=== PATIENT | female | born 1950 | race Caucasian/White ===

== ENCOUNTER → 2024-04-19 13:18 | Outpatient (REF) | payer MEDICARE, OTHER, SELFPAY | LOC: WDC 13:18 | PROVIDERS: ATTENDING PHYSICIAN Obstetrics & Gynecology; FAMILY PHYSICIAN Family Medicine | DX: E55.9 Vitamin D deficiency, unspecified (principal); Z78.0 Asymptomatic menopausal state; Z12.31 Encounter for screening mammogram for malignant neoplasm of breast | CPT/HCPCS: 77080 ==

== ENCOUNTER → 2024-07-06 14:19 | Outpatient (REF) | payer MEDICARE, OTHER, SELFPAY | LOC: RAD 14:19 | PROVIDERS: ATTENDING PHYSICIAN Family Medicine | DX: E04.1 Nontoxic single thyroid nodule (principal) | CPT/HCPCS: 76536 ==

== ENCOUNTER → 2024-11-01 10:23 | Outpatient (REF) | payer MEDICARE, OTHER, SELFPAY ==
[2024-11-01 10:42] VITALS: BP 114/78; BP_SYST 85
== END ==
LOC: RADI 10:23
PROVIDERS: ATTENDING PHYSICIAN Nurse Practitioner Family; FAMILY PHYSICIAN Family Medicine
DX: E04.1 Nontoxic single thyroid nodule (principal)
CPT/HCPCS: 10005; 88173

== ENCOUNTER 2024-11-03 08:48 | Inpatient (IN) | payer MEDICARE, OTHER, SELFPAY ==
[2024-11-02] VITALS (14 sets, daily range): BP systolic 111–147; BP diastolic 51–81; PULSE 89–96; BMI 36.8; BMI 35.8
--- NOTE | 2024-11-02 10:46 | ED.GENMED ---
History of Present Illness
<Brody Lynn PA-C - Last Filed: 11/02/24 15:09>
General
Chief Complaint: Weakness
Time Seen by Provider: 11/02/24 10:31
History of Present Illness
History of Present Illness:
Patient is a 74-year-old female with past medical history of hypertension, prediabetes, and history of von Willebrand's disease, here today for evaluation of lightheadedness over the past 2 weeks. Patient states on 10/21/2024 while shaving she cut
her lower extremity and sustained bleeding. The bleeding lasted for approximately 20 minutes. Patient was evaluated in an urgent care. Bleeding eventually stopped. No intervention was performed. Tetanus vaccination was updated. Patient noted
shortly after that she felt lightheaded. She contacted her bilingual interpreter and blood work was ordered. Hemoglobin was found to be 8.4. Prior hemoglobin in April 2024 was 13.2. Patient's bilingual interpreter was planning on ordering a further workup to
assess why the patient was anemic. The patient has been persistently lightheaded over the past 2 weeks. No syncope. No chest pain or difficulty breathing. No vomiting. No rashes. No bleeding episodes additionally. No other acute complaints.
Of note, the patient recently underwent a thyroid ultrasound which revealed nodules. She had a thyroid biopsy yesterday.
Past History
<Brody Lynn PA-C - Last Filed: 11/02/24 15:09>
Past History
ED Past Medical History: HTN and Other (Von Willebrand's disease.)
ED Past Surgical History: Other (Noncontributory)
Social History
Tobacco: Non-smoker
Alcohol: None
Drug: None
Personal:
Living: with family
Employment: Employed
Family History
Family History: Other (Noncontributory)
Review of Systems
<Brody Lynn PA-C - Last Filed: 11/02/24 15:09>
Review of Systems
All Other Systems: ROS reviewed and negative except as documented in HPI and ROS
Phy Exam
<Brody Lynn PA-C - Last Filed: 11/02/24 15:09>
Physical Exam
Physical Exam:
GENERAL: Alert , in no apparent distress
EYE: pupils equal and reactive, conjunctival pallor
NECK: Supple
ENT: o/p clr, mmm.
CARDIAC: Regular rate and rhythm .
LUNGS: Clear breath sounds bilaterally, no acute respiratory distress, no wheezes/rales/rhonchi
ABDOMEN: Soft, without focal tenderness, no r/g, no cvat
NEUROLOGICAL: Alert and oriented, no focal neuro deficits
SKIN: Warm and dry, skin intact. Paleness to skin.
MUSCULOSKELETAL: No edema, well perfused.
PSYCH: Normal and appropriate interaction.
Course
<Brody Lynn PA-C - Last Filed: 11/02/24 15:09>
Orders/Labs/Results
Orders:
Orders
11/02/24 10:45
Electrocardiogram (*1) Urgent
Reason for Study: Other
Other Reason for Exam: lightheadedness
EKG- Treatment ONCE
11/02/24 11:21
Complete Blood Count/With Diff Urgent
Comprehensive Metabolic Panel Urgent
Ferritin Urgent
Folate Urgent
Iron Urgent
LDH Urgent
Comment: ADD ON
Magnesium Urgent
Phosphorus Urgent
Reticulocyte Count Urgent
Comment: ADD ON
Total Iron Binding Urgent
Troponin I Urgent
Vitamin B12 Urgent
Comment: IRON,FERRITIN,TIBC,FOLATE,B12 ADDED ON BY FLOOR 2:45PM 11-02-24
11/02/24 12:11
Type+Screen Urgent
PTT Urgent
Prothrombin Time Urgent
11/02/24 12:53
* Blood Bank Products Urgent
Blood Bank Products: *Packed RBC Leuko(PRBC's)
Quantity: 1
Transfuse Today: Yes
Reason: Anemia
11/02/24 14:46
Add On- LAB Routine
Tests Added?: iron, ferritin, tibc, folate, vit b12
11/02/24 15:03
Admit/Transfer Patient As Directed
Co-Sign Provider:
Level of Care: Observation services
Assign to:: Telemetry
Physician / Group: Smitha
Diagnosis: Sympatomatic Anemia
Reason for Telemetry: Arrhythmia
Date to Stop Telemetry: 11/05/24
Time to Stop Telemetry: 11:00
Reason for Hospitalization: blood transfusion, anemia work-up
Expected length of stay greater than two midnights?: Yes
ELOS- Estimated Length of Stay in days: 3
I certify the patient meets the requirements for IP care: Yes
PRN Pain Medication Management As Directed
May give lesser potent ordered pain med per pt: Yes
preference::
Protocol:: Medication orders for pain may be administered in a
manner that supports deferring to patient preference
when the pt is:
- Requesting an ordered lesser potent pain medication.
Least to most potent pain medications are defined
as: acetaminophen < NSAID < tramadol < opioids
(morphine, oxycodone, hydromorphone).
- Requesting a lesser dose of the same medication IF
ORDERED.
- Requesting a less intrusive route of administration
if both routes are prescribed by the provider (PO <
IV).
11/02/24 15:04
Code Status As Directed
Resuscitation Status: Full Code
11/02/24 15:14
Add On- LAB Routine
Tests Added?: LDH, haptoglobin and retic count
11/02/24 15:22
Haptoglobin [S] Urgent
11/02/24 17:09
Acetaminophen [Tylenol] 650 mg PO Q4HPRN PRN
Dextrose 50%-Water [Dextrose 50% Syringe] 12.5 grams IV [id number] PRN
Glucagon [GlucaGen] 1 mg IM PRN PRN
Insulin Aspart Corrective Low [Novolog Flexpen-Low Resistance] See Protocol SC AC
11/02/24 17:09
GASTROINTESTINAL CONSULT Routine
Consulting Provider: Adnres George
Was physician already notified: Yes
HEMATOLOGY CONSULT Routine
Consulting Provider: Shane Beckford
Was physician already notified: Yes
Activity As Directed
Activity Level: Out of Bed-Early Mobility
With Assistance
Bedside Glucose Monitoring As Directed
Frequency: AC&HS
Additional Instructions:: Change to q6h if pt on TPN, tube feeding or not eating
I&O [Intake/ Output] As Directed
Frequency: q12h
Orthostatic Vital Signs As Directed
Orthostatic VS Frequency: BID
Pneumatic Compression Sleeves As Directed
Type: Knee high
Vital Signs As Directed
Frequency: Per unit guidelines
DX Deep Vein Thrombosis Video Routine
11/02/24 22:00
H&H Q8H
11/03/24 Breakfast
2000 calorie (17 carb) Diabetic
Basic Metabolic Panel IN AM
Complete Blood Count/No Diff IN AM
H&H Q8H
11/03/24 14:00
H&H Q8H
11/05/24 11:00
DC Protocol for Telemetry ONCE
Abnormal Lab Results
11/02/24 11/02/24
11:21 12:11
RBC 2.01 L 10^6/uL
(4.20-5.40)
Hgb 6.2 L* g/dL
(12.0-16.0)
Hct 19.9 L* %
(37.0-47.0)
MCHC 31.2 L g/dL
(33.0-37.0)
Absolute Monos (auto) 0.7 H 10^3/uL
(0.1-0.6)
Monocytes % 9.9 H %
(1.7-9.3)
Retic Count 4.9 H %
(0.4-2.8)
Chloride 108 H mmol/L
(98-107)
BUN 21 H mg/dl
(7-17)
Iron < 20 L ug/dl
(37-170)
Ferritin 5.9 L ng/ml
(11.1-264.0)
Crossmatch IS Only See Detail
11/02/24 11:21
11/02/24 11:21
Vital Signs
Initial and Last Documented VS:
Initial Vital Signs
Temp Pulse Resp BP
98.2 F 94 20 122/68
11/02/24 09:54 11/02/24 09:54 11/02/24 09:54 11/02/24 09:54
Last Documented Vital Signs
Temp Pulse Resp BP Pulse Ox
98.9 F 87 16 138/69 99
11/02/24 16:20 11/02/24 16:20 11/02/24 16:20 11/02/24 16:20 11/02/24 16:20
<Yovani Mancuso MD - Last Filed: 11/02/24 17:18>
Orders/Labs/Results
Orders:
Orders
11/02/24 10:45
Electrocardiogram (*1) Urgent
Reason for Study: Other
Other Reason for Exam: lightheadedness
EKG- Treatment ONCE
11/02/24 11:21
Complete Blood Count/With Diff Urgent
Comprehensive Metabolic Panel Urgent
Ferritin Urgent
Folate Urgent
Iron Urgent
LDH Urgent
Comment: ADD ON
Magnesium Urgent
Phosphorus Urgent
Reticulocyte Count Urgent
Comment: ADD ON
Total Iron Binding Urgent
Troponin I Urgent
Vitamin B12 Urgent
Comment: IRON,FERRITIN,TIBC,FOLATE,B12 ADDED ON BY FLOOR 2:45PM 11-02-24
11/02/24 12:11
Type+Screen Urgent
PTT Urgent
Prothrombin Time Urgent
11/02/24 12:53
* Blood Bank Products Urgent
Blood Bank Products: *Packed RBC Leuko(PRBC's)
Quantity: 1
Transfuse Today: Yes
Reason: Anemia
11/02/24 14:46
Add On- LAB Routine
Tests Added?: iron, ferritin, tibc, folate, vit b12
11/02/24 15:03
Admit/Transfer Patient As Directed
Co-Sign Provider:
Level of Care: Observation services
Assign to:: Telemetry
Physician / Group: Smitha
Diagnosis: Sympatomatic Anemia
Reason for Telemetry: Arrhythmia
Date to Stop Telemetry: 11/05/24
Time to Stop Telemetry: 11:00
Reason for Hospitalization: blood transfusion, anemia work-up
Expected length of stay greater than two midnights?: Yes
ELOS- Estimated Length of Stay in days: 3
I certify the patient meets the requirements for IP care: Yes
PRN Pain Medication Management As Directed
May give lesser potent ordered pain med per pt: Yes
preference::
Protocol:: Medication orders for pain may be administered in a
manner that supports deferring to patient preference
when the pt is:
- Requesting an ordered lesser potent pain medication.
Least to most potent pain medications are defined
as: acetaminophen < NSAID < tramadol < opioids
(morphine, oxycodone, hydromorphone).
- Requesting a lesser dose of the same medication IF
ORDERED.
- Requesting a less intrusive route of administration
if both routes are prescribed by the provider (PO <
IV).
11/02/24 15:04
Code Status As Directed
Resuscitation Status: Full Code
11/02/24 15:14
Add On- LAB Routine
Tests Added?: LDH, haptoglobin and retic count
11/02/24 15:22
Haptoglobin [S] Urgent
11/02/24 17:09
Acetaminophen [Tylenol] 650 mg PO Q4HPRN PRN
Dextrose 50%-Water [Dextrose 50% Syringe] 12.5 grams IV [id number] PRN
Glucagon [GlucaGen] 1 mg IM PRN PRN
Insulin Aspart Corrective Low [Novolog Flexpen-Low Resistance] See Protocol SC AC
11/02/24 17:09
GASTROINTESTINAL CONSULT Routine
Consulting Provider: Andres George
Was physician already notified: Yes
HEMATOLOGY CONSULT Routine
Consulting Provider: Shane Beckford
Was physician already notified: Yes
Activity As Directed
Activity Level: Out of Bed-Early Mobility
With Assistance
Bedside Glucose Monitoring As Directed
Frequency: AC&HS
Additional Instructions:: Change to q6h if pt on TPN, tube feeding or not eating
I&O [Intake/ Output] As Directed
Frequency: q12h
Orthostatic Vital Signs As Directed
Orthostatic VS Frequency: BID
Pneumatic Compression Sleeves As Directed
Type: Knee high
Vital Signs As Directed
Frequency: Per unit guidelines
DX Deep Vein Thrombosis Video Routine
11/02/24 22:00
H&H Q8H
11/03/24 Breakfast
2000 calorie (17 carb) Diabetic
Basic Metabolic Panel IN AM
Complete Blood Count/No Diff IN AM
H&H Q8H
11/03/24 14:00
H&H Q8H
11/05/24 11:00
DC Protocol for Telemetry ONCE
Abnormal Lab Results
11/02/24 11/02/24
11:21 12:11
RBC 2.01 L 10^6/uL
(4.20-5.40)
Hgb 6.2 L* g/dL
(12.0-16.0)
Hct 19.9 L* %
(37.0-47.0)
MCHC 31.2 L g/dL
(33.0-37.0)
Absolute Monos (auto) 0.7 H 10^3/uL
(0.1-0.6)
Monocytes % 9.9 H %
(1.7-9.3)
Retic Count 4.9 H %
(0.4-2.8)
Chloride 108 H mmol/L
(98-107)
BUN 21 H mg/dl
(7-17)
Iron < 20 L ug/dl
(37-170)
Ferritin 5.9 L ng/ml
(11.1-264.0)
Crossmatch IS Only See Detail
11/02/24 11:21
11/02/24 11:21
Vital Signs
Initial and Last Documented VS:
Initial Vital Signs
Temp Pulse Resp BP
98.2 F 94 20 122/68
11/02/24 09:54 11/02/24 09:54 11/02/24 09:54 11/02/24 09:54
Last Documented Vital Signs
Temp Pulse Resp BP Pulse Ox
98.9 F 87 16 138/69 99
11/02/24 16:20 11/02/24 16:20 11/02/24 16:20 11/02/24 16:20 11/02/24 16:20
<Brody Lynn PA-C - Last Filed: 11/02/24 15:09>
MDM/Problems Addressed
Differential Diagnosis Includes:
Patient is a 74-year-old female with past medical history of hypertension, prediabetes, and history of von Willebrand's disease, here today for evaluation of lightheadedness over the past 2 weeks. Overall, patient well-appearing. She has a normal
and reassuring examination aside from mild paleness to her skin and conjunctival pallor. We will obtain workup including screening labs. Will also obtain EKG.
11/02/2024 14:40: Screening labs reveal anemia with a hemoglobin of 6.2. EKG without evidence of ischemia. Rectal examination was performed which reveals heme-negative stool. Patient did recently have a thyroid biopsy however the biopsy site is
slightly ecchymotic but without firmness or tenderness. No significant swelling. No rapid progression. No rigidity. Do not suspect evolving hematoma. Patient consented for blood. Risks and benefits discussed. Will provide 1 unit PRBCs. Case
discussed with attending, Dr. Mancuso. Plan for admission.
<Brody Lynn PA-C - Last Filed: 11/02/24 15:09>
*Pulse Oximetry
Oxygen Mode of Delivery: Room air
Patient hypoxic: no
*Critical Care Note
Total Time (30-74mins, 75-104mins- exclusive of procedures): Not Applicable
ED Attending Note
<Brody Lynn PA-C - Last Filed: 11/02/24 15:09>
-
Portions of this chart may have been created with voice recognition software.� Occasional wrong word or��sound alike� substitutions may have occurred due to the inherent limitations of voice recognition software.
<Yovani Mancuso MD - Last Filed: 11/02/24 17:18>
ED Attending Note
Patient seen and examined by attending physician: Yes
ED Attending Note:
Patient with history of von Willebrand's disease, presents to ED secondary to worsening generalized weakness along with dizziness over the past 2 weeks. Denies chest pain. Denies fever or chills. Denies recent illness. Denies nausea vomiting, or
diarrhea. Denies recent change in medications or diet.
Patient found to be pale in appearance on exam, along with anemia noted on blood work, significant decrease from her recent blood work. As such, patient will be admitted for blood transfusion, secondary to symptomatic anemia.
Blood transfusion consent on the chart. Patient with heme-negative stool on exam.
Discharge Plan
Departure
Patient Disposition: Admit
Date of Disposition: 11/02/24
Time of Disposition: 14:59
Admit to: Med/Surg
Admit to doctor: Hawa Bone
Presentation/result/management discussed w/ accepting MD/DO: Hospitalist
Patient with high blood pressure during this ER visit?: No
Condition: Serious
Covid-19: Not Applicable
Discharge Problem:
Symptomatic anemia
Interventions
Interventions:
*Risk Screen - Suicide Last Done: 11/02/24 09:54
*General Assessment Last Done: 11/02/24 09:54
*Neglect/Abuse Screening Last Done: 11/02/24 09:54
*ED- Fall Risk Assessment Last Done: 11/02/24 12:00
ED- Cardiac Assessment Last Done: 11/02/24 12:00
ED- Neurological Assessment Last Done: 11/02/24 12:00
ED- Pulmonary Assessment Last Done: 11/02/24 12:00
[2024-11-02 12:03] LABS: ALT (SGPT) 16 U/L (0-35); AST (SGOT) 16 U/L (14-36); Albumin 4.1 g/dl (3.5-5.0); Alkaline Phosphatase 55 U/L (38-126); Blood Urea Nitrogen 21 mg/dl (7-17); Calcium 9.6 mg/dl (8.4-10.2); Carbon Dioxide 25 mmol/L (22-30); Chloride 108 mmol/L (98-107); Estimated Creatinine Clearance 67 ml/min; Glucose 88 mg/dl (70-99); Magnesium 2.1 mg/dl (1.6-2.3); Potassium 4.2 mmol/L (3.5-5.1); Sodium 139 mmol/L (135-145); Total Protein 6.5 g/dl (6.3-8.2); eGFR > 60.00
[2024-11-02 12:05] LABS: Hematocrit 19.9 % (37.0-47.0); Hemoglobin 6.2 g/dL (12.0-16.0); Mean Corp Hgb Conc. 31.2 g/dL (33.0-37.0); Mean Corpuscular Volume 99.0 fL (81.0-99.0); Nucleated Red Blood Cells % 0 %; Platelet Count 307 10^3/uL (130-400); Red Cell Dist. Width 13.2 % (11.5-14.5)
[2024-11-02 12:13] LABS: Troponin I < 0.012 ng/ml
[2024-11-02 12:55] LABS: APTT 35.0 Sec (23.4-35.0); INR 0.97; PT 13.3 Sec (11.4-14.6)
--- NOTE | 2024-11-02 14:59 | HPS.HSE ---
Addendum entered and electronically signed by Hawa Bone MD 11/02/24 19:05:
This is an addendum to H&P written by Radha Ordonez on 11/02/2024. �Patient seen and examined independently with PA.
74-year-old female past medical history of von Willebrand's disease, hypertension, hyperlipidemia, diabetes, obstructive sleep apnea, obesity, presenting with lightheadedness over the past 2 weeks.
On 10/21 while she was shaving she caught her lower extremity and had sustained bleeding. �After she felt lightheaded and contacted pilot boat captain and had blood work which showed hemoglobin 8.4, previously 13.2 in April of this year.
Ongoing lightheadedness without syncope, chest pain or shortness of breath.
She recently underwent thyroid ultrasound which showed nodules and had thyroid biopsy yesterday.
Vital signs normal. �On examination she has some ecchymosis around the thyroid biopsy site.
Hemoglobin of 6.2. �Heme test negative for blood.
Patient with worsening anemia with hemoglobin 6.2 from 13.2 in April of this year.
Unclear etiology of anemia. �Blood loss from shaving and ecchymosis from thyroid biopsy site unlikely to be cause of this degree of anemia. Occult GI bleeding possible. �Check iron studies, B12 and folate. �Hematology consulted. GI consulted.
Original Note:
Family Physician
-
Family Physician: Twila Varela MD
Chief Complaint
-
Dizziness
History of Present Illness
Patient is a 74 y/o female past medical history of diabetes, hypertension and von Willebrand disease who presents with dizziness. Patient reports intermittent episodes of dizziness/lightheadedness for the past few weeks. She reports some mild
dyspnea on exertion but denies any chest pains or palpitations. Work-up in the emergency department revealed her hemoglobin has dropped from 13 earlier this year, to 8 about two weeks ago, and now 6.2 today. Patient reports she cut herself shaving
a few weeks ago but states the bleeding stopped without intervention and states it wasn't a significant amount of blood loss. She had a thyroid biopsy yesterday and did not some bruising around the site, but again not significant. She denies any
black or bloody stools. She denies hematuria or vaginal bleeding.
Medical History
Past Medical History
Past Medical History: Reports Other
Additional Past Medical History:
Diabetes Mellitus, Type II
Essential Hypertension
Hyperlipidemia
Von Willebrand Disease
Osteoarthritis
Obstructive Sleep Apnea
Class II Obesity
Past Surgical History: Reports Other
Additional Past Surgical History:
Left Knee Replacement
Tubal Ligation
[place] Teeth Removal
Social History
Tobacco: Non-smoker
Alcohol: Occasional
Family History
Family History: Not pertinent
Allergies / Home Medications
Allergies reflects when Allergies were last updated in [facility].
Home Medications with original date entered in [facility]
Allergy/Medication List:
Allergies
Allergy/AdvReac Type Severity Reaction Status Date / Time
latex Allergy rash,rednes Verified 11/02/24 09:54
s
Home Medications
ascorbic acid (vitamin C) 500 mg tablet (Vitamin C) 1,000 mg PO DAILY 04/10/12
cholecalciferol (vitamin D3) 10 mcg (400 unit) tablet (Vitamin D3) 800 units PO QPM 04/10/12
acetaminophen 325 mg tablet (Tylenol) 650 mg PO Q6HPRN PRN mild pain 12/11/20
metformin 500 mg tablet 500 mg PO BID 10/30/24
lisinopril 20 mg tablet 20 mg PO DAILY 11/02/24
therapeutic multivitamin 1 tab PO DAILY 11/02/24
Review of Systems
-
A 12 point ROS was completed and negative except as noted: Yes
Constitutional: Denies Fever or Weight Loss
Respiratory: Reports Trouble Breathing; Denies Cough
Cardiac: Denies Chest Pain or Palpitations
Abdomen/GI: Denies Abdominal Pain, Nausea, Vomiting or Diarrhea
Physical Exam
Vital Signs
Vital Signs
Temp Pulse Resp BP Pulse Ox
98.2 F 92 25 126/65 97
11/02/24 09:54 11/02/24 13:00 11/02/24 13:00 11/02/24 12:00 11/02/24 13:00
Physical Exam
General: Comfortable and Conversant
HEENT: Anicteric and Moist mucous membranes
Respiratory: Clear and Non Labored Respirations
Cardiac: S1/S2, Regular Rhythm and Murmur
GI: Soft and Non Tender
Rectal: Hem Negative (Per ED provider)
Musculoskeletal: No Clubbing and No Cyanosis
Skin: Warm and Dry
Neuro: Awake, Alert, Oriented and Nonfocal/grossly intact
Psych: Calm
Laboratory Results
-
11/02/24 11:21
11/02/24 11:21
Laboratory Results
PT 13.3 Sec (11.4-14.6) 11/02/24 12:11
INR 0.97 11/02/24 12:11
APTT 35.0 Sec (23.4-35.0) 11/02/24 12:11
Total Bilirubin 0.4 mg/dl (0.2-1.3) 11/02/24 11:21
AST 16 U/L (14-36) 11/02/24 11:21
ALT 16 U/L (0-35) 11/02/24 11:21
Alkaline Phosphatase 55 U/L (38-126) 11/02/24 11:21
Troponin I < 0.012 ng/ml 11/02/24 11:21
Data Reviewed
-
Lab Data: Labs Reviewed by me
Impression/Plan
-
Symptomatic Anemia
-Consult Hematology and GI
-Transfuse 1 units PRBCs
-Trend serial Hgb
-Check iron studies, vitamin b12, folic acid, LDH, Haptoglobin and Retic Count
Diabetes Mellitus, Type II
-Hold metformin
-Monitor sugars and continue coverage insulin
Essential Hypertension
-Continue lisinopril
Class II Obesity due to Excess Calories
-Affects all aspects of care
DVT proph: SCDs
Code Status: Full Code
--- NOTE | 2024-11-02 15:03 | CON.GI ---
Addendum entered and electronically signed by Andres George MD 11/02/24 16:08:
I saw and examined the patient.
The GASOLINE CATALYST OPERATOR or PA's note was reviewed and I agree with the note.
Comment: 74yo female presents with fatigue and SOB. Hgb in ER 6.2, MCV 99. She has hx von Willebrand's disease and recently saw He Beckford for routine f/u. Hgb was 13 in March this year. Recent OP labs showed Hgb down to 8.4. She cut
herself shaving couple weeks ago that took some time to stop. She also had thyroid biopsy yesterday. She denies BPR, melena, dysphagia, gerd, n/v, early satiety. She had colonoscopy in [address] Baer that found 2.5cm hepatic flexure polyp
removed and tattooed with instructions to repeat in 6 months. She states she had colonoscopy in 2020 but we do not have the records. She required pre-meds before colonoscopy for her hx von Willebrand's disease coordinated by He. No prior EGD
REC:
Transfuse PRBC
No overt or occult GI bleeding (heme negative in ER)
Iron studies pending
With no signs of active bleeding at this time, I recommended she get colonoscopy with Dr Baer as outpt and consider EGD at same time with pre-meds per He.
It sounds like she was also due for colonoscopy at this time
Also f/u with Heme for causes for anemia other than GI blood loss
Check haptoglobin, LDH, retic, B12, folate as well
Please call back if needed
Original Note:
Consultation
-
Date/Time Consultation Requested: 11/02/24 1500
Date/Time Consultation Performed: 11/02/24 1500
Requesting Provider: Radha Childers PA-C
Performing Provider: XAVI Smith, Andres George MD
Reason for Consultation: anemia
Medical History
Chief Complaint / HPI
Chief Complaint: weakness
History of Present Illness:
Pt is a 74yo with hx von willebrand's disease, meningoma, NIDDM- pre DM, HTN, sleep apnea, thyroid nodule with onset of weakness for 2 weeks. She is noted with hbg 13.2 in April 2024 She had recent cut while shaving which took 20 minutes to stop
then had OP hemoglobin 8.4 with drop to 6.2 today on admission with MCV 99, BUN 21 with iron studies pending. In review of outpatient chart pt had colonoscopy in 2018 with removal of 2.5cm sessile serrated polyp with placement of 5 clips and
tattooed at site(no path reviewed). Repeat colonoscopy was recommended 6-12 months. She did have repeat in 2020 with report not reviewed and due again soon for repeat testing with Dr. Baer. She recently went to see Dr. Beckford for follow up
prior to colonoscopy as she requires pre treatment prior to GI procedures with hx von Willebrand's. She was due follow up again in November.
At this time she admits to increased weakness. She did see recent blood with cut during shaving and also some local bleeding after thyroid biopsy prior to admission but otherwise denies any GI, vaginal or urinary bleeding. She denies any
issue with dysphagia, GERD, nausea, vomiting, abdominal pain, diarrhea, constipation or wt loss. Rectal exam in ER with heme neg stool.
Past Medical History
Past Medical History: Cancer (meningioma), HTN, NIDDM (pre DM) and Other (von Willebrands disease, obesity, low vitamin D level, lyme disease, osteoarthritis , sleep apnea, thyroid nodule )
Past Surgical History: Appendectomy
Social History
Tobacco: Non-Smoker
Alcohol: Occasional (rare )
Drug: None
Personal:
Living: With Family
Employment: Employed (per chart )
Family History
Family History: Reviewed & Not Pertinent
Allergies / Home Medications
Allergy/AdvReac Type Severity Reaction Status Date / Time
latex Allergy rash,rednes Verified 11/02/24 09:54
s
�Medication �Instructions �Recorded
ascorbic acid (vitamin C) 500 mg 1,000 mg PO DAILY 04/10/12
tablet (Vitamin C)
cholecalciferol (vitamin D3) 10 800 units PO QPM 04/10/12
mcg (400 unit) tablet (Vitamin D3)
lisinopril 5 mg tablet 10 mg PO DAILY 04/10/12
multivitamin (Daily Multiple 1 ea PO DAILY 04/10/12
tablet)
Tylenol 1,000 PO Q4H PRN knee pain 12/11/20
metformin 500 mg tablet 500 mg PO BID 10/30/24
Review of Systems
-
History Source: Patient
Constitutional: Reports Fatigue
EENT: Reports No Symptoms
Respiratory: Reports No Symptoms
Abdomen/GI: Reports No Symptoms
: Reports No Symptoms
Musculoskeletal: Reports No Symptoms
Skin: Reports No Symptoms
Neurological: Reports Weakness
Hematologic/Lymphatic: Reports Bleeding (recent bleeding with cut on leg with shaving and some bruising after thyroid biopsy 11/01)
Vital Signs
Temp Pulse Resp BP Pulse Ox
98.2 F 92 25 126/65 97
11/02/24 09:54 11/02/24 13:00 11/02/24 13:00 11/02/24 12:00 11/02/24 13:00
Physical Exam
Exam
General: Well Developed, Well Nourished and No Apparent Distress
HEENT: Normocephalic and Anicteric
Respiratory: Clear
Cardiac: Regular Rhythm
GI: Soft, Non Tender and Non Distended
Rectal: Other (heme neg per ER)
Musculoskeletal: No Clubbing and No Cyanosis
Skin: Other (leg cut with shaving healed, neck with some bruising after biopsy prior to ER evaluation)
Neuro: Awake, Alert and AO x 3
Psych: Calm
Results
WBC 7.1 10^3/uL (4.8-10.8) 11/02/24 11:21
Hgb 6.2 g/dL (12.0-16.0) L* 11/02/24 11:21
Hct 19.9 % (37.0-47.0) L* 11/02/24 11:21
MCV 99.0 fL (81.0-99.0) 11/02/24 11:21
Plt Count 307 10^3/uL (130-400) 11/02/24 11:21
Absolute Neuts (auto) 4.3 10^3/uL (1.4-6.5) 11/02/24 11:21
PT 13.3 Sec (11.4-14.6) 11/02/24 12:11
INR 0.97 11/02/24 12:11
APTT 35.0 Sec (23.4-35.0) 11/02/24 12:11
Sodium 139 mmol/L (135-145) 11/02/24 11:21
Potassium 4.2 mmol/L (3.5-5.1) 11/02/24 11:21
Chloride 108 mmol/L (98-107) H 11/02/24 11:21
Carbon Dioxide 25 mmol/L (22-30) 11/02/24 11:21
BUN 21 mg/dl (7-17) H 11/02/24 11:21
Creatinine 0.8 mg/dL (0.6-1.0) 11/02/24 11:21
Calcium 9.6 mg/dl (8.4-10.2) 11/02/24 11:21
Total Bilirubin 0.4 mg/dl (0.2-1.3) 11/02/24 11:21
AST 16 U/L (14-36) 11/02/24 11:21
ALT 16 U/L (0-35) 11/02/24 11:21
Alkaline Phosphatase 55 U/L (38-126) 11/02/24 11:21
Diagnostic Image Results:
11/01 thyroid biopsy with ultrasound
Prior GI Procedures:
EGD: none
Colonoscopy: 2006- [place] hemorrhoids
colonoscopy [address] Baer with removal of 2.5cm sessile serrated polyp with placement of 5 clips and tattooed at site(no path reviewed). Repeat colonoscopy was recommended 6-12 months.
She did have repeat in 2020 with report not reviewed with Dr. Baer.
Assessment / Plan
-
Pt is a 74yo with hx von Willebrand's disease, meningoma, NIDDM- pre DM, HTN, sleep apnea, thyroid nodule with onset of weakness for 2 weeks. She is noted with hbg 13.2 in April 2024 She had recent cut while shaving which took 20 minutes to stop
then had OP hemoglobin 8.4 with drop to 6.2 today on admission with MCV 99, BUN 21 with iron studies pending. In review of outpatient chart pt had colonoscopy in 2018 with removal of 2.5cm sessile serrated polyp with placement of 5 clips and
tattooed at site(no path reviewed). Repeat colonoscopy was recommended 6-12 months. She did have repeat in 2020 with report not reviewed and due again soon for repeat testing with Dr. Baer. She recently went to see Dr. Beckford for follow up
prior to colonoscopy as she requires pre treatment prior to GI procedures with hx von Willebrand's. She was due follow up again in November. Pt otherwise denies any GI, vaginal or urinary bleeding. Rectal exam in ER with heme neg stool.
-normocytic anemia heme neg
-hx resection of large Sessile serrated polyp 2018
-recent bleeding about 1/2 cup for leg with shaving
-neck bruising post thyroid biopsy 11/01
-hx von Willebrand's disease
other med problems:
-meningoma
-NIDDM- pre DM
- HTN
-sleep apnea
-hx appe
PLAN:
etiology of anemia related to hematologic etiology with high normal MCV and heme neg stool, vs local source with leg cut bleeding/ local neck bruising after thryroid biopsy though either site did not seen to have volume to quantify loss vs other
agree with transfusion
hematology evaluation
iron studies, b12, folate pending
will add retic count, LHD and haptoglobin
reviewed with patient with no signs of aggressive GI bleeding return to Dr. Baer for OP colon as planned and consider adding EGD
pt will need pre treatment prior to procedures per hematology
ok to cont diet
-
-
Thank you for consultation and allowing me to participate in the patient's care. Please call the agronomy teacher GI physician during the after hours with any questions or concerns.
--- NOTE | 2024-11-02 15:21 | CM ---
Addendum entered by María Murillo 11/02/24 16:33:
CAMARA Notice explained; form signed @ 1630
Original Note:
Met with patient at bedside in the ED
Pharmacy verified: [facility] @ [address]
Lives w/ spouse; 0ne floor modular home; 4 steps to enter; railing present; bath has walk-in shower with grab bar
PLOF: reported she was independent with ambulation, stairs and ADLs; retired; drives
DME: CPAP, Glucometer
No SNF or Home Health utilization history
Spouse will transport
Discharge plan to be determined; case management will monitor and coordinate needs if recommended
[2024-11-02 15:27] LABS: Iron < 20 ug/dl (37-170)
[2024-11-02 15:29] LABS: LDH 175 U/L (120-246)
[2024-11-02 15:33] LABS: Total Iron Binding Capacity 414 ug/dl (265-497)
[2024-11-02 15:48] LABS: Reticulocyte Count 4.9 % (0.4-2.8)
[2024-11-02 16:12] LABS: Ferritin 5.9 ng/ml (11.1-264.0)
[2024-11-02 17:18] LABS: Folate > 20.0 ng/ml (2.76-20); Vitamin B12 418 pg/ml (239-931)
[2024-11-02 17:32] LABS: Glucose - Point of Care 150 mg/dl (70-99)
[2024-11-02] MEDS: NOVOLOG FLEXPEN-LOW RESISTANCE 1 UNITS SC (18:05)
--- NOTE | 2024-11-02 18:14 | PTCARENOTE ---
pt presents from ED via stretcher. pt w/ hgb of 6.2 with 1 unit of PRBCs on gravity from ED. pt is AAO*3, pt c/o slight dizziness, denies any pain/sob. pt is oriented to the room. call escalera within the reach. plan of care ongoing.
[2024-11-02 21:09] LABS: Glucose - Point of Care 146 mg/dl (70-99)
[2024-11-02 22:33] LABS: Hematocrit 20.8 % (37.0-47.0); Hemoglobin 6.6 g/dL (12.0-16.0)
[2024-11-03] VITALS (9 sets, daily range): BP systolic 119–158; BP diastolic 65–84; PULSE 75–98
--- NOTE | 2024-11-03 03:00 | PTCARENOTE ---
Pt aaox3 able to make her needs known.Pt lab called with critical lab results Hgb-6.6 & hct-20.8 XAVI Alcazar made aware of it. Pt asymptomatic & VSS.1 unit of blood ordered on pt & am labs post transfusion.Plan of care continued on pt.
[2024-11-03 07:16] LABS: Glucose - Point of Care 133 mg/dl (70-99)
[2024-11-03] MEDS: ZESTRIL 20 MG PO (07:24)
[2024-11-03] MEDS: NOVOLOG FLEXPEN-LOW RESISTANCE SC (07:26)
[2024-11-03 08:32] LABS: Hematocrit 24.2 % (37.0-47.0); Hemoglobin 7.8 g/dL (12.0-16.0); Mean Corp Hgb Conc. 32.2 g/dL (33.0-37.0); Mean Corpuscular Volume 93.1 fL (81.0-99.0); Platelet Count 272 10^3/uL (130-400); Red Cell Dist. Width 15.8 % (11.5-14.5)
--- NOTE | 2024-11-03 09:09 | W.PN.HOSP.TC ---
Today's Communication/Plan
-
f/w hematology recommendations
Cancel insulin and Acu-checks( pt refuses insulin)
Resume metformin
Low iron
Assessment / Plan
Assessment / Plan
Physical Exam
General: Comfortable and Conversant
HEENT: Anicteric and Moist mucous membranes
Respiratory: Clear and Non Labored Respirations
Cardiac: S1/S2, Regular Rhythm and Murmur
GI: Soft and Non Tender
Rectal: Hem Negative (Per ED provider)
Musculoskeletal: No Clubbing and No Cyanosis
Skin: Warm and Dry
Neuro: Awake, Alert, Oriented and Nonfocal/grossly intact
Psych: Calm
# Severe symptomatic Anemia
s/p 2 units of blood
Will d/w hematology about more transfusion to get HGB >8
-Consulted Hematology and GI
GI doctor: With no signs of active bleeding at this time, Recommended to get colonoscopy with Dr Baer as outpt and consider EGD at same time with pre-meds per Heme
-Normal bilirubin vitamin b12, folic acid, LDH.
Low iron level, replace
High Retic count
Haptoglobin is pending
Diabetes Mellitus, Type II
-Pt wants metformin
Refuses insulin, will cancel Acu-check . her BG not very high
Essential Hypertension
-Continue lisinopril
Class II Obesity due to Excess Calories
-Affects all aspects of care
DVT proph: SCDs
Code Status: Full Code
Total time spent to see the patient, examine the patient, review data and lab results, discuss treatment plan with patient, nursing staff around 55 minutes
Anticipated Discharge: Within 24 hours
Subjective/Interval History
-
Date of Service: November 03, 2024
No chest pain
No sob
No fevers
Objective Data
-
Labs:
Laboratory Results
0911/03/24 11/03/24
22:08 06:36 14:00
WBC 7.0
Hgb 6.6 L* 7.8 L Pending
Hct 20.8 L* 24.2 L Pending
Plt Count 272
Sodium Pending
Potassium Pending
Chloride Pending
Carbon Dioxide Pending
BUN Pending
Creatinine Pending
Glucose Pending
Calcium Pending
Vital Signs:
Vital Signs
Temp Pulse Resp BP Pulse Ox
98.5 F 75 16 137/74 100
11/03/24 07:20 11/03/24 07:24 11/03/24 07:20 11/03/24 07:24 11/03/24 08:50
I&O
11/02/24 11/03/24 11/04/24
06:59 06:59 06:59
Intake Total 1230 / 1230
Balance 1230 / 1230
[2024-11-03 09:11] LABS: Blood Urea Nitrogen 16 mg/dl (7-17); Calcium 9.0 mg/dl (8.4-10.2); Carbon Dioxide 23 mmol/L (22-30); Chloride 111 mmol/L (98-107); Estimated Creatinine Clearance 88 ml/min; Glucose 118 mg/dl (70-99); Potassium 4.0 mmol/L (3.5-5.1); Sodium 137 mmol/L (135-145); eGFR > 60.00
[2024-11-03] MEDS: GLUCOPHAGE 500 MG PO (09:11)
--- NOTE | 2024-11-03 12:09 | CON.ONC ---
Documented by User: Kiara Figueroa DO, Resident 11/03/24 13:43
Consultation
-
Date Consultation Requested: 11/02/24
Date Consultation Performed: 11/03/24
Requesting Provider: Radha Childers PA-C
Performing Provider: Dr. Deluca
Reason for Consultation: Sympomatic Anemia
Impression
Impression
Symptomatic Iron Deficiency Anemia
von Willebrand disease
Essential Hypertension
Plan
Plan
-Patient with symptomatic anemia found to have hemoglobin of 6.2. In the ED reticulocyte count was elevated at 4.9, her iron was decreased at <20, her TIBC was normal at 414, her ferritin was low at 5.9.
-At this point in a patient with von Willebrand disease, blood loss as a source of her anemia is most likely until proven otherwise. Unfortunately there is no clear source for her bleed as her stool is heme negative and she has no significant
reported history that would explain her low hemoglobin
-Ordered US of the neck to evaluate site of biopsy to ensure there is no hematoma
-Start iron infusion therapy. She can continue this infusion at the office if incomplete at time of discharge
-Following discharge from hospital she will need follow up with Dr. Beckford at the office
-Will monitor
Patient History
History of Present Illness
This is a 74 y/o female with pmhx of von Willebrand disease, Essential Hypertension, Hyperlipidemia who presented to the ED on 11/02/2024 with 2 weeks of lightheadedness. She follows with outpatient hematology at [facility] with Dr. Beckford.
Preceding this visit to the ED on 10/21/2024 she did cut herself while bleeding and noted sustained bleeding but ultimately this resolved spontaneously. Outpatient lab work by her mountain or glacier guide noted a hemoglobin of 8.4, decreased from 13.2 in 04/2024.
In the ED, her hemoglobin was 6.2. Her reticulocyte count was elevated at 4.9, her iron was decreased at <20, her TIBC was normal at 414, her ferritin was low at 5.9. No prior iron studies are available in hospital records. Her stool was negative
for blood. She was transfused with 1 units of pRBC, which increased her hemoglobin to 6.6 so she was transfused with a 2nd unit of pRBCs. GI was consulted, who recommended outpatient colonoscopy with possible EGD.
Today her hemoglobin was 7.8. She is with her . She is free from chest pain, shortness of breath, dizziness, weakness, changes in her vision, lightheadedness, abdominal pain, nausea, vomiting, constipation and diarrhea. She feels much better
today than she did when she came in prior to her blood transfusion.
Past-Medical/Surgical History
von Willebrand disease
Essential Hypertension
Hyperlipidemia
Appendectomy 01/1978
Tubal ligation 01/1978
L knee replacement 08/2017
Patient Medication
�Medication �Instructions �Recorded �Confirmed �Last Taken �Type
ascorbic acid (vitamin C) 500 mg 1,000 mg PO DAILY Supplement 04/10/12 11/02/24 11/01/24 History
tablet (Vitamin C)
cholecalciferol (vitamin D3) 10 800 units PO QPM Supplement 04/10/12 11/02/24 11/01/24 History
mcg (400 unit) tablet (Vitamin D3)
acetaminophen 325 mg tablet 650 mg PO Q6HPRN PRN mild pain 12/11/20 11/02/24 11/01/24 History
(Tylenol)
metformin 500 mg tablet 500 mg PO BID Gastrointestinal 10/30/24 11/02/24 11/02/24 History
Issue
lisinopril 20 mg tablet 20 mg PO DAILY Blood Pressure 11/02/24 11/02/24 11/01/24 History
therapeutic multivitamin 1 tab PO DAILY Supplement 11/02/24 11/02/24 11/01/24 History
Active Medications
Generic Name Dose Route Start Last Admin
Trade Name Freq PRN Reason Stop Dose Admin
Acetaminophen 650 mg 11/02/24 17:09
Acetaminophen 325 Mg Tablet PO 11/30/24 17:08
Q4HPRN PRN
mild pain/ fever>100.5F
Dextrose 12.5 grams 11/02/24 17:09
Dextrose 50% (0.5 Grams/Ml) 50 Ml Syringe IV 11/30/24 17:08
[id number] PRN
hypoglycemia
Protocol
Glucagon 1 mg 11/02/24 17:09
Glucagon 1 Mg Vial IM 11/30/24 17:08
PRN PRN
hypoglycemia
Protocol
Insulin Aspart 0 units 11/02/24 17:09 11/03/24 07:26
Insulin Aspart Low Resistance 300 Units/3 Ml Pen.Injctr SC 11/30/24 17:08 Not Given
On Hold: 11/03/24 09:06 AC TYLER
Comment: pt refuses insulin Protocol
Lisinopril 20 mg 11/03/24 08:00 11/03/24 07:24
Lisinopril 20 Mg Tablet PO 12/01/24 07:59 20 mg
DAILY TYLER Administration
Sodium Chloride 0 flush 11/02/24 18:00
Sodium Chloride 0.9% (Flush) Syringe IV 11/30/24 17:59
PER PROTOCOL TYLER
Review of Systems
-
History Source: Patient
Constitutional: Denies Fever, Fatigue, Chills or Weakness
Respiratory: Denies Cough or Wheezing
Cardiac: Denies Chest Pain, Palpitations or Syncope
GI: Denies Abdominal Pain, Nausea, Vomiting, Diarrhea, Constipated or Bloody Stools
: Denies Bleeding or Vaginal Bleeding
Neuro: Denies Dizzy, Headache or Weakness
Hematologic/Lymphatic: Reports Bruising (Neck after thyroid biopsy); Denies Bleeding
Physical Exam
-
General: Well Developed, Well Nourished, No Apparent Distress and Comfortable
Cardiology: Normal Sinus Rhythm, S1 and S2
Pulmonary: Clear
Skin: Warm, Dry and Other (Large bruise overlying the neck several cm in diamter)
Psych: Calm
Labs
Lab Results
WBC 7.0 10^3/uL (4.8-10.8) 11/03/24 06:36
RBC 2.60 10^6/uL (4.20-5.40) L 11/03/24 06:36
Hgb 7.8 g/dL (12.0-16.0) L 11/03/24 06:36
Hct 24.2 % (37.0-47.0) L 11/03/24 06:36
MCV 93.1 fL (81.0-99.0) 11/03/24 06:36
MCH 30.0 pg (27.0-31.0) 11/03/24 06:36
MCHC 32.2 g/dL (33.0-37.0) L 11/03/24 06:36
RDW 15.8 % (11.5-14.5) H 11/03/24 06:36
Plt Count 272 10^3/uL (130-400) 11/03/24 06:36
MPV 9.8 fL (7.4-10.4) 11/03/24 06:36
Abs Immat Gran (auto) 0.0 10^3/uL (0-0.05) 11/02/24 11:21
Absolute Neuts (auto) 4.3 10^3/uL (1.4-6.5) 11/02/24 11:21
Absolute Lymphs (auto) 2.0 10^3/uL (1.2-3.4) 11/02/24 11:21
Absolute Monos (auto) 0.7 10^3/uL (0.1-0.6) H 11/02/24 11:21
Absolute Eos (auto) 0.1 10^3/uL (0-0.7) 11/02/24 11:21
Absolute Basos (auto) 0.0 10^3/uL (0-0.2) 11/02/24 11:21
Immature Gran % 0.4 % (0-0.5) 11/02/24 11:21
Neutrophils % 60.3 % (42.2-75.2) 11/02/24 11:21
Lymphocytes % 27.8 % (20.5-51.1) 11/02/24 11:21
Monocytes % 9.9 % (1.7-9.3) H 11/02/24 11:21
Eosinophils % 1.0 % (0-6) 11/02/24 11:21
Basophils % 0.6 % (0-2) 11/02/24 11:21
Creatinine 0.6 mg/dL (0.6-1.0) 11/03/24 06:36
Vital Signs
Vital Signs
Temp Pulse Resp BP Pulse Ox
98.3 F 77 16 139/74 98
11/03/24 11:20 11/03/24 11:20 11/03/24 11:20 11/03/24 11:20 11/03/24 11:20

Documented by User: Brian Deluca MD 11/03/24 14:04
Plan
Plan
-Patient with symptomatic anemia found to have hemoglobin of 6.2. In the ED reticulocyte count was elevated at 4.9, her iron was decreased at <20, her TIBC was normal at 414, her ferritin was low at 5.9.
-At this point in a patient with von Willebrand disease, blood loss as a source of her anemia is most likely until proven otherwise. Unfortunately there is no clear source for her bleed as her stool is heme negative and she has no significant
reported history that would explain her low hemoglobin
-Ordered US of the neck to evaluate site of biopsy to ensure there is no hematoma
-Start iron infusion therapy. She can continue this infusion at the office if incomplete at time of discharge
-Following discharge from hospital she will need follow up with Dr. Beckford at the office
-Will monitor
Hematology Addendum:
Patient seen and evaluated and agree w/ resident note and plan as outlined
-h/o vWD of Dr. Beckford - now w/ symptomatic anemia - iron deficiency
-hemoglobin improved s/p transfusion PRBCs
-proceed w/ IV iron repletion therapy
-GI consulted
-check thyroid/neck US - to evaluate for possible hematoma - s/p thyroid biopsy last week
-follow CBC
Will continue to follow with you.
[2024-11-03 13:54] LABS: Hematocrit 25.4 % (37.0-47.0); Hemoglobin 8.1 g/dL (12.0-16.0)
[2024-11-03] MEDS: FERRLECIT 110 MG IV (14:45)
--- NOTE | 2024-11-03 15:47 | CM ---
Spoke with patient in room . Pt changed to inpatient IMM given reviewed signed and on chart.
Pt required blood transfusions.
Offered Vn pt declined VN at ok.
Brian will drive her home.
PLAN Home no needs
[2024-11-04 03:15] VITALS: BP 115/62
[2024-11-04 07:00] VITALS: BP 149/75
[2024-11-04] MEDS: ZESTRIL 20 MG PO (08:03)
[2024-11-04 09:50] LABS: Hematocrit 25.7 % (37.0-47.0); Hemoglobin 8.1 g/dL (12.0-16.0); Mean Corp Hgb Conc. 31.5 g/dL (33.0-37.0); Mean Corpuscular Volume 94.8 fL (81.0-99.0); Platelet Count 293 10^3/uL (130-400); Red Cell Dist. Width 15.3 % (11.5-14.5)
--- NOTE | 2024-11-04 09:50 | W.PN.HOSP.TC ---
Today's Communication/Plan
-
Possible dc
f/w hematology recommendations
Assessment / Plan
Assessment / Plan
Physical Exam
General: Comfortable and Conversant
HEENT: Anicteric and Moist mucous membranes
Respiratory: Clear and Non Labored Respirations
Cardiac: S1/S2, Regular Rhythm and Murmur
GI: Soft and Non Tender
Rectal: Hem Negative (Per ED provider)
Musculoskeletal: No Clubbing and No Cyanosis
Skin: Warm and Dry
Neuro: Awake, Alert, Oriented and Nonfocal/grossly intact
Psych: Calm
# Severe symptomatic Anemia
s/p 2 units of blood
Iron deficiency anemia, given IV Iron
-Consulted Hematology and GI
GI doctor: With no signs of active bleeding at this time, Recommended to get colonoscopy with Dr Baer as outpt and consider EGD at same time with pre-meds per Heme
-Normal bilirubin vitamin b12, folic acid, LDH.
Low iron level, replace
High Retic count
Haptoglobin is pending
Diabetes Mellitus, Type II
-Pt wanted metformin
Refuses insulin, will cancel Acu-check . her BG not very high
Essential Hypertension
-Continue lisinopril
Class II Obesity due to Excess Calories
-Affects all aspects of care
DVT proph: SCDs
Code Status: Full Code
Total time spent to see the patient, examine the patient, review data and lab results, discuss treatment plan with patient, nursing staff around 55 minutes
Anticipated Discharge: Today
Subjective/Interval History
-
Date of Service: November 04, 2024
No complaints
Objective Data
-
Labs:
Laboratory Results
11/04/24
09:06
WBC Pending
Hgb Pending
Hct Pending
Plt Count Pending
Vital Signs:
Vital Signs
Temp Pulse Resp BP Pulse Ox
98 F 79 16 149/75 98
11/04/24 07:00 11/04/24 07:00 11/04/24 07:00 11/04/24 07:00 11/04/24 07:00
I&O
11/03/24 11/04/24 11/05/24
06:59 06:59 06:59
Intake Total 1230 / 1230 770 / 770
Balance 1230 / 1230 770 / 770
--- NOTE | 2024-11-04 10:52 | CM ---
Addendum entered by Malgorzata Rae 11/04/24 10:52:
Potential d/c today. Patient denies needs from CM, denies need for VN. Confirms transportation home. IMM provided 11/03.
CM will continue to follow for all discharge planning needs.
Plan; home no needs.
Original Note:
CM reviewed chart, patient seen bedside
[2024-11-04 11:00] VITALS: BP 114/65
--- NOTE | 2024-11-04 12:07 | W.PN.ONC ---
Today's Communication / Plan
-
Continue IV iron while hospitalized; add'l iron can be arranged as outpatient
Needs colonoscopy, but best to be done by Dr. Baer as her prior colonoscopy was challenging related to tortuosity, and required 2 assistants.
Okay for d/c home - she'll contact Dr. Baer's office on Wednesday to expedite colonoscopy scheduling
Will need Humate-P before and likely after procedure, per Dr. Beckford
Impression
Impression
Symptomatic Iron Deficiency Anemia
von Willebrand disease
Essential Hypertension
Plan
Plan
Continue IV iron while hospitalized; add'l iron can be arranged as outpatient
Needs colonoscopy, but best to be done by Dr. Baer as her prior colonoscopy was challenging related to tortuosity, and required 2 assistants.
Okay for d/c home - she'll contact Dr. Baer's office on Wednesday to expedite colonoscopy scheduling
Will need Humate-P before and likely after procedure, per Dr. Beckford
Subjective/Objective
Subjective/Objective
no complaints, no signs of GI bleeding - bms are normal appearing
Vital Signs:
Vital Signs
Temp Pulse Resp BP Pulse Ox
98.4 F 74 16 114/65 98
11/04/24 11:00 11/04/24 11:00 11/04/24 11:00 11/04/24 11:00 11/04/24 11:00
Lab Results:
Laboratory Data
WBC 7.6 10^3/uL (4.8-10.8) 11/04/24 09:06
Hgb 8.1 g/dL (12.0-16.0) L 11/04/24 09:06
Plt Count 293 10^3/uL (130-400) 11/04/24 09:06
PT 13.3 Sec (11.4-14.6) 11/02/24 12:11
INR 0.97 11/02/24 12:11
APTT 35.0 Sec (23.4-35.0) 11/02/24 12:11
eGFR > 60.00 11/03/24 06:36
[2024-11-04] MEDS: FERRLECIT 110 MG IV (13:12)
[2024-11-04 15:00] VITALS: BP 146/72
--- NOTE | 2024-11-04 15:35 | W.PN.UPDATE ---
Update Note
Progress Note Update
Addendum
Discharge planning. After discussing with hematology and gastroenterology on-call for today, plan to discharge patient home to follow-up with her GI doctor to pursue colonoscopy. That was explained to the patient in details, she verbalized
understanding. She received today's dose of IV iron. HGB stable.
At time of discharge, patient was tearful and reported that she felt (was left with no answers - requesting to have colonoscopy here). Daughter on the phone, Dipti Bonilla (nurse), reported that patient was having black tarry stools infrequently
over time. Of note, patient denied prior eepisodes black stool/melena by multiple reports since admission. Will place discharge on hold, reach out to hematology and GI doctors. Appreciate consultants help.
Will follow. Updated nursing staff.
End
[2024-11-04 17:12] LABS: Glucose - Point of Care 140 mg/dl (70-99)
[2024-11-04] MEDS: GLUCOPHAGE 500 MG PO (17:29)
[2024-11-04 19:13] VITALS: BP 123/60; BP 131/62; BP 140/69; PULSE 76; PULSE 80; PULSE 93
[2024-11-04 23:29] VITALS: BP 115/70
[2024-11-05] VITALS (8 sets, daily range): BP systolic 97–138; BP diastolic 57–75; PULSE 82–93
[2024-11-05 07:18] LABS: Hematocrit 23.9 % (37.0-47.0); Hemoglobin 7.6 g/dL (12.0-16.0); Mean Corp Hgb Conc. 31.8 g/dL (33.0-37.0); Mean Corpuscular Volume 95.6 fL (81.0-99.0); Platelet Count 279 10^3/uL (130-400); Red Cell Dist. Width 14.9 % (11.5-14.5)
[2024-11-05 07:40] LABS: Blood Urea Nitrogen 13 mg/dl (7-17); Calcium 9.6 mg/dl (8.4-10.2); Carbon Dioxide 25 mmol/L (22-30); Chloride 109 mmol/L (98-107); Estimated Creatinine Clearance 88 ml/min; Glucose 115 mg/dl (70-99); Potassium 4.5 mmol/L (3.5-5.1); Sodium 140 mmol/L (135-145); eGFR > 60.00
[2024-11-05] MEDS: ZESTRIL 20 MG PO (07:41)
[2024-11-05] MEDS: GLUCOPHAGE 500 MG PO ×2 (07:41→17:05)
--- NOTE | 2024-11-05 10:49 | W.PN.ONC ---
Addendum entered and electronically signed by Kristin Rutherford MD 11/05/24 16:19:
EGD planned for Wednesday
I ordered Humate-P, 40units/kg, to be given ~1 hour prior to EGD on 11/06
Original Note:
Today's Communication / Plan
-
Continue IV iron, monitor CBC daily
Getting another unit pRBCs currently (3rd this admission)
Await next bowel movement for heme testing -- if melena or grossly heme+, would give Humate-P and consider tranexemic acid as well as a temporizing measure, until colonoscopy can be done, either here at or with Dr. Baer at [place].
d/w Dr Mason
Her von willebrand disease has been classified previously at type 2A, but with low factor 8 level and lack of response to ddAVP, it seems more like type 3, though her clinical picture is not that severe (heavy menses, but no other bleeding issues
until her 50s). She'll benefit from vW genetic testing as an outpatient (we can order at her next office visit w/ Dr. Beckford).
Impression
Impression
Symptomatic Iron Deficiency Anemia
von Willebrand disease - with low factor VIII levels, vWF activity & vWF Ag, and absence of high and intermediate e weight multimers, not responsive to ddAVP
Essential Hypertension
Plan
Plan
Continue IV iron, monitor CBC daily
Getting another unit pRBCs currently (3rd this admission)
Await next bowel movement for heme testing -- if melena or grossly heme+, would give Humate-P and consider tranexemic acid as well as a temporizing measure, until colonoscopy can be done, either here at or with Dr. Baer at [place].
Her von willebrand disease has been classified previously at type 2A, but with low factor 8 level and lack of response to ddAVP, it seems more like type 3, though her clinical picture is not that severe (heavy menses, but no other bleeding issues
until her 50s). She'll benefit from vW genetic testing as an outpatient (we can order at her next office visit w/ Dr. Beckford).
Subjective/Objective
Subjective/Objective
Mild drop in hgb from 8.1 yesterday to 7.6 today
Reports a dark BM yesterday, unfortunately not sent for heme testing
Upset about lack of answers, worried about ongoing GI bleeding
Vital Signs:
Vital Signs
Temp Pulse Resp BP Pulse Ox
98.2 F 77 18 97/62 98
11/05/24 10:36 11/05/24 10:36 11/05/24 10:36 11/05/24 10:36 11/05/24 10:36
Lab Results:
Laboratory Data
WBC 7.8 10^3/uL (4.8-10.8) 11/05/24 06:52
Hgb 7.6 g/dL (12.0-16.0) L 11/05/24 06:52
Plt Count 279 10^3/uL (130-400) 11/05/24 06:52
PT 13.3 Sec (11.4-14.6) 11/02/24 12:11
INR 0.97 11/02/24 12:11
APTT 35.0 Sec (23.4-35.0) 11/02/24 12:11
eGFR > 60.00 11/05/24 06:52
Orders
Orders
Orders From Last 24 Hours
11/05/24 09:37
Von Willebrand Multimeric Rodriguez [S] Routine
--- NOTE | 2024-11-05 11:26 | W.PN.HOSP.TC ---
Addendum entered and electronically signed by Daniela Mason MD 11/05/24 14:20:
Addendum
I reach out to Dr. Hernandez, discussed drop in hemoglobin. Encouraged to do heme test stool and tentatively plan for EGD Wednesday or Wednesday. Updated oncology regarding need for factor replacement therapy.
End
Original Note:
Today's Communication/Plan
-
f/w GI recommendations, pt requesting inpt colonoscopy and to communicate with her daughter ( Dipti ( nurse).
d/w hematology, c/w IV Iron, ok for blood transfusion, do CAT scan of abdomen and pelvis .
Heme test stool
Assessment / Plan
Assessment / Plan
Physical Exam
General: Comfortable and Conversant
HEENT: Anicteric and Moist mucous membranes
Respiratory: Clear and Non Labored Respirations
Cardiac: S1/S2, Regular Rhythm and Murmur
GI: Soft and Non Tender
Rectal: Hem Negative (Per ED provider)
Musculoskeletal: No Clubbing and No Cyanosis
Skin: Warm and Dry
Neuro: Awake, Alert, Oriented and Nonfocal/grossly intact
Psych: Calm
# Severe symptomatic Anemia
Patient denied black stool/tarry stool since admission on multiple reports. She did not have nausea/vomiting/abdominal pain. Later on, patient and her daughter reported infrequent episodes of tarry stools.
s/p 2 units of blood, HGB 7.6 from 8.1, will give another unit 11/05. No black stools but will heme test if she will have BM. BUN is normal.
Iron deficiency anemia, given IV Iron
GI doctor: With no signs of active bleeding at this time, Recommended to get colonoscopy with Dr Baer as outpt and consider EGD at same time with pre-meds per Heme. Patient became tearful on discharge and requested colonoscopy . GI radio television announcer was
made aware
Will do CAT scan of abdomen and pelvis
-Normal bilirubin vitamin b12, folic acid, LDH.
Low iron level, replace
High Retic count
Haptoglobin is normal
d/w Hematology, ok to give blood.
Diabetes Mellitus, Type II
-Pt wanted metformin
Refuses insulin, will cancel Acu-check . her BG not very high
Recent thyroid biopsy for nodule
US no post op hematoma. Biopsy c/w benign findings.
Essential Hypertension
-Continue lisinopril
Class II Obesity due to Excess Calories
-Affects all aspects of care
DVT proph: SCDs
Code Status: Full Code
Total time spent to see the patient, examine the patient, review data and lab results, discuss treatment plan with patient, nursing staff around 55 minutes
Anticipated Discharge: 24 - 48 hours
Subjective/Interval History
-
Date of Service: November 05, 2024
No abdominal pain
No diarrhea or rectal bleeding over night
Objective Data
-
Labs:
Laboratory Results
11/05/24
06:52
WBC 7.8
Hgb 7.6 L
Hct 23.9 L
Plt Count 279
Sodium 140
Potassium 4.5
Chloride 109 H
Carbon Dioxide 25
BUN 13
Creatinine 0.6
Glucose 115 H
Calcium 9.6
Vital Signs:
Vital Signs
Temp Pulse Resp BP Pulse Ox
98.2 F 77 18 97/62 98
11/05/24 10:36 11/05/24 10:36 11/05/24 10:36 11/05/24 10:36 11/05/24 10:36
I&O
11/04/24 11/05/24 11/06/24
06:59 06:59 06:59
Intake Total 770 / 770 720 / 720 0 / 0
Balance 770 / 770 720 / 720 0 / 0
[2024-11-05] MEDS: OMNIPAQUE 50 ML PO (11:31)
--- NOTE | 2024-11-05 13:01 | CM ---
CM reviewed chart, d/c held from yesterday.
Patient seen bedside, denies needs from CM at this time.
Patient receiving blood today.
GI following.
CM will continue to follow for all discharge planning needs.
Plan; home no needs, watch for VN needs
[2024-11-05] MEDS: FERRLECIT 110 MG IV (14:30)
[2024-11-06] VITALS (11 sets, daily range): BP systolic 20–149; BP diastolic 55–90; PULSE 79–87
[2024-11-06] MEDS: ZESTRIL 20 MG PO (08:44)
[2024-11-06] MEDS: GLUCOPHAGE 500 MG PO ×2 (08:45→17:37)
--- NOTE | 2024-11-06 08:56 | W.PN.HOSP.TC ---
Today's Communication/Plan
-
await EGD results; Humate 1 hour prior
IV Iron
Assessment / Plan
Assessment / Plan
Assessment:
Severe symptomatic Anemia
- Patient denied black stool/tarry stool since admission on multiple reports. She did not have nausea/vomiting/abdominal pain. Later on, patient and her daughter reported infrequent episodes of tarry stools.
- heme test negative
- s/p 3 units PRBCs; Hb 8.6 today
- Also iron deficiency on IV iron
- EGD today
- GI recommended to get colon[place] with [place] as outpatient
- Hematology also following
von Willebrand disease - with low factor VIII levels, vWF activity & vWF Ag
- not responsive to DDAVP
- will receive Humate-P 1 hour prior to EGD
- Hematology also following
Type 2 DM
- continue Metformin
- refusing SSI and accu-checks
Recent thyroid biopsy for nodule
- US no post op hematoma. Biopsy c/w benign findings.
Essential Hypertension
- continue lisinopril
Class II Obesity due to Excess Calories
- Affects all aspects of care
DVT proph: SCDs
Code Status: Full Code
Anticipated Discharge: 24 - 48 hours
Subjective/Interval History
-
Date of Service: November 06, 2024
last documented stool brown, formed on 11/04
family reports intermittent melena
Objective Data
-
Labs:
Laboratory Results
11/06/24
06:57
WBC Pending
Hgb Pending
Hct Pending
Plt Count Pending
Sodium Pending
Potassium Pending
Chloride Pending
Carbon Dioxide Pending
BUN Pending
Creatinine Pending
Glucose Pending
Calcium Pending
Total Bilirubin Pending
AST Pending
ALT Pending
Alkaline Phosphatase Pending
Vital Signs:
Vital Signs
Temp Pulse Resp BP Pulse Ox
98.3 F 69 18 123/64 97
11/06/24 08:24 11/06/24 08:24 11/06/24 08:24 11/06/24 08:44 11/06/24 08:24
I&O
11/05/24 11/06/24 11/07/24
06:59 06:59 06:59
Intake Total 720 / 720 1440 / 1440
Balance 720 / 720 1440 / 1440
Physical Exam
-
General: No Apparent Distress
HEENT: Normocephalic and Atraumatic
Respiratory: Negative Wheezes
Cardiac: Regular Rhythm and S1/S2
GI: Soft
Genito-urinary: No Costovertebral Tender
Neuro: AO x 3
Psych: Calm
Data Reviewed
-
Total Time Spent with Patient (in minutes): 42
Labs: Labs Reviewed by me
--- NOTE | 2024-11-06 09:00 | PTCARENOTE ---
pt aaox3. states no pain or sob. heart tone reg. pt asking questions about egd and a bleeding scan. hosp MD at bedside to answer questions. pt npo
[2024-11-06 09:03] LABS: Hematocrit 27.4 % (37.0-47.0); Hemoglobin 8.6 g/dL (12.0-16.0); Mean Corp Hgb Conc. 31.4 g/dL (33.0-37.0); Mean Corpuscular Volume 96.1 fL (81.0-99.0); Platelet Count 266 10^3/uL (130-400); Red Cell Dist. Width 15.0 % (11.5-14.5)
--- NOTE | 2024-11-06 09:52 | W.PN.UPDATE ---
Update Note
Progress Note Update
updated patient and she is agreeable for EGD today with continued anemia, stool are brown on 11/04 but iron deficient indices. For infusion prior to EGD with hx von Willebrand's disease. Plan for colon per Dr. Bang after EGD pending EGD results.
Ideally Dr. Baer follow up with hx advanced polyp. cont NPO. All questions answered. Reviewed with nursing for timing of EGD and infusion. hbg 8.6 today -- total 3 units given during admission. Heme following.
[2024-11-06 10:04] LABS: ALT (SGPT) 14 U/L (0-35); AST (SGOT) 15 U/L (14-36); Albumin 3.7 g/dl (3.5-5.0); Alkaline Phosphatase 57 U/L (38-126); Blood Urea Nitrogen 13 mg/dl (7-17); Calcium 9.1 mg/dl (8.4-10.2); Carbon Dioxide 23 mmol/L (22-30); Chloride 109 mmol/L (98-107); Estimated Creatinine Clearance 88 ml/min; Glucose 95 mg/dl (70-99); Potassium 4.1 mmol/L (3.5-5.1); Sodium 138 mmol/L (135-145); Total Protein 6.0 g/dl (6.3-8.2); eGFR > 60.00
[2024-11-06] MEDS: HUMATE-P (FACTOR VIII/VON WILLEBRAND) 30 UNIT IV ×2 (11:13→23:33)
--- NOTE | 2024-11-06 11:30 | W.PN.ONC2 ---
Today's Communication / Plan
-
EGD today. Give humate P 1 hour prior to procedure. If biopsy performed during EGD, give tranexamic acid.
Continue IV iron, trend CBC
Patient to call to schedule outpatient colonoscopy as soon as possible
Impression
Impression
# Symptomatic Iron Deficiency Anemia
# von Willebrand disease - with low factor VIII levels, vWF activity & vWF Ag; not responsive to DDAVP. Previously classified at Type 2, but likely type 3 given lack of response to DDAVP.
# Essential Hypertension
Plan
Plan
Continue IV iron, monitor CBC daily
EGD today, to receive Humat-P 1 hour prior to procedure. Repeat Humate-P to be given 12 hours after dose today, and prior to colonoscopy tomorrow.
Biopsy was performed during EGD today, so will give tranexemic acid 1300 mg PO TID.
Hemeoccult test negative.
Patient to call to schedule outpatient colonoscopy with Dr. Baer at [place].
Patient to get vW genetic testing as outpatient-to be ordered at next office visit with Dr. Beckford.
Subjective/Objective
Subjective
No new complaints including any bleeding. Patient states she feels well. She passed a bowel movement around 10 AM today, negative for blood. Patient to get EGD performed today.
Vital Signs:
Vital Signs
Temp Pulse Resp BP Pulse Ox
99.1 F 78 22 121/68 99
11/06/24 12:35 11/06/24 12:50 11/06/24 12:50 11/06/24 12:50 11/06/24 12:50
Lab Results:
Laboratory Data
WBC 6.9 10^3/uL (4.8-10.8) 11/06/24 06:57
Hgb 8.6 g/dL (12.0-16.0) L 11/06/24 06:57
Plt Count 266 10^3/uL (130-400) 11/06/24 06:57
PT 13.3 Sec (11.4-14.6) 11/02/24 12:11
INR 0.97 11/02/24 12:11
APTT 35.0 Sec (23.4-35.0) 11/02/24 12:11
eGFR > 60.00 11/06/24 06:57
Physical Exam
HEENT: Moist Mucous Membranes
Cardiology: Normal Sinus Rhythm
Pulmonary: Clear
GI: Soft
Extremities: Pulses Present
[2024-11-06] MEDS: FERRLECIT 110 MG IV (14:08)
--- NOTE | 2024-11-06 15:03 | CM ---
EGD today: Duodenitis, Gastritis, Biopies, polyp excised. IV/Humate-P x1. Discharge POC: Anticipate home with no needs.
[2024-11-06] MEDS: CYKLOKAPRON 1300 MG PO ×2 (15:17→21:01)
[2024-11-06] MEDS: NULYTELY SOLUTION 4 LITERS PO (17:37)
[2024-11-07 07:20] VITALS: BP 136/67
[2024-11-07] MEDS: CITROMA 300 ML PO (08:23)
[2024-11-07] MEDS: GLUCOPHAGE PO ×2 (08:35→16:05)
[2024-11-07] MEDS: ZESTRIL 20 MG PO (08:36)
[2024-11-07 08:44] LABS: Hematocrit 28.6 % (37.0-47.0); Hemoglobin 9.0 g/dL (12.0-16.0); Mean Corp Hgb Conc. 31.5 g/dL (33.0-37.0); Mean Corpuscular Volume 98.3 fL (81.0-99.0); Platelet Count 298 10^3/uL (130-400); Red Cell Dist. Width 15.9 % (11.5-14.5)
[2024-11-07 08:54] LABS: Blood Urea Nitrogen 11 mg/dl (7-17); Calcium 9.3 mg/dl (8.4-10.2); Carbon Dioxide 25 mmol/L (22-30); Chloride 107 mmol/L (98-107); Estimated Creatinine Clearance 88 ml/min; Glucose 96 mg/dl (70-99); Potassium 4.0 mmol/L (3.5-5.1); Sodium 139 mmol/L (135-145); eGFR > 60.00
[2024-11-07] MEDS: CYKLOKAPRON 1300 MG PO ×3 (09:00→21:06)
--- NOTE | 2024-11-07 09:24 | W.PN.HOSP.TC ---
Today's Communication/Plan
-
colonoscopy today
Assessment / Plan
Assessment / Plan
Assessment:
Severe symptomatic Anemia
- Patient denied black stool/tarry stool since admission on multiple reports. She did not have nausea/vomiting/abdominal pain. Later on, patient and her daughter reported infrequent episodes of tarry stools.
- heme test negative
- s/p 3 units PRBCs; Hb 9.0 today
- Also iron deficiency on IV iron
- EGD 11/06: gastritis, duodenitis s/p biopsies
- Colonoscopy: today
- Hematology also following
von Willebrand disease - with low factor VIII levels, vWF activity & vWF Ag
- not responsive to DDAVP
- will receive Humate-P 1 hour prior to colonoscopy
- Hematology also following
Type 2 DM
- continue Metformin
- refusing SSI and accu-checks
Recent thyroid biopsy for nodule
- US no post op hematoma. Biopsy c/w benign findings.
Essential Hypertension
- continue lisinopril
Class II Obesity due to Excess Calories
- Affects all aspects of care
DVT proph: SCDs
Code Status: Full Code
Anticipated Discharge: Within 24 hours
Subjective/Interval History
-
Date of Service: November 07, 2024
resting comfortably, no complaints at present
Hb 9.0
Objective Data
-
Labs:
Laboratory Results
11/07/24
06:45
WBC 7.6
Hgb 9.0 L
Hct 28.6 L
Plt Count 298
Sodium 139
Potassium 4.0
Chloride 107
Carbon Dioxide 25
BUN 11
Creatinine 0.6
Glucose 96
Calcium 9.3
Vital Signs:
Vital Signs
Temp Pulse Resp BP Pulse Ox
98.3 F 77 18 136/67 94
11/07/24 07:20 11/07/24 07:20 11/07/24 07:20 11/07/24 07:20 11/07/24 07:20
I&O
11/06/24 11/07/24 11/08/24
06:59 06:59 06:59
Intake Total 1440 / 1440 2510 / 2510
Balance 1440 / 1440 2510 / 2510
Physical Exam
-
General: No Apparent Distress
HEENT: Normocephalic and Atraumatic
Respiratory: Negative Wheezes
Cardiac: Regular Rhythm and S1/S2
GI: Soft
Neuro: AO x 3
Psych: Calm
Data Reviewed
-
Total Time Spent with Patient (in minutes): 41
Labs: Labs Reviewed by me
[2024-11-07] MEDS: NULYTELY SOLUTION 4 LITERS PO (10:48)
--- NOTE | 2024-11-07 10:55 | W.PN.ONC ---
Today's Communication / Plan
-
EGD on 11/06 without obvious/acute bleeding source, biopsies taken
Colonoscopy was to be done today, postponed until 11/08 due to poor prep
Continue TXA s/p EGD biopsies yesterday
For Humate-P prior to colonoscopy tomorrow
outpatient vW genetic testing - to be ordered at next office visit with Dr. Beckford.
Final dose of IV iron today
Impression
Impression
# Symptomatic Iron Deficiency Anemia
# von Willebrand disease - with low factor VIII levels, vWF activity & vWF Ag; not responsive to DDAVP. Previously classified at Type 2, but likely type 3 given lack of response to DDAVP.
# Essential Hypertension
Plan
Plan
EGD on 11/06 without obvious/acute bleeding source, biopsies taken
Colonoscopy was to be done today, postponed until 11/08 due to poor prep
Continue TXA s/p EGD biopsies yesterday
For Humate-P prior to colonoscopy tomorrow
outpatient vW genetic testing - to be ordered at next office visit with Dr. Beckford.
Final dose of IV iron today
Subjective/Objective
Subjective/Objective
Upset that colonoscopy can't be done today in light of poor prep - still w/ brown stool
Vital Signs:
Vital Signs
Temp Pulse Resp BP Pulse Ox
98.3 F 77 18 136/67 94
11/07/24 07:20 11/07/24 07:20 11/07/24 07:20 11/07/24 07:20 11/07/24 07:20
Lab Results:
Laboratory Data
WBC 7.6 10^3/uL (4.8-10.8) 11/07/24 06:45
Hgb 9.0 g/dL (12.0-16.0) L 11/07/24 06:45
Plt Count 298 10^3/uL (130-400) 11/07/24 06:45
PT 13.3 Sec (11.4-14.6) 11/02/24 12:11
INR 0.97 11/02/24 12:11
APTT 35.0 Sec (23.4-35.0) 11/02/24 12:11
eGFR > 60.00 11/07/24 06:45
--- NOTE | 2024-11-07 11:42 | CM ---
Home when stable, no needs
Plan; Home
[2024-11-07] MEDS: FERRLECIT 110 MG IV (14:00)
[2024-11-07 15:17] VITALS: BP 120/78
--- NOTE | 2024-11-07 15:39 | W.PN.GI.CBS2 ---
Today's Communication / Plan
-
c/w more colonic cleanse
Moved Cscope to tomorrow
Will follow with you
Assessment / Plan
-
Pt is a 74yo with hx von Willebrand's disease, meningoma, NIDDM- pre DM, HTN, sleep apnea, thyroid nodule with onset of weakness for 2 weeks. She is noted with hbg 13.2 in April 2024 She had recent cut while shaving which took 20 minutes to stop
then had OP hemoglobin 8.4 with drop to 6.2 today on admission with MCV 99, BUN 21 with iron studies pending. In review of outpatient chart pt had colonoscopy in 2018 with removal of 2.5cm sessile serrated polyp with placement of 5 clips and
tattooed at site(no path reviewed). Repeat colonoscopy was recommended 6-12 months. She did have repeat in 2020 with report not reviewed and due again soon for repeat testing with Dr. Baer. She recently went to see Dr. Beckford for follow up
prior to colonoscopy as she requires pre treatment prior to GI procedures with hx von Willebrand's. She was due follow up again in November. Pt otherwise denies any GI, vaginal or urinary bleeding. Rectal exam in ER with heme neg stool.
Impression
-normocytic anemia heme neg
-hx resection of large Sessile serrated polyp 2018
-recent bleeding about 1/2 cup for leg with shaving
-neck bruising post thyroid biopsy 11/01
-hx von Willebrand's disease
-meningoma
-NIDDM- pre DM
- HTN
-sleep apnea
-hx appe
Plan
- C/w golytle prep another 4L today
- Anticipate Cscope tomorrow once stools clear
- She will get hematate 1hr prior to procedure
- Appreciate hematology recommendations
- Anticipate hosp d/c tomorrow post Cscope if no acute findings seen
Will follow with you
Subjective
Subjective
Date of Service: November 07, 2024
She only drank 3/4 of Golytle yesterday. BM today per RN still brown and opaque. Denies abd pain, nausea/vomiting
Objective
Data Reviewed
Laboratory Data:
Laboratory Results
11/07/24 06:45
11/07/24 06:45
Laboratory Results
PT 13.3 Sec (11.4-14.6) 11/02/24 12:11
INR 0.97 11/02/24 12:11
APTT 35.0 Sec (23.4-35.0) 11/02/24 12:11
Phosphorus 4.1 mg/dl (2.5-4.5) 11/02/24 11:21
Magnesium 2.1 mg/dl (1.6-2.3) 11/02/24 11:21
Total Bilirubin 0.5 mg/dl (0.2-1.3) 11/06/24 06:57
AST 15 U/L (14-36) 11/06/24 06:57
ALT 14 U/L (0-35) 11/06/24 06:57
Alkaline Phosphatase 57 U/L (38-126) 11/06/24 06:57
Vital Signs and I&O:
Vital Signs
Temp Pulse Resp BP Pulse Ox
97.5 F 76 18 120/78 96
11/07/24 15:17 11/07/24 15:17 11/07/24 15:17 11/07/24 15:17 11/07/24 15:17
I&O
11/06/24 11/07/24 11/08/24
06:59 06:59 06:59
Intake Total 1440 / 1440 2509
Balance 1440 / 1440 2509
Physical Exam
Physical Exam
GEN: No acute distress, conversant
HEENT: anicteric, extraocular movements intact, clear oropharynx without exudates
GI: soft, obese non-distended, not tender to palpation, normal active bowel sounds, no hepatosplenomegaly
EXT: warm, well perfused, trace edema bilaterally
NEURO: AAOx3, non-focal
[2024-11-07 15:57] LABS: Glucose - Point of Care 98 mg/dl (70-99)
[2024-11-07 19:08] VITALS: BP 137/79; BP 141/75; BP 144/82; PULSE 76; PULSE 78; PULSE 82
[2024-11-07 23:13] VITALS: BP 133/72
[2024-11-08 07:21] LABS: Hematocrit 28.9 % (37.0-47.0); Hemoglobin 9.1 g/dL (12.0-16.0); Mean Corp Hgb Conc. 31.5 g/dL (33.0-37.0); Mean Corpuscular Volume 96.0 fL (81.0-99.0); Platelet Count 266 10^3/uL (130-400); Red Cell Dist. Width 15.9 % (11.5-14.5)
[2024-11-08 07:25] VITALS: BP 125/81; BP 141/85; BP 149/79; PULSE 81; PULSE 85
[2024-11-08 07:35] LABS: Blood Urea Nitrogen 7 mg/dl (7-17); Calcium 9.2 mg/dl (8.4-10.2); Carbon Dioxide 25 mmol/L (22-30); Chloride 108 mmol/L (98-107); Estimated Creatinine Clearance 88 ml/min; Glucose 115 mg/dl (70-99); Potassium 3.8 mmol/L (3.5-5.1); Sodium 140 mmol/L (135-145); eGFR > 60.00
[2024-11-08] MEDS: HUMATE-P (FACTOR VIII/VON WILLEBRAND) 35 UNIT IV (08:12)
[2024-11-08] MEDS: CYKLOKAPRON 1300 MG PO ×2 (08:13→15:52)
[2024-11-08] MEDS: GLUCOPHAGE PO (08:13)
[2024-11-08] MEDS: ZESTRIL 20 MG PO (08:13)
--- NOTE | 2024-11-08 08:35 | VATNOTE ---
L AC is red, warm, and hard. Per pt, her site infiltrated yesterday and was removed. Area measures 11cm in width x 7cm in length. Pt c/o pain at center of site. Warm compresses applied. This VAT RN asked pt's PCN to make doctor aware on rounds. Will
continue to monitor.
--- NOTE | 2024-11-08 09:13 | CM ---
Continue with prep .
For colonoscopy
Had iron infusions.
PLAN Home with anticipated needs
--- NOTE | 2024-11-08 09:19 | W.PN.HOSP.TC ---
Addendum entered and electronically signed by Caren Hernandez MD 11/08/24 14:36:
US: Occlusive thrombus involving the left cephalic vein from the distal aspect of the upper arm to the antecubital region - superficial thrombus after discussion with radiology. clinically correlates with site of prior IV
plan: apply warm compresses to site
Original Note:
Today's Communication/Plan
-
dc after 4pm TXA
Assessment / Plan
Assessment / Plan
Assessment:
Severe symptomatic Anemia
- Patient denied black stool/tarry stool since admission on multiple reports. She did not have nausea/vomiting/abdominal pain. Later on, patient and her daughter reported infrequent episodes of tarry stools.
- heme test negative
- s/p 3 units PRBCs; Hb 9.1 today
- s/p 5 days IV iron; oral iron q48h at discharge
- EGD 11/06: gastritis, duodenitis s/p biopsies
- Colonoscopy: with polypectomy, internal hemorrhoids and diverticular disease
- diet at discharge: high fiber with benefiber daily
von Willebrand disease - with low factor VIII levels, vWF activity & vWF Ag
- not responsive to DDAVP
- s/p Humate with procedures
- TXA x 24 hours further per Hematology also following; working on sourcing supply
Type 2 DM
- continue Metformin
- refusing SSI and accu-checks
Recent thyroid biopsy for nodule
- US no post op hematoma. Biopsy c/w benign findings.
Essential Hypertension
- continue lisinopril
Class II Obesity due to Excess Calories
- Affects all aspects of care
DVT proph: SCDs
Code Status: Full Code
Anticipated Discharge: Today
Subjective/Interval History
-
Date of Service: November 08, 2024
s/p colonoscopy with polyp removal, diverticular disease, Internal hemorrhoids
Objective Data
-
Labs:
Laboratory Results
11/08/24
06:17
WBC 7.0
Hgb 9.1 L
Hct 28.9 L
Plt Count 266
Sodium 140
Potassium 3.8
Chloride 108 H
Carbon Dioxide 25
BUN 7
Creatinine 0.6
Glucose 115 H
Calcium 9.2
Vital Signs:
Vital Signs
Temp Pulse Resp BP Pulse Ox
97.6 F 81 18 141/85 95
11/08/24 07:25 11/08/24 07:25 11/08/24 07:25 11/08/24 07:25 11/08/24 07:25
I&O
11/07/24 11/08/24 11/09/24
06:59 06:59 06:59
Intake Total 2510 / 2510 2880 / 2880
Balance 2510 / 2510 2880 / 2880
Physical Exam
-
General: No Apparent Distress
HEENT: Normocephalic and Atraumatic
Respiratory: Negative Wheezes
Cardiac: Regular Rhythm and S1/S2
GI: Soft and Nontender
Genito-urinary: No Costovertebral Tender
Neuro: AO x 3
Psych: Calm
Data Reviewed
-
Total Time Spent with Patient (in minutes): 41
Labs: Labs Reviewed by me
[2024-11-08 09:52] VITALS: BP 114/66
[2024-11-08 10:00] VITALS: BP 107/70
[2024-11-08 10:15] VITALS: BP 128/65
--- NOTE | 2024-11-08 10:49 | W.PN.ONC2 ---
Today's Communication / Plan
-
Stable for discharge from our standpoint.
Patient to follow-up with Dr. Beckford outpatient -next appointment in November. CBC and iron panel to be done then as patient only received 3 bags of IV iron during this hospital stay.
Impression
Impression
# Symptomatic Iron Deficiency Anemia
# von Willebrand disease
-With low factor VIII levels, vWF activity & vWF Ag; not responsive to DDAVP. Previously classified at Type 2, but likely type 3 given lack of response to DDAVP. Patient received Humate-P.
- EGD performed on 11/06/2024 with no obvious/acute bleeding source. Biopsy was taken. Patient was given tranexamic acid postprocedure.
- Colonoscopy planned for today. One 4 mm polyp in the cecum, removed with a cold biopsy forceps. One 5 mm polyp in the sigmoid colon- removed with a jumbo cold forceps. Diverticulosis in the descending colon and sigmoid colon. Internal
hemorrhoids.
- Last IV iron given yesterday. Patient only received 3 bags of IV iron in the hospital (normally should get 1000 mg IV iron). Patient to follow up with Dr. Beckford in third week of November (which is already scheduled)- patient to get CBC and iron
panel then.
- Recommend outpatient vW genetic testing -Dr. Beckford.
# Essential Hypertension
-As per primary team
Plan
Plan
EGD on 11/06 did not reveal source of bleeding. Given TXA after biopsy was taken.
Colonoscopy performed today, 2 polyps noted with diverticulosis and internal hemorrhoids.
Final dose of IV iron was given yesterday, patient to have CBC and iron panel done at office visit with Dr. Beckford in November as patient only received 3 bags of IV iron.
outpatient vW genetic testing - to be ordered at next office visit with Dr. Beckford.
From our standpoint, patient is stable to be discharged.
Subjective/Objective
Subjective
Patient feels well today. She had her colonoscopy this morning. No new complaints including bleeding. She states she has an appointment with Dr. Zepeda towards the end of November.
Vital Signs:
Vital Signs
Temp Pulse Resp BP Pulse Ox
98.7 F 74 15 128/65 98
11/08/24 10:22 11/08/24 10:15 11/08/24 09:54 11/08/24 10:15 11/08/24 10:27
Lab Results:
Laboratory Data
WBC 7.0 10^3/uL (4.8-10.8) 11/08/24 06:17
Hgb 9.1 g/dL (12.0-16.0) L 11/08/24 06:17
Plt Count 266 10^3/uL (130-400) 11/08/24 06:17
PT 13.3 Sec (11.4-14.6) 11/02/24 12:11
INR 0.97 11/02/24 12:11
APTT 35.0 Sec (23.4-35.0) 11/02/24 12:11
eGFR > 60.00 11/08/24 06:17
Physical Exam
HEENT: Moist Mucous Membranes
Cardiology: Normal Sinus Rhythm, S1 and S2
Pulmonary: Clear
GI: Soft and Normal Bowel Sounds
Orders
Orders
Orders From Last 24 Hours
11/07/24 14:33
Factor VIII,Antihemoph/Von Delroy [Humate-P (Factor VIII/Von Willebrand)] 3,752 unit IV TODAY PRN
11/08/24 08:00
Factor VIII,Antihemoph/Von Delroy [Humate-P (Factor VIII/Von Willebrand)] 3,793 unit Syringe [Syringe-Pump] 0 ml IV ONCE
--- NOTE | 2024-11-08 11:47 | W.DCSUMMARY ---
Discharge Summary
Discharge Data
Date of Admission: 11/03/24
Date of Discharge: 11/08/24
-
Pending Results: No
Hospital Course
74 y/o F with history of Von Willebrands disease who presented with symptomatic anemia with Hb 6.2. She was found to have iron deficiency. She received 3 units PRBC and IV iron course x 5 doses. She underwent EGD and colonoscopy without active
bleeding noted. She was followed by Hematology as well and was provided Humate and TXA prior to her procedures. She will follow up with her GI doctor (Dr. Baer) outpatient for potential capsule study. She was discharged with recommendations for
oral iron and daily fiber.
Discharge Plan
-
Patient Disposition: Home (Routine Discharge)
Discharge Diagnosis/Procedures: Iron deficiency anemia s/p IV iron infusions; continue oral iron
EGD and colonoscopy.
Condition: Fair
Diet: As tolerated and Other diet
Additional Diets: high fiber diet and daily benefiber per GI
Activity: As tolerated
Referrals:
Shane Beckford DO [Active, Hematology / Oncology] - in less than 1 week
Shreya Baer MD [Non-Admitting Privileges] - in two to three weeks
Twila Varela MD [Family Provider, Family Practice] - in one week
Prescriptions:
New
tranexamic acid 650 mg Tablet
1,300 mg PO TID Qty: 6 0RF
Continued
ascorbic acid (vitamin C) [Vitamin C] 500 MG tablet
1,000 mg PO DAILY
cholecalciferol (vitamin D3) [Vitamin D3] 400 UNITS tablet
800 units PO QPM
acetaminophen [Tylenol] 325 mg Tablet
650 mg PO Q6HPRN PRN (Reason: mild pain)
metformin 500 mg Tablet
500 mg PO BID
lisinopril 20 mg Tablet
20 mg PO DAILY
therapeutic multivitamin Tablet
1 tab PO DAILY
Discharge Orders:
Discharge Patient (As Directed); Ordered 11/08/24
Ordered By: Caren Hernandez
Discharge Date and Time
Print Language: NEPALI
--- NOTE | 2024-11-08 11:57 | CM ---
MD entered order for discharge.
Pt said she was ready for discharge today .
IMM copy given reviewed and signed on chart.
Lesly will drive her home today .
Offered VN she declined need.
PLAN Home no needs
[2024-11-08 15:11] VITALS: BP 119/62
== END 2024-11-08 16:36 | disposition home or self-care (01) | DRG 378 ==
LOC: 4 EAST ACU 08:48
PROVIDERS: Internal Medicine; Internal Medicine Gastroenterology; Internal Medicine Hematology & Oncology; Physician Assistant; Physician Assistant Medical; ADMITTING PHYSICIAN Hospitalist; ATTENDING PHYSICIAN Internal Medicine; CONSULT PHYSICIAN Specialist; EMERGENCY PHYSICIAN Emergency Medicine; FAMILY PHYSICIAN Family Medicine; OTHER PHYSICIAN Internal Medicine Hematology & Oncology
PROC: 30233N1 Transfusion of Nonautologous Red Blood Cells into Peripheral Vein, Percutaneous Approach (ICD-10-PCS; 2024-11-02)
PROC: 5A09357 Assistance with Respiratory Ventilation, Less than 24 Consecutive Hours, Continuous Positive Airway Pressure (ICD-10-PCS; 2024-11-02)
PROC: 0DB68ZX Excision of Stomach, Via Natural or Artificial Opening Endoscopic, Diagnostic (ICD-10-PCS; 2024-11-06)
PROC: 0DB78ZX Excision of Stomach, Pylorus, Via Natural or Artificial Opening Endoscopic, Diagnostic (ICD-10-PCS; 2024-11-06)
PROC: 0DB98ZX Excision of Duodenum, Via Natural or Artificial Opening Endoscopic, Diagnostic (ICD-10-PCS; 2024-11-06)
PROC: 0DBN8ZZ Excision of Sigmoid Colon, Via Natural or Artificial Opening Endoscopic (ICD-10-PCS; 2024-11-08)
PROC: 0DBH8ZZ Excision of Cecum, Via Natural or Artificial Opening Endoscopic (ICD-10-PCS; 2024-11-08)
DX: K57.31 Diverticulosis of large intestine without perforation or abscess with bleeding (principal); D68.00 Von Willebrand disease, unspecified; I82.612 Acute embolism and thrombosis of superficial veins of left upper extremity; D50.9 Iron deficiency anemia, unspecified; I10 Essential (primary) hypertension; E11.649 Type 2 diabetes mellitus with hypoglycemia without coma; S81.819A Laceration without foreign body, unspecified lower leg, initial encounter; E78.5 Hyperlipidemia, unspecified; M19.90 Unspecified osteoarthritis, unspecified site; E66.812 Obesity, class 2; E04.1 Nontoxic single thyroid nodule; E55.9 Vitamin D deficiency, unspecified; G47.33 Obstructive sleep apnea (adult) (pediatric); K29.70 Gastritis, unspecified, without bleeding; K29.80 Duodenitis without bleeding; K31.7 Polyp of stomach and duodenum; D12.5 Benign neoplasm of sigmoid colon; D12.0 Benign neoplasm of cecum; K64.8 Other hemorrhoids; W26.8XXA Contact with other sharp object(s), not elsewhere classified, initial encounter; Y93.E8 Activity, other personal hygiene; Y92.002 Bathroom of unspecified non-institutional (private) residence as the place of occurrence of the external cause; Z96.652 Presence of left artificial knee joint; Z68.35 Body mass index [BMI] 35.0-35.9, adult; Z91.040 Latex allergy status; Z79.84 Long term (current) use of oral hypoglycemic drugs; Z86.0100 Personal history of colon polyps, unspecified; Z86.19 Personal history of other infectious and parasitic diseases; Z12.11 Encounter for screening for malignant neoplasm of colon
CPT/HCPCS: 36430; 74177; 76536; 80048; 80053; 82607; 82728; 82746; 82962; 83010; 83540; 83550; 83615; 83735; 84100; 84484; 85014; 85018; 85025; 85027; 85045; 85240; 85245; 85246; 85247; 85610; 85730; 86850; 86900; 86901; 86920; 88173; 88305; 88342; 93005; 93971; 94660; 99285; J2916; J7183; P9016; Q9967

== ENCOUNTER → 2024-12-06 14:58 | Outpatient (REF) | payer MEDICARE, OTHER, SELFPAY | LOC: RAD 14:58 | PROVIDERS: ATTENDING PHYSICIAN Family Medicine | DX: I82.612 Acute embolism and thrombosis of superficial veins of left upper extremity (principal) | CPT/HCPCS: 93971 ==

== ENCOUNTER 2024-12-15 15:37 | Emergency (ER) | payer MEDICARE, OTHER, SELFPAY ==
[2024-12-15 15:42] VITALS: BP 149/76; BMI 37.2
[2024-12-15 15:45] VITALS: BP 131/77
[2024-12-15 16:00] VITALS: BP 137/67
[2024-12-15 16:15] VITALS: BP 153/69
--- NOTE | 2024-12-15 16:16 | ED.GENMED ---
History of Present Illness
General
Chief Complaint: Allergic Reaction
Source: patient
Exam Limitations: none
Time Seen by Provider: 12/15/24 15:59
Nursing documentation reviewed up to this point in time: agreed with
History of Present Illness
History of Present Illness:
Note:
CHIEF COMPLAINT(S)
Dizziness and lightheadedness leading to near syncope.
HISTORY OF PRESENT ILLNESS
The patient is a 74-year-old female with a history of anemia, who presented with dizziness and lightheadedness, leading to near syncope. She reported feeling like she might pass out. The patient was previously hospitalized in October for several
weeks due to severe anemia, during which she experienced similar symptoms. She described her lightheadedness as not consistently leading to passing out but being significant enough to cause concern. During her previous hospitalization, she received
a blood transfusion and iron infusions because of her anemia. Blood work at that time indicated anemia, but the underlying cause was not identified. The current episode of dizziness prompted her return to the hospital for monitoring and further
evaluation.
PAST MEDICAL AND SURIGICAL HISTORY
Significant for anemia requiring blood transfusion and iron supplementation.
EXTERNAL RECORDS REVIEWED
Reviewed records from the patients previous hospitalization in October, noting a diagnosis of severe anemia and treatments including blood transfusions and iron infusions.
PHYSICAL EXAM
General: Alert, no acute distress.
Skin: Warm, dry.
Head: Normocephalic, atraumatic.
Neck: Supple, trachea midline.
Eyes, Ears, Nose, Mouth, and Throat: Oral mucosa moist.
Cardiovascular: Normal peripheral perfusion, No edema.
Respiratory: Respirations are non-labored.
Gastrointestinal: Abdomen nondistended.
Back: Normal range of motion, Normal alignment.
Musculoskeletal: Normal range of motion, normal strength.
Neurological: Alert and oriented to person, place, time, and situation, No focal neurological deficit observed.
Psychiatric: Cooperative, appropriate mood & affect.
PLAN
The patient will be placed under close monitoring for recurrent symptoms. The healthcare team will conduct further blood tests to evaluate hemoglobin levels and potential causes of anemia. Additionally, the patient will receive supportive care as
needed, with consideration for further transfusions or iron supplementation based on laboratory results and clinical presentation.
DIFFERENTIAL DIAGNOSIS
The Differential Diagnosis includes, in no particular order and is not limited to:
1. Chronic anemia
2. Acute blood loss anemia
3. Iron deficiency anemia
4. Vitamin B12 deficiency
5. Syncope
6. Orthostatic hypotension
7. Arrhythmia
8. Vestibular dysfunction
9. Intracranial process
10. Dehydration
CARE-UPDATE
12/15/24 - :41
Patient remained symptom-free throughout the observation period. No further signs of an allergic reaction noted. Patient stable and cleared for discharge with instructions to monitor for any delayed hypersensitivity reactions and to follow up if
needed.
Disposition:
SUMMARY OF ENCOUNTER
The patient, a 74-year-old female with a history of anemia, presented to the emergency department with dizziness and lightheadedness resulting in near syncope. Similar symptoms were experienced during a previous hospitalization in October for
severe anemia. Currently, her anemia is stable. The episode prompted her visit for monitoring and evaluation. The differential diagnosis considered included an allergic reaction versus syncope. She remained stable throughout her ED course.
DISPOSITION
Discharge
ASSESSMENT
The patient shows suspicion of an allergic reaction versus syncope, with stable anemia conditions.
PLAN
The patient will follow up with primary care and consult with oncology and hematology for further management. Return precautions have been provided to the patient.
PATIENT EDUCATION AND COUNSELING
The patient was advised on the symptoms to monitor and the importance of follow-up with primary care and specialists. She was informed of return precautions should symptoms worsen.
FOLLOW-UP INSTRUCTIONS
The patient was instructed to follow up with her primary care physician, and specialists in oncology and hematology as directed.
MEDICAL DECISION MAKING
- Number and Complexity of Problems Addressed: Chronic conditions affecting care include anemia and potential syncope or allergic reaction.
- Data:
- Category 1: Records from the previous hospitalization in October were reviewed to assess anemia status.
- Category 2: None applicable.
- Category 3: None applicable.
- Risk: Consideration of Admission/Observation: Escalation of care including admission/observation was considered considering the complexity and risk of the patients dizziness and lightheadedness with a background of anemia. However, the patient is
deemed safe for outpatient management with close follow-up due to reassuring work-up and symptom stability.
DIAGNOSIS
- Dizziness and Giddiness (R42)
- Anemia, unspecified (D64.9)
- Syncope and collapse (R55.9)
Past History
Past History
ED Past Medical History: HTN and Other (Von Willebrand's disease.)
ED Past Surgical History: Other (Noncontributory)
Social History
Tobacco: Non-smoker
Alcohol: None
Drug: None
Personal:
Living: with family
Employment: Employed
Family History
Family History: Other (Noncontributory)
Phy Exam
Physical Exam
Physical Exam:
.
Course
Orders/Labs/Results
Orders:
Orders
12/15/24 16:14
IV Insert/Care/Rem.- Treatment PRN
12/15/24 16:15
Electrocardiogram (*1) Stat
Reason for Study: Other
Other Reason for Exam: chest pain
Cardiac Monitoring- Treatment ONCE
EKG- Treatment ONCE
12/15/24 16:30
Complete Blood Count/With Diff Urgent
Comprehensive Metabolic Panel Urgent
Abnormal Lab Results
12/15/24
16:30
RBC 2.77 L 10^6/uL
(4.20-5.40)
Hgb 8.4 L g/dL
(12.0-16.0)
Hct 27.9 L %
(37.0-47.0)
MCV 100.7 H fL
(81.0-99.0)
MCHC 30.1 L g/dL
(33.0-37.0)
RDW 14.7 H %
(11.5-14.5)
Abs Immat Gran (auto) 0.2 H 10^3/uL
(0-0.05)
Absolute Neuts (auto) 7.0 H 10^3/uL
(1.4-6.5)
Immature Gran % 2.6 H %
(0-0.5)
Lymphocytes % 19.2 L %
(20.5-51.1)
Carbon Dioxide 21 L mmol/L
(22-30)
BUN 20 H mg/dl
(7-17)
Glucose 167 H mg/dl
(70-99)
12/15/24 16:30
12/15/24 16:30
Vital Signs
Initial and Last Documented VS:
Initial Vital Signs
Temp Pulse Resp BP Pulse Ox
97.9 F 83 16 149/76 99
12/15/24 15:42 12/15/24 15:42 12/15/24 15:42 12/15/24 15:42 12/15/24 15:42
Last Documented Vital Signs
Temp Pulse Resp BP Pulse Ox
97.9 F 100 21 131/63 99
12/15/24 15:42 12/15/24 17:15 12/15/24 17:15 12/15/24 17:15 12/15/24 16:16
*Pulse Oximetry
SaO2: 99
Oxygen Mode of Delivery: Room air
Patient hypoxic: no
*Critical Care Note
Total Time (30-74mins, 75-104mins- exclusive of procedures): Not Applicable
ED Attending Note
-
Portions of this chart may have been created with voice recognition software.� Occasional wrong word or��sound alike� substitutions may have occurred due to the inherent limitations of voice recognition software.
Discharge Plan
Departure
Patient Disposition: Home (Routine Discharge)
Date of Disposition: 12/15/24
Time of Disposition: 18:01
Patient with high blood pressure during this ER visit?: Yes
Discharge Problem:
Allergic reaction
Instructions: Hives (DC), Adverse Drug Reactions, Adult (DC), BLOOD PRESSURE
Prescriptions:
No Action
ascorbic acid (vitamin C) [Vitamin C] 500 MG tablet
1,000 mg PO DAILY
cholecalciferol (vitamin D3) [Vitamin D3] 400 UNITS tablet
800 units PO QPM
acetaminophen [Tylenol] 325 mg Tablet
650 mg PO Q6HPRN PRN (Reason: mild pain)
metformin 500 mg Tablet
500 mg PO BID
lisinopril 20 mg Tablet
20 mg PO DAILY
therapeutic multivitamin Tablet
1 tab PO DAILY
tranexamic acid 650 mg Tablet
1,300 mg PO TID Qty: 6 0RF
ferrous sulfate 325 mg (65 mg iron) tablet
325 mg PO Q48H Qty: 100 0RF
Referrals:
Twila Varela MD [Family Provider, Family Practice] - Call in 1-3 days for appt
Interventions
Interventions:
*Risk Screen - Suicide Last Done: 12/15/24 15:42
*General Assessment Last Done: 12/15/24 17:18
*Neglect/Abuse Screening Last Done: 12/15/24 15:42
*ED- Fall Risk Assessment Last Done: 12/15/24 15:42
*ED COVID-19 Vaccine History Last Done: 12/15/24 15:42
*ED Influenza Vaccine History Last Done: 12/15/24 15:42
*Nursing Disposition Last Done: 12/15/24 18:33
ED- Cardiac Assessment Last Done: 12/15/24 15:42
ED- Pulmonary Assessment Last Done: 12/15/24 15:42
ED-Skin Assessment Last Done: 12/15/24 15:42
Discharge Date and Time
Discharge Date/Time: 12/15/24 18:34
Print Language: SPANISH
[2024-12-15 16:43] LABS: Hematocrit 27.9 % (37.0-47.0); Hemoglobin 8.4 g/dL (12.0-16.0); Mean Corp Hgb Conc. 30.1 g/dL (33.0-37.0); Mean Corpuscular Volume 100.7 fL (81.0-99.0); Nucleated Red Blood Cells % 0.2 %; Platelet Count 375 10^3/uL (130-400); Red Cell Dist. Width 14.7 % (11.5-14.5)
[2024-12-15 16:47] VITALS: BP 46/15
[2024-12-15 17:02] LABS: ALT (SGPT) 15 U/L (0-35); AST (SGOT) 19 U/L (14-36); Albumin 3.9 g/dl (3.5-5.0); Alkaline Phosphatase 63 U/L (38-126); Blood Urea Nitrogen 20 mg/dl (7-17); Calcium 9.5 mg/dl (8.4-10.2); Carbon Dioxide 21 mmol/L (22-30); Chloride 107 mmol/L (98-107); Estimated Creatinine Clearance 77 ml/min; Glucose 167 mg/dl (70-99); Potassium 3.6 mmol/L (3.5-5.1); Sodium 135 mmol/L (135-145); Total Protein 6.3 g/dl (6.3-8.2); eGFR > 60.00
[2024-12-15 17:15] VITALS: BP 131/63
== END 2024-12-15 18:34 | disposition home or self-care (01) ==
LOC: EMR 15:37
PROVIDERS: EMERGENCY PHYSICIAN Emergency Medicine; FAMILY PHYSICIAN Family Medicine
DX: T78.40XA Allergy, unspecified, initial encounter (principal); Y92.9 Unspecified place or not applicable; D64.9 Anemia, unspecified; D68.00 Von Willebrand disease, unspecified; I10 Essential (primary) hypertension
CPT/HCPCS: 99283; 80053; 85025

== ENCOUNTER 2025-01-04 14:16 | Inpatient (IN) | payer MEDICARE, OTHER, SELFPAY ==
[2025-01-04] VITALS (9 sets, daily range): BP systolic 125–152; BP diastolic 65–86; BMI 37.1; BMI 35.6
--- NOTE | 2025-01-04 11:35 | ED.GENMED ---
History of Present Illness
General
Chief Complaint: Abnormal Lab Value
Time Seen by Provider: 01/04/25 11:14
History of Present Illness
History of Present Illness:
74-year-old female with history of von Willebrand's disease presents to the emergency department for evaluation of recurrent anemia. Outpatient hemoglobin was 6.0. She was admitted to this hospital in late October for a similar issue, at that
time underwent EGD and colonoscopy without evidence for active bleeding. She was given multiple blood transfusions and iron infusions during that hospital stay. She continues to be on oral iron at this time. Does report dark stools secondary to
iron use. Reports exertional shortness of breath and fatigue but denies chest pain. No fevers or night sweats. No vaginal bleeding or gingival bleeding
Past History
Past History
ED Past Medical History: HTN and Other (Von Willebrand's disease.)
ED Past Surgical History: Other (Noncontributory)
Social History
Tobacco: Non-smoker
Alcohol: None
Drug: None
Personal:
Living: with family
Employment: Employed
Family History
Family History: Other (Noncontributory)
Review of Systems
Review of Systems
Allergies reviewed?: Yes
All Other Systems: ROS reviewed and negative except as documented in HPI and ROS
Phy Exam
Physical Exam
Physical Exam:
GEN: Generally pale, overall well-appearing
HEENT: Oral mucosa moist, no scleral icterus
Cardiac: Regular rate and rhythm, no murmurs
Lung: No respiratory distress, no tachypnea, lungs clear to auscultation
MSK: No gross deformity or injuries
Skin: Good color, generally pale, no jaundice
Neuro: AO x3, moves all extremities freely
Psych: Calm, cooperative
Course
Orders/Labs/Results
Orders:
Orders
01/04/25 11:51
Type+Screen Urgent
Complete Blood Count/With Diff Urgent
Comprehensive Metabolic Panel Urgent
Ferritin Urgent
Folate Urgent
Comment: ADD ON
Iron Urgent
Reticulocyte Count Urgent
Comment: ADD ON
TIBC [Total Iron Binding] Urgent
Vitamin B12 Urgent
Comment: ADD ON
01/04/25 13:07
Add On- LAB Urgent
Tests Added?: B12, folate
01/04/25 14:00
Admit/Transfer Patient As Directed
Co-Sign Provider:
Level of Care: Inpatient admission
Assign to:: Telemetry
Physician / Group: mayur noe
Diagnosis: Symptomatic recurrent anemia, history of iron deficiency anemia
Reason for Telemetry: Arrhythmia
Date to Stop Telemetry: 01/07/25
Time to Stop Telemetry: 11:00
Reason for Hospitalization: Symptomatic recurrent anemia, history of iron deficiency anemia
Expected length of stay greater than two midnights?: Yes
ELOS- Estimated Length of Stay in days: 4
I certify the patient meets the requirements for IP care: Yes
Code Status As Directed
Resuscitation Status: Full Code
01/04/25 14:04
PRN Pain Medication Management As Directed
May give lesser potent ordered pain med per pt: Yes
preference::
Protocol:: Medication orders for pain may be administered in a
manner that supports deferring to patient preference
when the pt is:
- Requesting an ordered lesser potent pain medication.
Least to most potent pain medications are defined
as: acetaminophen < NSAID < tramadol < opioids
(morphine, oxycodone, hydromorphone).
- Requesting a lesser dose of the same medication IF
ORDERED.
- Requesting a less intrusive route of administration
if both routes are prescribed by the provider (PO <
IV).
01/04/25 Dinner
1800 calorie (15 carb) Diabetic
At Your Request: Limited Participation
Does patient need a safe tray?: No
01/04/25 15:29
Dextrose 50%-Water [Dextrose 50% Syringe] 12.5 grams IV [id number] PRN
Glucagon [GlucaGen] 1 mg IM PRN PRN
01/04/25 15:29
Activity As Directed
Activity Level: As Tolerated
Bedside Glucose Monitoring As Directed
Frequency: AC&HS
Additional Instructions:: Change to q6h if pt on TPN, tube feeding or not eating
Intake/ Output As Directed
Frequency: Per unit guidelines
Pneumatic Compression Sleeves As Directed
Type: Knee high
Vital Signs As Directed
Frequency: Per unit guidelines
Pt Eval And Treat Routine
Activity Level: As Tolerated
DX Deep Vein Thrombosis Video Routine
01/04/25 16:30
Insulin Aspart Corrective Low [Novolog Flexpen-Low Resistance] See Protocol SC AC
01/04/25 18:00
Cholecalciferol (Vitamin D3) [VITAMIN D3 (cholecalciferol)] 10 mcg PO QPM
01/05/25 06:00
Complete Blood Count/With Diff IN AM
Comprehensive Metabolic Panel IN AM
Glycohemoglobin (HgbA1c) IN AM
01/05/25 08:00
Ascorbic Acid [Vitamin C] 1,000 mg PO DAILY
Lisinopril [Zestril] 20 mg PO DAILY
Multivitamin [Theragran] 1 tablet PO DAILY
01/06/25 06:00
Complete Blood Count/With Diff IN AM
Comprehensive Metabolic Panel IN AM
01/07/25 06:00
Complete Blood Count/With Diff IN AM
Comprehensive Metabolic Panel IN AM
01/07/25 11:00
DC Protocol for Telemetry ONCE
Abnormal Lab Results
01/04/25
11:51
RBC 1.84 L 10^6/uL
(4.20-5.40)
Hgb 5.5 L* g/dL
(12.0-16.0)
Hct 18.8 L* %
(37.0-47.0)
MCV 102.2 H fL
(81.0-99.0)
MCHC 29.3 L g/dL
(33.0-37.0)
RDW 16.1 H %
(11.5-14.5)
Monocytes % 10.0 H %
(1.7-9.3)
Retic Count 7.3 H %
(0.4-2.8)
Chloride 109 H mmol/L
(98-107)
Glucose 100 H mg/dl
(70-99)
% Saturation 13 L %
(20-50)
Total Protein 6.1 L g/dl
(6.3-8.2)
Folate > 20.0 H ng/ml
(2.76-20)
Crossmatch IS Only See Detail
01/04/25 11:51
01/04/25 11:51
Vital Signs
Initial and Last Documented VS:
Initial Vital Signs
Temp Pulse Resp BP Pulse Ox
98.7 F 91 16 152/86 100
01/04/25 11:08 01/04/25 11:08 01/04/25 11:08 01/04/25 11:08 01/04/25 11:08
Last Documented Vital Signs
Temp Pulse Resp BP Pulse Ox
98.9 F 87 18 152/77 100
01/04/25 17:19 01/04/25 17:19 01/04/25 17:19 01/04/25 17:19 01/04/25 17:19
MDM/Problems Addressed
MDM/Problems Addressed:
Unclear etiology to patient's recurrent anemia, does not appear to have any evidence for blood loss at this time although Hemoccult is deferred as she takes oral iron. Due to the severe degree of her anemia we will admit to the hospitalist service
for further management, blood transfusion initiated
*Pulse Oximetry
SaO2: 100
Oxygen Mode of Delivery: Room air
Patient hypoxic: no
*Critical Care Note
Total Time (30-74mins, 75-104mins- exclusive of procedures): Not Applicable
ED Attending Note
-
Portions of this chart may have been created with voice recognition software.� Occasional wrong word or��sound alike� substitutions may have occurred due to the inherent limitations of voice recognition software.
Discharge Plan
Departure
Patient Disposition: Admit
Date of Disposition: 01/04/25
Time of Disposition: 13:08
Admit to: Med/Surg
Presentation/result/management discussed w/ accepting MD/DO: Hospitalist
Discharge Problem:
Symptomatic anemia
Interventions
Interventions:
*Risk Screen - Suicide Last Done: 01/04/25 11:08
*General Assessment Last Done: 01/04/25 11:58
*Neglect/Abuse Screening Last Done: 01/04/25 11:08
*ED- Fall Risk Assessment Last Done: 01/04/25 11:58
*ED COVID-19 Vaccine History Last Done: 01/04/25 16:11
*ED Influenza Vaccine History Last Done: 01/04/25 11:58
*Nursing Disposition Last Done: 01/04/25 15:21
Discharge Date and Time
Discharge Date/Time: 01/04/25 15:22
[2025-01-04 12:25] LABS: ALT (SGPT) 15 U/L (0-35); AST (SGOT) 17 U/L (14-36); Albumin 3.7 g/dl (3.5-5.0); Alkaline Phosphatase 57 U/L (38-126); Blood Urea Nitrogen 16 mg/dl (7-17); Calcium 9.0 mg/dl (8.4-10.2); Carbon Dioxide 23 mmol/L (22-30); Chloride 109 mmol/L (98-107); Estimated Creatinine Clearance 68 ml/min; Glucose 100 mg/dl (70-99); Iron 55 ug/dl (37-170); Potassium 3.9 mmol/L (3.5-5.1); Sodium 135 mmol/L (135-145); Total Protein 6.1 g/dl (6.3-8.2); eGFR > 60.00
[2025-01-04 12:34] LABS: Total Iron Binding Capacity 393 ug/dl (265-497)
[2025-01-04 12:37] LABS: Hematocrit 18.8 % (37.0-47.0); Hemoglobin 5.5 g/dL (12.0-16.0); Mean Corp Hgb Conc. 29.3 g/dL (33.0-37.0); Mean Corpuscular Volume 102.2 fL (81.0-99.0); Nucleated Red Blood Cells % 0 %; Platelet Count 253 10^3/uL (130-400); Red Cell Dist. Width 16.1 % (11.5-14.5)
[2025-01-04 12:59] LABS: Ferritin 13.7 ng/ml (11.1-264.0)
--- NOTE | 2025-01-04 13:42 | HPS.HSE ---
Addendum entered and electronically signed by XAVI Altamirano 01/04/25 15:29:
Anemia on recommendations
Discussed case with Dr. Beckford
Is aware we will monitor for any blood loss
No further workup from GI has had negative EGD [place] and bleeding scan
GI recommended IV iron, PPI, monitor stool
If hemoglobin still low tomorrow oncology recommending follow-up outpatient with more frequent CBCs
Addendum entered and electronically signed by XAVI Altamirano 01/04/25 15:09:
Recurrent anemia
Discussed case with GI Dr. Carrasco recommends if brown stools would transfuse
Given recent negative capsule Endo November
- Would defer any bleeding scan if no bleeding
-Give IV iron and supportive care with PPI
- follow-up with GI as outpatient
Original Note:
Family Physician
-
Family Physician: Twila Varela MD
Chief Complaint
-
Shortness of breath, fatigue
History of Present Illness
74-year-old female complaining of exertional shortness of breath and fatigue. She was found to have hemoglobin of 5.5 in the ER. She has history of recurrent anemia without active bleeding. She denies headache, blurred vision, fever, chills,
chest pain, palpitations, cough, shortness breath, abdominal pain, nausea, vomiting, diarrhea, black or bloody stools. Patient reports that she was seen by Dr. Zepeda on December 15 attempted to have Monoferric IV iron infusion however had
anaphylaxis reaction in office.
Past medical history von Willebrand's disease, iron deficiency anemia, HTN, DM 2, JERAMY, osteoporosis, cardiac murmur patient with recent admission 11/03 - 11/08/2024 due to symptomatic anemia hemoglobin 6.2 found to have iron deficiency received 3
units PRBC and IV iron x 5 doses she underwent EGD and [place] without active bleeding she was followed by hematology and provided humate and TXA prior to her procedures she had outpatient capsule endocapsule study in [place] by her old GI associate,
which was also negative for bleeding
Medical History
Past Medical History
Past Medical History: Reports Other
Additional Past Medical History:
Diabetes Mellitus, Type II
Essential Hypertension
Hyperlipidemia
Cardiac murmur unknown type
Von Willebrand Disease
Osteoarthritis
Obstructive Sleep Apnea
Class II Obesity
Past Surgical History: Reports Other
Additional Past Surgical History:
Left Knee Replacement
Tubal Ligation
[place] Teeth Removal
Social History
Tobacco: Non-smoker
Alcohol: Occasional
Drug: None
Employment: Retired
Family History
Family History: Not pertinent
Allergies / Home Medications
Allergies reflects when Allergies were last updated in [employer].
Home Medications with original date entered in [employer]
Allergy/Medication List:
Allergies
Allergy/AdvReac Type Severity Reaction Status Date / Time
ferric derisomaltose (From Allergy Anaphylaxis Verified 01/04/25 11:11
Monoferric)
latex Allergy rash,rednes Verified 01/04/25 11:08
s
Home Medications
ascorbic acid (vitamin C) 500 mg tablet (Vitamin C) 1,000 mg PO DAILY Supplement 04/10/12
cholecalciferol (vitamin D3) 10 mcg (400 unit) tablet (Vitamin D3) 800 units PO QPM Supplement 04/10/12
metformin 500 mg tablet 500 mg PO BID Gastrointestinal Issue 10/30/24
lisinopril 20 mg tablet 20 mg PO DAILY Blood Pressure 11/02/24
therapeutic multivitamin 1 tab PO DAILY Supplement 11/02/24
ferrous sulfate 325 mg (65 mg iron) tablet 325 mg PO Q48H #100 tabs 11/08/24
Review of Systems
-
History Source: Patient
A 12 point ROS was completed and negative except as noted: Yes
Constitutional: Reports Fatigue; Denies Fever or Chills
EENT: Denies Sore Throat or Runny Nose
Respiratory: Reports Trouble Breathing (Dyspnea on exertion); Denies Cough
Cardiac: Denies Chest Pain, Diaphoresis, Palpitations or Syncope
Abdomen/GI: Denies Abdominal Pain, Nausea, Vomiting, Diarrhea or Constipated
: Reports Other (Denies vaginal bleeding); Denies Dysuria, Frequency, Flank Pain, Incontinence or Difficulty Voiding
Musculoskeletal: Denies Joint Pain or Edema
Skin: Denies Itching or Rash
Neurological: Reports Dizzy (With standing); Denies Headache, Weakness or Numbness
Endocrine: Reports No Symptoms
Hematologic/Lymphatic: Reports No Symptoms
Psych: Reports Calm
Physical Exam
Vital Signs
Vital Signs
Temp Pulse Resp BP Pulse Ox
98.7 F 86 16 152/86 97
01/04/25 11:08 01/04/25 12:00 01/04/25 12:00 01/04/25 11:08 01/04/25 12:00
Physical Exam
General: Comfortable, Conversant and Obese
HEENT: NormoCephalic, Anicteric, Moist mucous membranes, PERRLA, No Ptosis and Other (Pale conjunctiva)
Respiratory: Clear; No Wheezes, Rales or Rhonchi
Cardiac: S1/S2 and Murmur (3/6 systolic murmur); No Rub, Gallop or Peripheral Edema
GI: Soft, Non Tender, Non Distended, Normal Bowel Sounds and No Hepatosplenomegaly
Genito-urinary: Deferred by me
Musculoskeletal: No Clubbing, No Cyanosis and No Edema
Skin: Warm and Dry; No Rash
Neuro: AO x 3, No Motor Deficits, Nonfocal/grossly intact, Cranial Nerves Intact and No Sensory Deficits; No Slurred Speech, Facial Droop, Tremors or Sedated
Psych: Calm
Laboratory Results
-
01/04/25 11:51
01/04/25 11:51
Laboratory Results
Total Bilirubin 0.4 mg/dl (0.2-1.3) 01/04/25 11:51
AST 17 U/L (14-36) 01/04/25 11:51
ALT 15 U/L (0-35) 01/04/25 11:51
Alkaline Phosphatase 57 U/L (38-126) 01/04/25 11:51
Data Reviewed
-
Lab Data: Labs Reviewed by me
Impression/Plan
-
Impression/plan:
Admit to telemetry
#Recurrent anemia of unclear etiology
#History of iron deficiency anemia�recent IV iron x 5 doses October 2024
No reported active bleeding rectal, vaginal, urine
Hgb 5.5, MCV 102.2
- Type and screen
- Obtain blood consent
- Transfused 2 units PRBC
- Percent sat 13, ferritin 13.7
Check B12 folate
- Follow CBC, CMP
- Consult GI regarding any possible further studies ? Bleeding scan
- Consult hematology Dr. Beckford aware
#History of von Willebrand's disease
Follows with hematology receives humate and TXA prior to procedures
#History of cardiac murmur
#HTN
BP 152/86
Continue lisinopril 20 mg daily with hold parameters
#DM 2
Check HgbA1c
Continue metformin 500 mg twice daily
#JERAMY
#Osteoarthritis
-Continue vitamin D3
DVT prophylaxis
SCDs
Full code
[2025-01-04 14:37] LABS: Folate > 20.0 ng/ml (2.76-20); Vitamin B12 421 pg/ml (239-931)
--- NOTE | 2025-01-04 14:41 | W.PN.UPDATE ---
Update Note
Progress Note Update
This is an addendum to H&P written by AUDIOMETRIST Gail Rodriguez
I saw and examined the patient.
The AUDIOMETRIST's note was reviewed and I agree with the note.
Comment:
Ms. Dionne Galvez is a 74 yo woman with hx von Willebrand disease, essential HTN, admission 10/2024 for symptomatic iron deficiency anemia s/p EGD/[place] without source of bleeding followed up by outpatient capsule endoscopy without source of bleeding
sent to the ER for low outpatient Hg. Patient has felt more fatigued and SOB with exertion recently.
Triage VS: T 98.7, P 91, RR 16, BP 152/86, SpO2 100%
On exam patient is AAO x 3, pale conjunctiva; CV: S1, S2, RRR; chest clear, no LE swelling.
LABS: WBC 4.8, Hg 5.5, MCV 102.2, PLT 253, Na 135, K+ 3.9, Cl 109, Cr 0.8, Glucose 100, iron % sat 13, ferritin 13.7
vitamin B12 421, folate > 20
Symptomatic Anemia
Iron Deficiency anemia
-Hg dropped from 8.4 12/15/24 to 5.5 today. Patient denies black or bloody stools. No recent bleeding episodes. MCV > 100; vitamin B12 WNL. Iron % sat low
-discussing case with Hematology and GI
-admit to telemetry
-2 units PRBC ordered
-trend H/H
-follow up further recommendations from specialists
-clears, NPO after MN
Essential HTN
-INTERPRETER DEAF Lisinopril
DM
-hold Metformin
-ISS low
DVT PPx SCD
FULL CODE
76 minutes spent on patient care
--- NOTE | 2025-01-04 15:08 | EDCM ---
Reviewed chart and met with pt bedside in ED. Lives with her in one story home, [address]. Bath has walk in shower and grab bars.
Independent in ADLs, personal care and ambulation at baseline. Does not use assistive devices, does have walker and cane in home.
Has CPAP and glucometer. Also has shower chair but is not currently using it.
Confirms prescription coverage.
will transport home at time of discharge.
No hx VN or SNF.
PCP: Twila Varela
[facility]
Anticipate discharge home, CM will continue to follow for all discharge planning needs.
[2025-01-04] MEDS: FERRLECIT 110 MG IV (15:59)
[2025-01-04 16:19] LABS: Glucose - Point of Care 118 mg/dl (70-99)
[2025-01-04 16:36] LABS: Reticulocyte Count 7.3 % (0.4-2.8)
--- NOTE | 2025-01-04 17:06 | PTCARENOTE ---
pt presented from ED via stretcher. pt is AAO*3, vss, room air. pt c/o SOB with exertion denies any pain at this time. pt finished iron infusion at this time. started on 1sst units of PRBC's at this time.
[2025-01-04] MEDS: VITAMIN D3 (cholecalciferol) 10 MCG PO (17:12)
[2025-01-04 21:22] LABS: Glucose - Point of Care 138 mg/dl (70-99)
[2025-01-05 01:10] VITALS: BP 127/73
[2025-01-05 01:11] VITALS: BP 127/73
[2025-01-05 03:53] VITALS: BP 126/71
[2025-01-05 05:16] LABS: ALT (SGPT) 16 U/L (0-35); AST (SGOT) 17 U/L (14-36); Albumin 3.9 g/dl (3.5-5.0); Alkaline Phosphatase 54 U/L (38-126); Blood Urea Nitrogen 15 mg/dl (7-17); Calcium 9.4 mg/dl (8.4-10.2); Carbon Dioxide 22 mmol/L (22-30); Chloride 111 mmol/L (98-107); Estimated Creatinine Clearance 76 ml/min; Glucose 104 mg/dl (70-99); Potassium 4.3 mmol/L (3.5-5.1); Sodium 140 mmol/L (135-145); Total Protein 6.2 g/dl (6.3-8.2); eGFR > 60.00
[2025-01-05 05:33] LABS: Hematocrit 25.1 % (37.0-47.0); Hemoglobin 7.8 g/dL (12.0-16.0); Mean Corp Hgb Conc. 31.1 g/dL (33.0-37.0); Mean Corpuscular Volume 98.0 fL (81.0-99.0); Nucleated Red Blood Cells % 0.3 %; Platelet Count 269 10^3/uL (130-400); Red Cell Dist. Width 17.4 % (11.5-14.5)
[2025-01-05 07:17] VITALS: BP 131/65
[2025-01-05 08:16] LABS: Glucose - Point of Care 123 mg/dl (70-99)
[2025-01-05] MEDS: VITAMIN C 1000 MG PO (08:16)
[2025-01-05] MEDS: ZESTRIL 20 MG PO (08:16)
[2025-01-05] MEDS: FLUSH (NSS) 1 FLUSH IV ×2 (08:17→13:39)
[2025-01-05] MEDS: THERAGRAN 1 TABLET PO (08:17)
[2025-01-05] MEDS: PROTONIX IV 40 MG IV (08:17)
[2025-01-05] MEDS: NSS (PRESERVATIVE FREE) 10 ML IV (08:17)
[2025-01-05 08:26] LABS: Glycohemoglobin (HgbA1c) 4.9 % (4.0-5.9)
[2025-01-05 09:51] VITALS: BP 119/64; PULSE 77
[2025-01-05 12:47] LABS: Hematocrit 25.9 % (37.0-47.0); Hemoglobin 8.1 g/dL (12.0-16.0)
[2025-01-05 13:00] LABS: Glucose - Point of Care 128 mg/dl (70-99)
[2025-01-05] MEDS: FERRLECIT 110 MG IV (13:39)
--- NOTE | 2025-01-05 14:04 | W.DCSUMMARY ---
Discharge Summary
Discharge Data
Date of Admission: 01/04/25
Date of Discharge: 01/05/25
Total time spent discharging patient (in min): 53
-
Pending Results: No
Hospital Course
Ms. Galvez is a 74-year-old female with medical history of von Willebrand disease disease (type 2a or 3), anemia requiring transfusions, hypertension, cardiac murmur (unknown type), and lrs-[id number] diabetes mellitus who presented with
fatigue and shortness of breath. She was found to have a hemoglobin of 5.5. She follows with hematology as an outpatient due to anemia requiring occasional transfusions. She had blood work to monitor hemoglobin levels which resulted with a
hemoglobin of 6.0, for which she was contacted and instructed to go to the emergency department. She was transfused 2 units PRBCs in the ED and admitted for further evaluation and management. She has had a thorough and unremarkable GI workup for
possible sources of bleeding including upper and lower endoscopies (inpatient during recent admission October 2024) and a capsule endoscopy (done outpatient). She does have a family history of acute lymphocytic leukemia in her mother, which she
has not yet discussed with her small products i assembler. Her presenting symptoms resolved after transfusion of 2 units PRBCs. Her hemoglobin responded to 8.1. She has remained hemodynamically stable. She will be discharged to home with instructions to
follow-up closely with hematology for ongoing management including blood work to monitor her hemoglobin. She was also instructed to follow-up with her family mediator for further evaluation of her murmur including an updated echocardiogram.
General: No Apparent Distress, Comfortable and Conversant
HEENT: NormoCephalic, Moist mucous membranes, Atraumatic
Respiratory: Clear and Non Labored Respirations
Cardiac: Regular rhythm, heart rate around 80, 2/6 systolic murmur
GI: Soft, Non Tender, Non Distended and Normal Bowel Sounds
Musculoskeletal: No Edema, no deformity
: NO Smith
Neuro: Awake, Alert, Nonfocal/grossly intact
Psych: Calm and Intact Judgment/Insight
Discharge Plan
-
Patient Disposition: Home (Routine Discharge)
Discharge Diagnosis/Procedures: Anemia requiring transfusion
Activity Restrictions/Additional Instructions:
You were admitted for treatment of symptomatic anemia. You are presenting with weakness and fatigue more very likely related to your low hemoglobin of 5.5. You were transfused 2 units of packed red blood cells with improvement in your hemoglobin
to 7.8. You have had an extensive prior workup for causes of your anemia with no clear causes found. No obvious sources of GI bleeding on endoscopy. You do have good follow-up with hematology in the outpatient setting. You have previously been
found to have von Willebrand disease which can lead to easy bleeding. Considering your personal history of von Willebrand disease and your family history of ALL, you should continue to follow-up with hematology closely for frequent blood work to
monitor your hemoglobin levels. You can be transfused as needed preferably in the outpatient setting in order to avoid repeated hospitalizations. You should also follow-up with a family mediator for ongoing monitoring of your heart murmur including
repeat echocardiogram.
Referrals:
Twila Varela MD [Family Provider, [facility]]
Prescriptions:
New
pantoprazole [Protonix] 40 mg tablet,delayed release (DR/EC)
40 mg PO DAILY Qty: 30 0RF
Continued
ascorbic acid (vitamin C) [Vitamin C] 500 MG tablet
1,000 mg PO DAILY
cholecalciferol (vitamin D3) [Vitamin D3] 400 UNITS tablet
800 units PO QPM
metformin 500 mg Tablet
500 mg PO BID
lisinopril 20 mg Tablet
20 mg PO DAILY
therapeutic multivitamin Tablet
1 tab PO DAILY
ferrous sulfate 325 mg (65 mg iron) tablet
325 mg PO Q48H
Discharge Orders:
Discharge Patient (As Directed); Ordered 01/05/25
Ordered By: Jono Duran
Discharge Date and Time
Print Language: YORUBA
--- NOTE | 2025-01-05 16:23 | CM ---
MD entered order for discharge.
Spoke with pt in room . She said she was ready for discharge . Her Brian will drive her home.
Offered VN she declined.
PLAN Home no needs
== END 2025-01-05 15:45 | disposition home or self-care (01) | DRG 812 ==
LOC: 4 EAST ACU 14:16
PROVIDERS: Clinical Nurse Specialist Family Health; Physician Assistant; ADMITTING PHYSICIAN Student in an Organized Health Care Education/Training Program; ATTENDING PHYSICIAN Internal Medicine; EMERGENCY PHYSICIAN Emergency Medicine; FAMILY PHYSICIAN Family Medicine
PROC: 30233N1 Transfusion of Nonautologous Red Blood Cells into Peripheral Vein, Percutaneous Approach (ICD-10-PCS; 2025-01-04)
DX: D64.9 Anemia, unspecified (principal); D68.00 Von Willebrand disease, unspecified; D50.9 Iron deficiency anemia, unspecified; E11.9 Type 2 diabetes mellitus without complications; E66.812 Obesity, class 2; E78.5 Hyperlipidemia, unspecified; M81.0 Age-related osteoporosis without current pathological fracture; I10 Essential (primary) hypertension; G47.33 Obstructive sleep apnea (adult) (pediatric); Z68.35 Body mass index [BMI] 35.0-35.9, adult; Z79.84 Long term (current) use of oral hypoglycemic drugs; Z79.899 Other long term (current) drug therapy; Z80.6 Family history of leukemia
CPT/HCPCS: 80053; 82607; 82728; 82746; 82962; 83036; 83540; 83550; 85014; 85018; 85025; 85045; 86850; 86900; 86901; 86920; 97162; 99284; J2916; P9016

== ENCOUNTER 2025-01-09 12:18 | Inpatient (IN) | payer MEDICARE, OTHER, SELFPAY ==
[2025-01-09] VITALS (18 sets, daily range): BP systolic 99–124; BP diastolic 56–104; BMI 34.7
[2025-01-09 10:15] LABS: ALT (SGPT) 14 U/L (0-35); AST (SGOT) 15 U/L (14-36); Albumin 3.8 g/dl (3.5-5.0); Alkaline Phosphatase 54 U/L (38-126); Blood Urea Nitrogen 21 mg/dl (7-17); Calcium 9.1 mg/dl (8.4-10.2); Carbon Dioxide 24 mmol/L (22-30); Chloride 107 mmol/L (98-107); Estimated Creatinine Clearance 76 ml/min; Glucose 127 mg/dl (70-99); Potassium 4.2 mmol/L (3.5-5.1); Sodium 136 mmol/L (135-145); Total Protein 5.9 g/dl (6.3-8.2); eGFR > 60.00
[2025-01-09 10:16] LABS: INR 1.01; PT 13.6 Sec (11.4-14.6)
[2025-01-09 10:17] LABS: APTT 39.0 Sec (23.4-35.0)
[2025-01-09 10:22] LABS: Hematocrit 20.2 % (37.0-47.0); Hemoglobin 6.0 g/dL (12.0-16.0); Mean Corp Hgb Conc. 29.7 g/dL (33.0-37.0); Mean Corpuscular Volume 101.0 fL (81.0-99.0); Nucleated Red Blood Cells % 0 %; Platelet Count 268 10^3/uL (130-400); Red Cell Dist. Width 18.4 % (11.5-14.5)
--- NOTE | 2025-01-09 10:47 | ED.GENMED ---
History of Present Illness
General
Chief Complaint: Weakness
Source: patient, records, family and previous hospital records
Exam Limitations: none
Time Seen by Provider: 01/09/25 09:38
History of Present Illness
History of Present Illness:
74-year-old female von Willebrand's disease followed Dr. Beckford recurrent GI bleeding microcytic anemia, no definitive source by report, followed by outside GI also local GI several admissions to [place] she has gotten transfused and discharged
discharge a few days ago today she feels fatigued had some loose stool mixed with blood dizzy no syncope gets very winded with any activity looks pale daughter at bedside who is an RN
Past History
Past History
ED Past Medical History: HTN and Other (Von Willebrand's disease.)
ED Past Surgical History: Other (Noncontributory)
Social History
Tobacco: Non-smoker
Alcohol: None
Drug: None
Personal:
Living: with family
Employment: Employed
Family History
Family History: Other (Noncontributory)
Phy Exam
Physical Exam
Physical Exam:
Physical Exam
General: no apparent distress, not acutely ill
Neck: Looks pale
Heart: Regular
Lungs: no acute respiratory distress. clear bilaterally
Rectal, dark maroon heme positive
Neuro: alert and oriented. no focal neurological deficits
Skin: no rash
Psychiatric: well kept. interactive and cooperative
Extremities: no edema.
Course
Orders/Labs/Results
Orders:
Orders
01/09/25 09:54
Cardiac Monitoring- Treatment ONCE
IV Insert/Care/Rem.- Treatment PRN
Pulse Ox/spot Check [RESP] Urgent
Quantity: 1
Special Instructions: ON ROOM AIR
01/09/25 09:56
Complete Blood Count/With Diff Urgent
Comprehensive Metabolic Panel Urgent
PTT Urgent
Prothrombin Time Urgent
01/09/25 09:57
Type+Screen Urgent
01/09/25 10:40
Blood Bank Products [* Blood Bank Products] Urgent
Blood Bank Products: *Packed RBC Leuko (PRBC's
Quantity: 2
Transfuse Today: Yes
Reason: Anemia
01/09/25 10:51
ONCOLOGY CONSULT Routine
Consulting Provider: Kristin Rutherford
Was physician already notified: Yes
01/09/25 10:52
Factor VIII,Antihemoph/Von [place] [Humate-P (Factor VIII/Von Willebrand)] 4,600 unit Syringe [Syringe-Pump] 0 ml IV ONCE
01/09/25 10:53
GASTROINTESTINAL CONSULT Urgent
Consulting Provider: Sandy Farfan
Was physician already notified: Yes
01/09/25 10:54
Electrocardiogram (*1) Urgent
Reason for Study: Shortness of Breath
EKG- Treatment ONCE
Abnormal Lab Results
01/09/25
09:56
RBC 2.00 L 10^6/uL
(4.20-5.40)
Hgb 6.0 L* D g/dL
(12.0-16.0)
Hct 20.2 L* %
(37.0-47.0)
MCV 101.0 H fL
(81.0-99.0)
MCHC 29.7 L g/dL
(33.0-37.0)
RDW 18.4 H %
(11.5-14.5)
APTT 39.0 H Sec
(23.4-35.0)
BUN 21 H mg/dl
(7-17)
Glucose 127 H mg/dl
(70-99)
Total Protein 5.9 L g/dl
(6.3-8.2)
01/09/25 09:56
01/09/25 09:56
Vital Signs
Initial and Last Documented VS:
Initial Vital Signs
Temp Pulse Resp Pulse Ox
96.8 F L 90 18 100
01/09/25 09:38 01/09/25 09:38 01/09/25 09:38 01/09/25 09:38
Last Documented Vital Signs
Temp Pulse Resp Pulse Ox
96.8 F L 90 18 100
01/09/25 09:38 01/09/25 09:38 01/09/25 09:38 01/09/25 10:48
MDM/Problems Addressed
Differential Diagnosis Includes:
GI bleeding anemia doubt ACS or PE
MDM/Problems Addressed:
Anemia weakness
Chronic conditions affecting care:
Anemia von Willebrand
Acute Exacerbation and/or Progression of Chronic Illness:
Anemia von Willebrand
*Pulse Oximetry
SaO2: 100
Oxygen Mode of Delivery: Room air
Patient hypoxic: no
*EKG
Interpreted by ED Provider?: Yes
Interpretation: normal
Comparison EKG: no comparison EKG present
Heart Rate: 78
Rate: normal
Rhythm: sinus
Ischemia: no ischemia
*[place] Interpretation
Rate: normal
Interpretation: normal
Heart Rate: 78
Rhythm: sinus
*Critical Care Note
Total Time (30-74mins, 75-104mins- exclusive of procedures): 32
Data Reviewed
Review of Other/Old Records Reveals: Labs, Records and Discharge Summary
Source: patient and family
Update Note
Update Note:
Update acute on chronic anemia, now with GI bleeding von Willebrand's reviewed with hematology and GI hospitalist will admit transfuse give Humate-P
ED Attending Note
-
Portions of this chart may have been created with voice recognition software.� Occasional wrong word or��sound alike� substitutions may have occurred due to the inherent limitations of voice recognition software.
Discharge Plan
Departure
Patient Disposition: Admit
Date of Disposition: 01/09/25
Time of Disposition: 11:03
Admit to: Telemetry
Presentation/result/management discussed w/ accepting MD/DO: Hospitalist
Patient with high blood pressure during this ER visit?: No
Condition: Fair
Covid-19: Not Applicable
Discharge Problem:
Von Willebrand disease, Signs and symptoms of anemia
Prescriptions:
No Action
ascorbic acid (vitamin C) [Vitamin C] 500 MG tablet
1,000 mg PO DAILY
cholecalciferol (vitamin D3) [Vitamin D3] 400 UNITS tablet
800 units PO QPM
metformin 500 mg Tablet
500 mg PO BID
lisinopril 20 mg Tablet
20 mg PO DAILY
therapeutic multivitamin Tablet
1 tab PO DAILY
ferrous sulfate 325 mg (65 mg iron) tablet
325 mg PO Q48H
pantoprazole [Protonix] 40 mg tablet,delayed release (DR/EC)
40 mg PO DAILY Qty: 30 0RF
Referrals:
Twila Varela MD [Family Provider, Family Practice]
Interventions
Interventions:
*Risk Screen - Suicide Last Done: 01/09/25 09:38
*General Assessment Last Done: 01/09/25 09:38
*Neglect/Abuse Screening Last Done: 01/09/25 09:38
ED- Cardiac Assessment Last Done: 01/09/25 10:00
ED- Neurological Assessment Last Done: 01/09/25 10:00
ED- Pulmonary Assessment Last Done: 01/09/25 10:00
Discharge Date and Time
Print Language: EGYPTIAN
--- NOTE | 2025-01-09 10:50 | CON.GI ---
Addendum entered and electronically signed by Sandy Farfan MD 01/09/25 12:26:
I saw and examined the patient.
The [employer]'s note was reviewed and I agree with the note.
Comment: This is a 74-year-old female with past medical history of iron deficiency anemia, GI bleed with acute blood loss anemia, von Willebrand's disease known to Dr. Beckford and rest of the medical history as listed below who had an admission in
October for symptomatic anemia and at that time received blood transfusion and iron infusion and had a colonoscopy and an endoscopy which revealed colon polyps and 1 polyp was tubular adenoma, hemorrhoids and diverticulosis. Endoscopy revealed
duodenitis, gastritis and gastric polyps which were benign fundic gland polyps and gastric biopsies were negative for H. pylori. She then followed up with her outpatient GI Dr. Baer and had a capsule endoscopy which she says was unremarkable.
Daughter is at the bedside who is also helping with the history. She also recently was admitted on 01/04/2025 with severe symptomatic anemia with a hemoglobin of 5.5 and had blood transfusion and now presents again with severe symptomatic anemia
with hemoglobin of 6. She says that she did notice hard bowel movement on Wednesday and had red blood in her stool after that and intermittently has noted black stools sent October. She was also started on oral iron which she takes every other
day since October. She has also received iron infusions with her clinical care coordinator. She also since October had been started on Protonix which had been giving her diarrhea intermittently. She also received Humate and TXA for von Willebrand disease.
She currently denies any abdominal pain. No hematemesis.
Assessment and plan: Severe recurrent symptomatic anemia from acute blood loss anemia and also chronic GI blood loss and as described above endoscopy and colonoscopy in October and subsequent capsule endoscopy no obvious source of bleeding was
identified but she may have underlying small bowel angioectasias that is causing the blood loss, but the blood in her stool on Wednesday could be related to hemorrhoids and or diverticulosis, the bleeding is exacerbated with her underlying von
Willebrand disease. She was diagnosed with von Willebrand's quite a few years ago but has been having recurrent anemia since October. She also has a heart murmur and scheduled for an echocardiogram may need to rule out causing small bowel
angioectasias. If she does have further brisk bleeding will proceed with a CT angiogram to be able to localize the bleeding versus bleeding scan and based on that will need repeat endoscopic workup. May need upper and lower double-balloon
enteroscopy also if she has recurrent bleeding. She had diarrhea with Protonix will switch her to Pepcid. She also received Humate and TXA
Original Note:
Consultation
-
Date/Time Consultation Requested: 01/09/25 1043
Date/Time Consultation Performed: 01/09/25 1100
Requesting Provider: Rashad Rosenbaum DO
Performing Provider: XAVI Smith, Sandy Farfan MD
Reason for Consultation: anemia
Medical History
Chief Complaint / HPI
Chief Complaint: weakness
History of Present Illness:
Pt is a 74yo with hx von willebrand's disease, meningoma, NIDDM- pre DM, HTN, sleep apnea, thyroid nodule with recent admission in October with normocytic heme neg anemia with brown stool during admission. She reports some black dark stool prior
to that admission. She received 3 units PRBC's and IV iron for 5 doses with completion of EGD and colon without active bleeding. She was also followed by hematology with Humate and TXA given prior to procedure. Her hbg was 9.1 discharge and she
was recommended follow up with know GI Dr. Baer for capsule endoscopy which was completed and noted normal per patient since discharge. She had return to ER in November for near syncope vs allergic reaction with hbg 8.4. She then returned
01/04- 01/05 with hbg 5.5 with further transfusion and total on 5 units PRBC since October. She had hbg 01/05 noted 8.1 and now returns 4 days later with symptomatic anemia and hbg 6. Pt states long hx von Willebrand's but anemia issues started
in October 2024.
Pt does report recent difficulty with hard stool which is not typical problem and noted red blood with about 1 tsp on blood. She also report dark stool with oral iron use and some diarrhea since starting Protonix and some dizziness and
shortness of breath. She otherwise denies odynophagia, dysphagia, GERD, nausea, vomiting, or abdominal pain. Some bruising with IV's but denies falls, vaginal or urinary bleeding. She was noted with dark red stool in ER.
2018 colonoscopy -- removal of 2.5cm sessile serrated polyp with placement of 5 clips and tattooed at site(no path reviewed). Repeat colonoscopy was recommended 6-12 months. She did have repeat
2020 colonoscopy --with report not reviewed and due again soon for repeat testing with Dr. Baer.
EGD 11/06/24- Ahmad - Normal esophagus.- Gastritis, characterized by erythema. Biopsied.- A single gastric polyp. Resected and retrieved.- Duodenitis Biopsied.
colonoscopy 11/08/24- Do 4 mm polyp was found in the cecum. The polyp was sessile. The polyp was removed with a cold biopsy forceps. Resection was complete, and retrieval was complete.
Internal hemorrhoids were found during retroflexion. The hemorrhoids were medium-sized. Multiple diverticula were found in the descending colon and sigmoid colon.
The exam was otherwise without abnormality. A 5 mm polyp was found in the sigmoid colon. The polyp was sessile. The polyp was removed with a jumbo cold forceps.
Resection and retrieval were complete Old tattoo in ascending colon
- recent capsule completed with Dr. Baer -- results not reviewed
Past Medical History
Past Medical History: Cancer (meningioma), HTN, NIDDM (pre DM) and Other (von Willebrands disease, anemia since october, obesity, low vitamin D level, lyme disease, osteoarthritis , sleep apnea, thyroid nodule )
Past Surgical History: Appendectomy
Social History
Tobacco: Non-Smoker
Alcohol: None (rare )
Drug: None
Personal:
Living: With Family
Employment: Retired
Family History
Family History: Other (no family hx bleeding disorder or GI issues )
Allergies / Home Medications
Allergy/AdvReac Type Severity Reaction Status Date / Time
ferric derisomaltose (From Allergy Anaphylaxis Verified 11/20/25 11:11
Monoferric)
latex Allergy rash,rednes Verified 01/04/25 11:08
s
�Medication �Instructions �Recorded
ascorbic acid (vitamin C) 500 mg 1,000 mg PO DAILY Supplement 04/10/12
tablet (Vitamin C)
cholecalciferol (vitamin D3) 10 800 units PO QPM Supplement 04/10/12
mcg (400 unit) tablet (Vitamin D3)
metformin 500 mg tablet 500 mg PO BID Gastrointestinal 10/30/24
Issue
lisinopril 20 mg tablet 20 mg PO DAILY Blood Pressure 11/02/24
therapeutic multivitamin 1 tab PO DAILY Supplement 11/02/24
ferrous sulfate 325 mg (65 mg 325 mg PO Q48H Supplement 01/05/25
iron) tablet
pantoprazole 40 mg tablet,delayed 40 mg PO DAILY #30 tabs 01/05/25
release (Protonix)
Review of Systems
-
History Source: Patient and Family
Constitutional: Reports Fatigue
EENT: Reports No Symptoms
Respiratory: Reports Trouble Breathing (with hbg drops )
Abdomen/GI: Reports Diarrhea, Constipated, Bloody Stools (recent red blood with hard stool) and Black Stools (dark stool with iron )
: Reports No Symptoms
Musculoskeletal: Reports No Symptoms
Skin: Reports No Symptoms
Neurological: Reports Dizzy and Weakness
Endocrine: Reports No Symptoms
Hematologic/Lymphatic: Reports Bleeding
Vital Signs
Temp Pulse Resp Pulse Ox
96.8 F L 90 18 100
01/09/25 09:38 01/09/25 09:38 01/09/25 09:38 01/09/25 10:48
Physical Exam
Exam
General: Well Developed, Well Nourished and No Apparent Distress
HEENT: Normocephalic and Anicteric
Respiratory: Clear
Cardiac: Regular Rhythm and Murmur
GI: Soft, Non Tender and Non Distended
Musculoskeletal: No Clubbing and No Cyanosis
Skin: Warm and Dry
Neuro: Awake, Alert and AO x 3
Psych: Calm
Results
WBC 5.9 10^3/uL (4.8-10.8) 01/09/25 09:56
Hgb 6.0 g/dL (12.0-16.0) L* D 01/09/25 09:56
Hct 20.2 % (37.0-47.0) L* 01/09/25 09:56
MCV 101.0 fL (81.0-99.0) H 01/09/25 09:56
Plt Count 268 10^3/uL (130-400) 01/09/25 09:56
Absolute Neuts (auto) 4.0 10^3/uL (1.4-6.5) 01/09/25 09:56
PT 13.6 Sec (11.4-14.6) 01/09/25 09:56
INR 1.01 01/09/25 09:56
APTT 39.0 Sec (23.4-35.0) H 01/09/25 09:56
Sodium 136 mmol/L (135-145) 01/09/25 09:56
Potassium 4.2 mmol/L (3.5-5.1) 01/09/25 09:56
Chloride 107 mmol/L (98-107) 01/09/25 09:56
Carbon Dioxide 24 mmol/L (22-30) 01/09/25 09:56
BUN 21 mg/dl (7-17) H 01/09/25 09:56
Creatinine 0.7 mg/dL (0.6-1.0) 01/09/25 09:56
Calcium 9.1 mg/dl (8.4-10.2) 01/09/25 09:56
Total Bilirubin 0.2 mg/dl (0.2-1.3) 01/09/25 09:56
AST 15 U/L (14-36) 01/09/25 09:56
ALT 14 U/L (0-35) 01/09/25 09:56
Alkaline Phosphatase 54 U/L (38-126) 01/09/25 09:56
Diagnostic Image Results:
11/05/24 CT Abd/pelvis W Iv Cont
1. No significant acute abnormality identified in the abdomen or pelvis, as described above.
2018 colonoscopy -- removal of 2.5cm sessile serrated polyp with placement of 5 clips and tattooed at site(no path reviewed). Repeat colonoscopy was recommended 6-12 months. She did have repeat
2020 colonoscopy --with report not reviewed and due again soon for repeat testing with Dr. Baer.
EGD 11/06/24- Ahmad - Normal esophagus.- Gastritis, characterized by erythema. Biopsied.- A single gastric polyp. Resected and retrieved.- Duodenitis Biopsied.
colonoscopy 11/08/24- Do 4 mm polyp was found in the cecum. The polyp was sessile. The polyp was removed with a cold biopsy forceps. Resection was complete, and retrieval was complete.
Internal hemorrhoids were found during retroflexion. The hemorrhoids were medium-sized. Multiple diverticula were found in the descending colon and sigmoid colon.
The exam was otherwise without abnormality. A 5 mm polyp was found in the sigmoid colon. The polyp was sessile. The polyp was removed with a jumbo cold forceps.
Resection and retrieval were complete Old tattoo in ascending colon
- recent capsule completed with Dr. Baer -- results not reviewed
Assessment / Plan
-
Pt is a 74yo with hx von willebrand's disease, meningoma, NIDDM- pre DM, HTN, sleep apnea, thyroid nodule with recent admission in October with normocytic heme neg anemia with brown stool during admission. She reports some black dark stool prior
to that admission. She received 3 units PRBC's and IV iron for 5 doses with completion of EGD and colon without active bleeding. She was also followed by hematology with Humate and TXA given prior to procedure. Her hbg was 9.1 discharge and she
was recommended follow up with know GI Dr. Baer for capsule endoscopy which was completed and noted normal per patient since discharge. She had return to ER in November for near syncope vs allergic reaction with hbg 8.4. She then returned
01/04- 01/05 with hbg 5.5 with further transfusion and total on 5 units PRBC since October. She had hbg 01/05 noted 8.1 and now returns 4 days later with symptomatic anemia and hbg 6. Pt states long hx von Willebrand's but anemia issues started
in October 2024. Pt does report recent difficulty with hard stool which is not typical problem and noted red blood with about 1 tsp on blood. She also report dark stool with oral iron use and some diarrhea since starting Protonix and some
dizziness and shortness of breath. . Some bruising with IV's but denies falls, vaginal or urinary bleeding. She was noted with dark red stool in ER.
2018 colonoscopy -- removal of 2.5cm sessile serrated polyp with placement of 5 clips and tattooed at site(no path reviewed). Repeat colonoscopy was recommended 6-12 months. She did have repeat
2020 colonoscopy --with report not reviewed and due again soon for repeat testing with Dr. Baer.
EGD 11/06/24- Ahmad - Normal esophagus.- Gastritis, characterized by erythema. Biopsied.- A single gastric polyp. Resected and retrieved.- Duodenitis Biopsied.
colonoscopy 11/08/24- Do 4 mm polyp was found in the cecum. The polyp was sessile. The polyp was removed with a cold biopsy forceps. Resection was complete, and retrieval was complete.
Internal hemorrhoids were found during retroflexion. The hemorrhoids were medium-sized. Multiple diverticula were found in the descending colon and sigmoid colon.
The exam was otherwise without abnormality. A 5 mm polyp was found in the sigmoid colon. The polyp was sessile. The polyp was removed with a jumbo cold forceps.
Resection and retrieval were complete Old tattoo in ascending colon
- recent capsule completed with Dr. Baer -- results not reviewed
-recurrent anemia since October
-recent dark stool with iron then maroon stool on admission
-diarrhea with Protonix use
-hx resection of large Sessile serrated polyp 2018
-hx von Willebrand's disease
-murmur on exam
other med problems:
-meningoma
-NIDDM- pre DM
- HTN
-sleep apnea
-hx appe
PLAN:
Etiology of anemia related to GI bleeding--prior admission heme neg but now with some dark and maroon stools in setting of Von Willebrand's(SB ectasia vs other) vs heme process vs other
pt also with murmur on exam - may be related to anemia vs other
prior work up as noted with recent EGD/colon and capsule
trend hbg and stool record
for further transfusion today
if increased bleeding consider CTA
will request Dr. Baer capsule results that were recently completed to confirm no SB ectasias seen
of for clear diet from GI
hold protonix and add Pepcid BID
reviewed with patient is any constipation add laxative regiment
await heme input for humate-P
-
-
Thank you for consultation and allowing me to participate in the patient's care. Please call the front man GI physician during the after hours with any questions or concerns.
--- NOTE | 2025-01-09 11:27 | HPS.HSE ---
Family Physician
-
Family Physician: Twila Varela MD
Chief Complaint
-
weakness, SOB
History of Present Illness
HPI: 74-year-old female with PMH von Willebrand's disease follows with Dr. Beckford, recurrent GI bleeding, iron deficiency, recent transfusion and was discharged a few days ago; p/w fatigue and loose bloody stool.
Denies to syncope, abd pain, chest pain, fever/chills, change in urination etc,
Medical History
Past Medical History
Past Medical History: Reports Other
Additional Past Medical History:
Diabetes Mellitus, Type II
Essential Hypertension
Hyperlipidemia
Von Willebrand Disease
Osteoarthritis
Obstructive Sleep Apnea
Class II Obesity
Past Surgical History: Reports Other
Additional Past Surgical History:
Left Knee Replacement
Tubal Ligation
Mize Teeth Removal
Social History
Tobacco: Non-smoker
Alcohol: Occasional
Drug: None
Employment: Retired
Family History
Family History: Not pertinent
Allergies / Home Medications
Allergies reflects when Allergies were last updated in [facility].
Home Medications with original date entered in [facility]
Allergy/Medication List:
Allergies
Allergy/AdvReac Type Severity Reaction Status Date / Time
ferric derisomaltose (From Allergy Anaphylaxis Verified 01/04/25 11:11
Monoferric)
latex Allergy rash,rednes Verified 01/04/25 11:08
s
Home Medications
ascorbic acid (vitamin C) 500 mg tablet (Vitamin C) 1,000 mg PO DAILY Supplement 04/10/12
cholecalciferol (vitamin D3) 10 mcg (400 unit) tablet (Vitamin D3) 800 units PO QPM Supplement 04/10/12
metformin 500 mg tablet 500 mg PO BID Gastrointestinal Issue 10/30/24
lisinopril 20 mg tablet 20 mg PO DAILY Blood Pressure 11/02/24
therapeutic multivitamin 1 tab PO DAILY Supplement 11/02/24
ferrous sulfate 325 mg (65 mg iron) tablet 325 mg PO Q48H Supplement 01/05/25
pantoprazole 40 mg tablet,delayed release (Protonix) 40 mg PO DAILY #30 tabs 01/05/25
magnesium oxide 200 mg PO DAILY Supplement 01/09/25
Review of Systems
-
Constitutional: Reports Fatigue
Abdomen/GI: Reports See HPI and Bloody Stools; Denies Abdominal Pain
Physical Exam
Vital Signs
Vital Signs
Temp Pulse Resp Pulse Ox
36.0 C L 90 18 100
01/09/25 09:38 01/09/25 09:38 01/09/25 09:38 01/09/25 10:48
Physical Exam
General: Well Developed, Well Nourished, No Apparent Distress, Comfortable and Conversant
HEENT: NormoCephalic, Moist mucous membranes and Atraumatic
Respiratory: Clear and Non Labored Respirations; No Accessory Resp Muscle Use
Cardiac: S1/S2 and Regular Rhythm
GI: Soft, Non Tender, Non Distended and Normal Bowel Sounds
Rectal: Deferred by Provider
Musculoskeletal: No Clubbing, No Cyanosis and No Edema
Skin: Other (pale); No Rash
Neuro: Awake and Alert
Psych: Calm and Intact Judgment/Insight
Laboratory Results
-
01/09/25 09:56
01/09/25 09:56
Laboratory Results
PT 13.6 Sec (11.4-14.6) 01/09/25 09:56
INR 1.01 01/09/25 09:56
APTT 39.0 Sec (23.4-35.0) H 01/09/25 09:56
Total Bilirubin 0.2 mg/dl (0.2-1.3) 01/09/25 09:56
AST 15 U/L (14-36) 01/09/25 09:56
ALT 14 U/L (0-35) 01/09/25 09:56
Alkaline Phosphatase 54 U/L (38-126) 01/09/25 09:56
Data Reviewed
-
Lab Data: Labs Reviewed by me
Impression/Plan
-
HPI: 74-year-old female with PMH von Willebrand's disease follows with Dr. Beckford, recurrent GI bleeding, iron deficiency, recent transfusion and was discharged a few days ago; p/w fatigue and loose bloody stool.
Denies to syncope, abd pain, chest pain, fever/chills, change in urination etc,
A/P:
# weakness due to symptomatic acute on chronic anemia
# Acute blood loss anemia with GIB
# h/o von Willebrand disease
Hgb 6.0 on admission, 2 units PRBC ordered
Follow iron panel, B12, folate
Consider IV iron infusion
platelet WNL at 268
s/p Factor 8 infusion in ED
noted recent EGD 11/06 showed gastritis, duodenitis s/p biopsies; Colonoscopy showed polypectomy, internal hemorrhoids and diverticular disease
IV pepcid per GI
GI CS
heme CS
# HTN
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
# NIDDM
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
could add ISS if BG starts to increase
# Obesity due to Excess Calories
BMI 35
# questionable heart murmur
Check echo requested by family
DVT ppx: SCD
FC
DW daughter at bedside
[2025-01-09] MEDS: HUMATE-P (FACTOR VIII/VON WILLEBRAND) 30 UNIT IV (11:50)
[2025-01-09] MEDS: PEPCID 20 MG IV ×2 (12:09→19:31)
[2025-01-09] MEDS: NSS (PRESERVATIVE FREE) IV (12:10)
--- NOTE | 2025-01-09 12:44 | CM ---
Chart reviewed, CM attempted to talk with patient at ED bedside twice without success
Assessment completed based on chart review
Was just in [facility] and discharged on 12/2024
DME walk in shower and grap bars
Independent
PCP Dr. Twila begum
RX yes
Pharmacy [facility] in [place]
no hx of VN nor SNF
Pt declined VN on 01/04/25
DCP is to go home with services?
can drive
Cm will continue to follow up for dcp needs
--- NOTE | 2025-01-09 13:35 | PTCARENOTE ---
Patient arrived to unit with 1 Unit PRBC infusing. Assessment completed and and documented in shift assessment.
--- NOTE | 2025-01-09 15:22 | PTCARENOTE ---
2nd Unit PRBC started.
[2025-01-09 16:38] LABS: Iron 32 ug/dl (37-170)
[2025-01-09 16:43] LABS: Ferritin 40.5 ng/ml (11.1-264.0)
--- NOTE | 2025-01-09 16:44 | CON.ONC ---
Consultation
-
Date Consultation Requested: 01/09/25
Date Consultation Performed: 01/09/25
Requesting Provider: Dr Tirso Rosenbaum
Performing Provider: Dr Kristin Rutherford
Reason for Consultation: anemia, GIB, vWd
Impression
Impression
GI bleed
anemia, iron def
von willlebrand disease
Plan
Plan
s/p loading dose of Humate P in ER
will order a second dose for tomorrow (20u/kg). T/c switching to TXA for a few days thereafter if no signs of ongoing bleeding
Monitor CBC w/ diff
Will order IV iron
GI w/u ongoing for source of bleeding - may benefit from enteroscopy
Will follow
Patient History
History of Present Illness
This is a 74 yo F w/ von willebrand disease, who's recently been found to have recurrent anemia, iron deficiency and dark/bloody BMs. She's undergone GI w/u including EGD, colonoscopy, and capsule study, without acute bleeding source. She presented
today with bloody BMs and symptoamtic anemia, with hgb of 6. Recent outpatient blood work confirmed iron deficiency and she was scheduled to start iron infusions as outpatient tomorrow.
She was given Humate P in the ER, and is getting her 2nd of two units of pRBCs.
Past-Medical/Surgical History
Past Medical History
Past Medical History: Cancer (meningioma), HTN, NIDDM (pre DM) and Other (von Willebrands disease, anemia since october, obesity, low vitamin D level, lyme disease, osteoarthritis , sleep apnea, thyroid nodule )
Past Surgical History: Appendectomy
Social History
Tobacco: Non-Smoker
Alcohol: None (rare )
Drug: None
Personal:
Living: With Family
Employment: Retired
Family History
Family History: Other (no family hx bleeding disorder or GI issues )
Patient Medication
�Medication �Instructions �Recorded �Confirmed �Last Taken �Type
ascorbic acid (vitamin C) 500 mg 1,000 mg PO DAILY Supplement 04/10/12 01/09/25 01/08/25 History
tablet (Vitamin C)
cholecalciferol (vitamin D3) 10 800 units PO QPM Supplement 04/10/12 01/09/25 01/08/25 History
mcg (400 unit) tablet (Vitamin D3)
metformin 500 mg tablet 500 mg PO BID Gastrointestinal 10/30/24 01/09/25 01/08/25 History
Issue
lisinopril 20 mg tablet 20 mg PO DAILY Blood Pressure 11/02/24 01/09/25 01/08/25 History
therapeutic multivitamin 1 tab PO DAILY Supplement 11/02/24 01/09/25 01/08/25 History
ferrous sulfate 325 mg (65 mg 325 mg PO Q48H Supplement 01/05/25 01/09/25 01/08/25 History
iron) tablet
pantoprazole 40 mg tablet,delayed 40 mg PO DAILY #30 tabs 01/05/25 01/09/25 01/07/25 Rx
release (Protonix)
magnesium oxide 200 mg PO DAILY Supplement 01/09/25 01/09/25 01/08/25 History
Active Medications
Generic Name Dose Route Start Last Admin
Trade Name Freq PRN Reason Stop Dose Admin
Famotidine 20 mg 01/09/25 11:45 01/09/25 12:09
Famotidine 20 Mg/2 Ml Vial IV 02/06/25 11:44 20 mg
Q12 TYLER Administration
Lisinopril 20 mg 01/10/25 08:00
Lisinopril 20 Mg Tablet PO 02/07/25 07:59
DAILY TYLER
Sodium Chloride 8 ml 01/09/25 12:00 01/09/25 12:10
Nss 8 Ml Bid IV 02/06/25 11:59 Not Given
Q12 TYLER
Review of Systems
-
All Other Systems: Not reviewed unless documented
Physical Exam
-
General: Well Developed, Well Nourished, No Apparent Distress and Conversant; Negative Appears Chronically Ill
Neurology: Non Focal, No Lateralizing Symptoms and No Word Finding Difficulty
Skin: Warm and Dry
Psych: Calm and Intact Judgement/Insight
Labs
Lab Results
WBC 5.9 10^3/uL (4.8-10.8) 01/09/25 09:56
RBC 2.00 10^6/uL (4.20-5.40) L 01/09/25 09:56
Hgb 6.0 g/dL (12.0-16.0) L* D 01/09/25 09:56
Hct 20.2 % (37.0-47.0) L* 01/09/25 09:56
MCV 101.0 fL (81.0-99.0) H 01/09/25 09:56
MCH 30.0 pg (27.0-31.0) 01/09/25 09:56
MCHC 29.7 g/dL (33.0-37.0) L 01/09/25 09:56
RDW 18.4 % (11.5-14.5) H 01/09/25 09:56
Plt Count 268 10^3/uL (130-400) 01/09/25 09:56
MPV 9.8 fL (7.4-10.4) 01/09/25 09:56
Abs Immat Gran (auto) 0.0 10^3/uL (0-0.05) 01/09/25 09:56
Absolute Neuts (auto) 4.0 10^3/uL (1.4-6.5) 01/09/25 09:56
Absolute Lymphs (auto) 1.5 10^3/uL (1.2-3.4) 01/09/25 09:56
Absolute Monos (auto) 0.4 10^3/uL (0.1-0.6) 01/09/25 09:56
Absolute Eos (auto) 0.0 10^3/uL (0-0.7) 01/09/25 09:56
Absolute Basos (auto) 0.0 10^3/uL (0-0.2) 01/09/25 09:56
Immature Gran % 0.5 % (0-0.5) 01/09/25 09:56
Neutrophils % 67.4 % (42.2-75.2) 01/09/25 09:56
Lymphocytes % 24.6 % (20.5-51.1) 01/09/25 09:56
Monocytes % 6.3 % (1.7-9.3) 01/09/25 09:56
Eosinophils % 0.7 % (0-6) 01/09/25 09:56
Basophils % 0.5 % (0-2) 01/09/25 09:56
Creatinine 0.7 mg/dL (0.6-1.0) 01/09/25 09:56
Vital Signs
Vital Signs
Temp Pulse Resp BP Pulse Ox
98.4 F 86 20 116/63 96
01/09/25 15:30 01/09/25 16:00 01/09/25 16:00 01/09/25 16:00 01/09/25 15:45
[2025-01-09 16:47] LABS: Total Iron Binding Capacity 386 ug/dl (265-497)
[2025-01-09 17:14] LABS: Folate > 20.0 ng/ml (2.76-20); Vitamin B12 401 pg/ml (239-931)
--- NOTE | 2025-01-09 18:25 | PTCARENOTE ---
Second unit completed.
[2025-01-09] MEDS: NSS (PRESERVATIVE FREE) 8 ML IV (19:31)
[2025-01-10] VITALS (15 sets, daily range): BP systolic 100–143; BP diastolic 52–91; PULSE 77–90
[2025-01-10 06:29] LABS: Hematocrit 23.0 % (37.0-47.0); Hemoglobin 7.5 g/dL (12.0-16.0); Mean Corp Hgb Conc. 32.6 g/dL (33.0-37.0); Mean Corpuscular Volume 95.8 fL (81.0-99.0); Platelet Count 230 10^3/uL (130-400); Red Cell Dist. Width 18.7 % (11.5-14.5)
[2025-01-10 07:28] LABS: Blood Urea Nitrogen 16 mg/dl (7-17); Calcium 8.4 mg/dl (8.4-10.2); Carbon Dioxide 24 mmol/L (22-30); Chloride 112 mmol/L (98-107); Estimated Creatinine Clearance 87 ml/min; Glucose 115 mg/dl (70-99); Potassium 4.0 mmol/L (3.5-5.1); Sodium 137 mmol/L (135-145); eGFR > 60.00
--- NOTE | 2025-01-10 08:09 | W.PN.HOSP.TC ---
Today's Communication/Plan
-
see A/P
Assessment / Plan
Assessment / Plan
HPI: 74-year-old female with PMH von Willebrand's disease follows with Dr. Beckford, recurrent GI bleeding, iron deficiency, recent transfusion and was discharged a few days ago; p/w fatigue and loose bloody stool.
Denies to syncope, abd pain, chest pain, fever/chills, change in urination etc,
A/P:
# weakness due to symptomatic acute on chronic anemia
# Acute blood loss anemia with GIB
# h/o von Willebrand disease
Hgb 6.0 on admission, s/p 2 units PRBC, Hgb 7.5 today
s/p loading dose of Humate P in ER, second dose today 01/10
noted recent EGD 11/06 showed gastritis, duodenitis s/p biopsies; Colonoscopy showed polypectomy, internal hemorrhoids and diverticular disease
Plan for endoscopy eval by GI 01/10
started IV iron
IV pepcid per GI team
GI on board
heme on board
# HTN
Cont DYSLEXIA TEACHER lisinopril with hold parameter
# NIDDM
hold DYSLEXIA TEACHER metformin for now
could add ISS if BG starts to increase although previous note indicated pt had refused before
# Obesity due to Excess Calories
BMI 35
# questionable heart murmur
Check echo requested by family
# h/o LUE clot
Check LUE US
DVT ppx: SCD
FC
Anticipated Discharge: 24 - 48 hours
Subjective/Interval History
-
Date of Service: January 10, 2025
Objective Data
-
Labs:
Laboratory Results
01/10/25 01/10/25
05:03 06:33
WBC 5.3
Hgb 7.5 L D
Hct 23.0 L
Plt Count 230
Sodium Cancelled 137
Potassium Cancelled 4.0
Chloride Cancelled 112 H
Carbon Dioxide Cancelled 24
BUN Cancelled 16
Creatinine Cancelled 0.6
Glucose Cancelled 115 H
Calcium Cancelled 8.4
Vital Signs:
Vital Signs
Temp Pulse Resp BP Pulse Ox
36.7 C 71 23 115/61 98
01/10/25 07:45 01/10/25 06:00 01/10/25 06:00 01/10/25 06:00 01/10/25 06:00
Review of Systems
-
History Source: Patient
All other systems: Reviewed and negative
Physical Exam
-
General: Well Developed, Well Nourished, No Apparent Distress, Comfortable, Conversant and Obese
HEENT: Normocephalic and Atraumatic
Respiratory: Clear to Auscultation and Non Labored Respirations; Negative Accessory Resp Muscle Use
Cardiac: Regular Rhythm and S1/S2
GI: Soft and Nontender
Neuro: Awake and Alert
Psych: Calm and Intact Judgement/Insight
Data Reviewed
-
Labs: Labs Reviewed by me and Discussed with Patient
[2025-01-10] MEDS: NSS (PRESERVATIVE FREE) 8 ML IV ×2 (09:01→20:53)
[2025-01-10] MEDS: PEPCID 20 MG IV ×2 (09:01→20:50)
[2025-01-10] MEDS: HUMATE-P (FACTOR VIII/VON WILLEBRAND) 20 UNIT IV (09:02)
--- NOTE | 2025-01-10 09:42 | PTCARENOTE ---
Patient out of bed to chair. Administered Humate-p/factor VIII iv medication. Waiting for transport to take patient to GI lab. Report given to GI RN. Patient had soft stool with blood noted in stool. Patient denies any pain or discomfort. NPO
overnight for GI lab. VS stable. Call escalera within reach.
--- NOTE | 2025-01-10 10:31 | W.PN.ONC2 ---
Today's Communication / Plan
-
Await EGD scheduled for later today to assess whether patient has active bleeding. If no active bleeding, recommend tranexamic acid (TXA) at dose listed above for 5 days.
Impression
Impression
GI bleed
anemia, iron def
von willlebrand disease
Plan
Plan
s/p Humate P x 2 doses 01/09 (load) and 01/10.
Await EGD depending what they see consider starting TXA for a few days if no signs of ongoing bleeding.
Dosing for TXA (tranexamic acid): 1,300 mg (two 650 mg tablets) three times daily for up to 5 days.
Monitor CBC w/ diff
IV iron ordered.
Appreciate GI evaluation
Will follow along with you
Subjective/Objective
Chief Complaint
ACS Hematology
Subjective
Patient for EGD and received Humate-P x 2 doses 1 yesterday in the ER and 1 this morning.. Bowel movement this morning described as very minimal blood.
Vital Signs:
Vital Signs
Temp Pulse Resp BP Pulse Ox
98.0 F 71 23 115/61 98
01/10/25 07:45 01/10/25 06:00 01/10/25 06:00 01/10/25 06:00 01/10/25 06:00
Lab Results:
Laboratory Data
WBC 5.3 10^3/uL (4.8-10.8) 01/10/25 05:03
Hgb 7.5 g/dL (12.0-16.0) L D 01/10/25 05:03
Plt Count 230 10^3/uL (130-400) 01/10/25 05:03
PT 13.6 Sec (11.4-14.6) 01/09/25 09:56
INR 1.01 01/09/25 09:56
APTT 39.0 Sec (23.4-35.0) H 01/09/25 09:56
eGFR > 60.00 01/10/25 06:33
Physical Exam
Appears well
Cardiology: S1 and S2
Pulmonary: Clear
GI: Soft
--- NOTE | 2025-01-10 10:41 | CM ---
F/U: Patient has recurrent GI bleeding, iron deficiency, recent transfusion and was discharged a few days ago; p/w fatigue and loose bloody stool. Patient still being monitored, there is a plan for endoscopy eval by GI 01/10, started IV iron, and IV
pepcid per GI. No ordered for PT/OT now, patient Independent w/ ADL's. PLAN: Anticipate Home No Needs vs. VN.
--- NOTE | 2025-01-10 10:52 | PTCARENOTE ---
Patient at GI lab. Received report. No bleeding found. Patient to resume diet. Will be returning to room shortly.
[2025-01-10] MEDS: ZESTRIL 20 MG PO (12:53)
[2025-01-10] MEDS: FERRLECIT 110 MG IV (14:39)
--- NOTE | 2025-01-10 18:00 | PTCARENOTE ---
Patient OOB to chair for dinner. Tolerated low residue diet. VS remain stable.
[2025-01-11] VITALS (18 sets, daily range): BP systolic 101–137; BP diastolic 67–117
[2025-01-11 04:49] LABS: Hematocrit 22.8 % (37.0-47.0); Hemoglobin 7.2 g/dL (12.0-16.0); Mean Corp Hgb Conc. 31.6 g/dL (33.0-37.0); Mean Corpuscular Volume 97.4 fL (81.0-99.0); Platelet Count 260 10^3/uL (130-400); Red Cell Dist. Width 18.7 % (11.5-14.5)
[2025-01-11 05:13] LABS: Blood Urea Nitrogen 15 mg/dl (7-17); Calcium 9.0 mg/dl (8.4-10.2); Carbon Dioxide 26 mmol/L (22-30); Chloride 111 mmol/L (98-107); Estimated Creatinine Clearance 75 ml/min; Glucose 104 mg/dl (70-99); Potassium 4.1 mmol/L (3.5-5.1); Sodium 138 mmol/L (135-145); eGFR > 60.00
--- NOTE | 2025-01-11 05:28 | PTCARENOTE ---
pt is aa0x3. using call light appropriately. oobx1 to the bathroom gait steady. no bloody bms overnight.
[2025-01-11] MEDS: NSS (PRESERVATIVE FREE) 8 ML IV (07:55)
[2025-01-11] MEDS: PEPCID 20 MG IV (07:56)
--- NOTE | 2025-01-11 08:39 | W.PN.HOSP.TC ---
Today's Communication/Plan
-
see A/P
Assessment / Plan
Assessment / Plan
HPI: 74-year-old female with PMH von Willebrand's disease follows with Dr. Beckford, recurrent GI bleeding, iron deficiency, recent transfusion and was discharged a few days ago; p/w fatigue and loose bloody stool.
Denies to syncope, abd pain, chest pain, fever/chills, change in urination etc,
A/P:
# weakness due to symptomatic acute on chronic anemia
# Acute blood loss anemia with GIB
# h/o von Willebrand disease
Hgb 6.0 on admission, s/p 2 units PRBC
transfuse third unit PRBC today for Hgb of 7.2 today
s/p 2 units of Humate P, no further per Heme
noted recent EGD 11/06 showed gastritis, duodenitis s/p biopsies; Colonoscopy showed polypectomy, internal hemorrhoids and diverticular disease
s/p Small bowel enteroscopy 01/10, result was unrevealing
Pt has been started with IV iron, cont while in the hospital
IV pepcid per GI team
GI on board
heme on board
Daughter asking about CT Angio, discussed this with GI, will let GI see pt first before and decide on CT A
# HTN
Cont BIOMASS FACILITATOR lisinopril with hold parameter
# NIDDM
hold BIOMASS FACILITATOR metformin for now
could add ISS if BG starts to increase although previous note indicated pt had refused before
# Obesity due to Excess Calories
BMI 35
# questionable heart murmur
Echo showed mild aortic stenosis, Normal left ventricular size and systolic function. EF 70-75%. Compared to previous echo from July 2017, there is now mild aortic stenosis.
# h/o recent LUE clot from 12/06/2024
LUE US this admission 01/10/2025 showed improved small nonocclusive thrombus in the cephalic vein.
DVT ppx: SCD
FC
Extensive discussion with daughter on the phone. Answered all questions.
DW GI
total time 51 min
Anticipated Discharge: 24 - 48 hours
Subjective/Interval History
-
Date of Service: January 11, 2025
Objective Data
-
Labs:
Laboratory Results
01/11/25
04:27
WBC 5.5
Hgb 7.2 L
Hct 22.8 L
Plt Count 260
Sodium 138
Potassium 4.1
Chloride 111 H
Carbon Dioxide 26
BUN 15
Creatinine 0.7
Glucose 104 H
Calcium 9.0
Vital Signs:
Vital Signs
Temp Pulse Resp BP Pulse Ox
36.6 C 67 21 125/74 93
01/11/25 07:03 01/11/25 06:00 01/11/25 06:00 01/11/25 06:00 01/11/25 06:00
I&O
01/10/25 01/11/25 01/12/25
06:59 06:59 06:59
Intake Total 900 / 900
Balance 900 / 900
Review of Systems
-
History Source: Patient
All other systems: Reviewed and negative
Abdomen/GI: Reports Bloody Stools
Physical Exam
-
General: Well Developed, Well Nourished, No Apparent Distress, Comfortable, Conversant and Obese
HEENT: Normocephalic and Atraumatic
Respiratory: Clear to Auscultation and Non Labored Respirations; Negative Accessory Resp Muscle Use
Cardiac: Regular Rhythm and S1/S2
GI: Soft and Nontender
Neuro: Awake and Alert
Psych: Calm and Intact Judgement/Insight
Data Reviewed
-
Medical Tests (Nuc Med, Echo etc): Report Reviewed by me (small bowel enteroscopy)
Labs: Labs Reviewed by me and Discussed with Patient
--- NOTE | 2025-01-11 09:39 | W.PN.GI.CBS2 ---
Today's Communication / Plan
-
Prior EGD, enteroscopy, colonoscopy results reviewed
No source for her recurrent bleeding identified
At this point she has been admitted 3 times since October for bleeding, last admission less than a week ago
Recommend transfer to [place] for double balloon enteroscopy to identify bleeding source which remains obscure- possible distal SB lesion
Would hold off on CTA at this point since she does not appear to be actively bleeding (BP/HR stable, Hgb down 7.5 to 7.2 overnight, minimal drop)
If signs of more active bleeding, then CTA then
I updated daughter Laury.
Assessment / Plan
-
Summary: Pt is a 74yo with hx von willebrand's disease, meningoma, NIDDM- pre DM, HTN, sleep apnea, thyroid nodule with recent admission in October with normocytic heme neg anemia with brown stool during admission. She reports some black dark
stool prior to that admission. She received 3 units PRBC's and IV iron for 5 doses with completion of EGD and colon without active bleeding. She was also followed by hematology with Humate and TXA given prior to procedure. Her hbg was 9.1
discharge and she was recommended follow up with [facility] Dr. Baer for capsule endoscopy which was completed and normal per patient since discharge. She had return to ER in November for near syncope vs allergic reaction with hbg 8.4. She then
returned 01/04- 01/05 with hbg 5.5 with further transfusion and total 5 units PRBC since October. She had hbg 01/05 noted 8.1 and now returns 4 days later with symptomatic anemia and hbg 6. Pt states long hx von Willebrand's but anemia issues
started in October 2024. Pt does report recent difficulty with hard stool which is not typical problem and noted red blood with about 1 tsp on blood. She also report dark stool with oral iron use and some diarrhea since starting Protonix and
some dizziness and shortness of breath. . Some bruising with IV's but denies falls, vaginal or urinary bleeding. She was noted with dark red stool in ER.
2018 colonoscopy -- removal of 2.5cm sessile serrated polyp with placement of 5 clips and tattooed at site(no path reviewed). Repeat colonoscopy was recommended 6-12 months. She did have repeat
2020 colonoscopy --with report not reviewed and due again soon for repeat testing with Dr. Baer.
EGD 11/06/24- [facility] - Normal esophagus.- Gastritis, characterized by erythema. Biopsied.- A single gastric polyp. Resected and retrieved.- Duodenitis Biopsied.
COLON 11/08/24- Do - cecal and sigmoid polyps. Old tattoo ascending colon. Hemorrhoids. Diverticulosis
- recent capsule completed with Dr. Baer -- results not reviewed
01/09/25- 2 units PRBCs
Impression:
Overt, obscure GI bleeding s/p EGD, Enteroscopy, Colonoscopy without source identified
-recurrent anemia since October
-recent dark stool with iron then maroon stool on admission
-diarrhea with Protonix use
-hx resection of large Sessile serrated polyp 2018
-hx von Willebrand's disease
-murmur on exam
other med problems:
-meningoma
-NIDDM- pre DM
- HTN
-sleep apnea
-hx appe
Subjective
Subjective
Date of Service: January 11, 2025
Pt passed dark stool with burgundy around stool this am. Denies abd pain
Objective
Data Reviewed
Laboratory Data:
Laboratory Results
01/11/25 04:27
01/11/25 04:27
Laboratory Results
PT 13.6 Sec (11.4-14.6) 01/09/25 09:56
INR 1.01 01/09/25 09:56
APTT 39.0 Sec (23.4-35.0) H 01/09/25 09:56
Total Bilirubin 0.2 mg/dl (0.2-1.3) 01/09/25 09:56
AST 15 U/L (14-36) 01/09/25 09:56
ALT 14 U/L (0-35) 01/09/25 09:56
Alkaline Phosphatase 54 U/L (38-126) 01/09/25 09:56
Vital Signs and I&O:
Vital Signs
Temp Pulse Resp BP Pulse Ox
98 F 67 21 125/74 93
01/11/25 07:03 01/11/25 06:00 01/11/25 06:00 01/11/25 06:00 01/11/25 06:00
I&O
01/10/25 01/11/25 01/12/25
06:59 06:59 06:59
Intake Total 900 / 900
Balance 900 / 900
Physical Exam
Physical Exam
GI: Non Distended and Non Tender
--- NOTE | 2025-01-11 10:15 | PTCARENOTE ---
assumed care at 0700. VSS. NSR, HR 80s on telemetry. AOx3. Had softly formed red BM, Dr. George made aware during rounds. Order noted for 1 unit blood, currently infusing. Patient tearful, emotional support provided.
[2025-01-11] MEDS: ZESTRIL 20 MG PO (12:11)
[2025-01-11] MEDS: FERRLECIT 110 MG IV (14:42)
[2025-01-11 18:21] LABS: Hepatitis C Antibody Negative (Negative)
[2025-01-11] MEDS: PEPCID 20 MG PO (19:43)
[2025-01-12] VITALS (18 sets, daily range): BP systolic 108–146; BP diastolic 66–108
--- NOTE | 2025-01-12 00:33 | PTCARENOTE ---
Pt resting comfortable, offers no complaints. VSS.
[2025-01-12 04:53] LABS: Hematocrit 25.2 % (37.0-47.0); Hemoglobin 8.1 g/dL (12.0-16.0); Mean Corp Hgb Conc. 32.1 g/dL (33.0-37.0); Mean Corpuscular Volume 94.4 fL (81.0-99.0); Platelet Count 240 10^3/uL (130-400); Red Cell Dist. Width 18.7 % (11.5-14.5)
[2025-01-12 05:23] LABS: Blood Urea Nitrogen 16 mg/dl (7-17); Calcium 8.9 mg/dl (8.4-10.2); Carbon Dioxide 22 mmol/L (22-30); Chloride 113 mmol/L (98-107); Estimated Creatinine Clearance 75 ml/min; Glucose 108 mg/dl (70-99); Potassium 4.1 mmol/L (3.5-5.1); Sodium 138 mmol/L (135-145); eGFR > 60.00
[2025-01-12] MEDS: PEPCID 20 MG PO ×2 (07:53→19:25)
[2025-01-12] MEDS: ZESTRIL 20 MG PO (07:53)
--- NOTE | 2025-01-12 07:56 | W.PN.GI.CBS2 ---
Today's Communication / Plan
-
Spoke with [facility] Dr Ruiz to review case
Full bed situation at [facility], but Transfer center will confer with Hospitalists
No further BMs, bleeding appears to have stopped
Trend Hgb and monitor BMs. If rebleed, check CTA or nuclear scan
Discussed with Hospitalist and daughter
Will follow
Assessment / Plan
-
Summary: Pt is a 74yo with hx von willebrand's disease, meningoma, NIDDM- pre DM, HTN, sleep apnea, thyroid nodule with recent admission in October with normocytic heme neg anemia with brown stool during admission. She reports some black dark
stool prior to that admission. She received 3 units PRBC's and IV iron for 5 doses with completion of EGD and colon without active bleeding. She was also followed by hematology with Humate and TXA given prior to procedure. Her hbg was 9.1
discharge and she was recommended follow up with [facility] Dr. Baer for capsule endoscopy which was completed and normal per patient since discharge. She had return to ER in November for near syncope vs allergic reaction with hbg 8.4. She then
returned 01/04- 01/05 with hbg 5.5 with further transfusion and total 5 units PRBC since October. She had hbg 01/05 noted 8.1 and now returns 4 days later with symptomatic anemia and hbg 6. Pt states long hx von Willebrand's but anemia issues
started in October 2024. Pt does report recent difficulty with hard stool which is not typical problem and noted red blood with about 1 tsp on blood. She also report dark stool with oral iron use and some diarrhea since starting Protonix and
some dizziness and shortness of breath. . Some bruising with IV's but denies falls, vaginal or urinary bleeding. She was noted with dark red stool in ER.
2018 colonoscopy -- removal of 2.5cm sessile serrated polyp with placement of 5 clips and tattooed at site(no path reviewed). Repeat colonoscopy was recommended 6-12 months. She did have repeat
2020 colonoscopy --with report not reviewed and due again soon for repeat testing with Dr. Baer.
11/02 Hgb 6.2.
EGD 11/06/24- [facility] - Normal esophagus.- Gastritis, characterized by erythema. Biopsied.- A single gastric polyp. Resected and retrieved.- Duodenitis Biopsied.
COLON 11/08/24- Do - cecal and sigmoid polyps. Old tattoo ascending colon. Hemorrhoids. Diverticulosis
11/08 Hgb 9.1 on d/c
recent capsule completed with Dr. Baer -- results not reviewed
01/04 Hgb 5.5. Transfused and d/c Hgb 8.1 on 01/05
01/09 Hgb 6.0
01/09/25- 2 units PRBCs
01/11/25- 1 unit PRBC
Impression:
Overt, obscure GI bleeding s/p EGD, Enteroscopy, Colonoscopy without source identified
-recurrent anemia since October
-recent dark stool with iron then maroon stool on admission
-diarrhea with Protonix use
-hx resection of large Sessile serrated polyp 2018
-hx von Willebrand's disease
-murmur on exam
other med problems:
-meningoma
-NIDDM- pre DM
- HTN
-sleep apnea
-hx appe
Subjective
Subjective
Date of Service: January 12, 2025
No further bleeding since yesterday early am. Denies complaints
Objective
Data Reviewed
Laboratory Data:
Laboratory Results
01/12/25 04:44
01/12/25 04:44
Laboratory Results
PT 13.6 Sec (11.4-14.6) 01/09/25 09:56
INR 1.01 01/09/25 09:56
APTT 39.0 Sec (23.4-35.0) H 01/09/25 09:56
Total Bilirubin 0.2 mg/dl (0.2-1.3) 01/09/25 09:56
AST 15 U/L (14-36) 01/09/25 09:56
ALT 14 U/L (0-35) 01/09/25 09:56
Alkaline Phosphatase 54 U/L (38-126) 01/09/25 09:56
Vital Signs and I&O:
Vital Signs
Temp Pulse Resp BP Pulse Ox
97.7 F 73 18 143/87 100
01/12/25 07:45 01/12/25 07:53 01/12/25 07:43 01/12/25 07:53 01/12/25 07:45
I&O
01/11/25 01/12/25 01/13/25
06:59 06:59 06:59
Intake Total 900 / 900 250 / 250
Balance 900 / 900 250 / 250
Physical Exam
Physical Exam
GI: Soft, Non Distended and Non Tender
--- NOTE | 2025-01-12 08:20 | W.PN.HOSP.TC ---
Today's Communication/Plan
-
see A/P
Assessment / Plan
Assessment / Plan
HPI: 74-year-old female with PMH von Willebrand's disease follows with Dr. Beckford, recurrent GI bleeding, iron deficiency, recent transfusion and was discharged a few days ago; p/w fatigue and loose bloody stool.
Denies to syncope, abd pain, chest pain, fever/chills, change in urination etc,
A/P:
# weakness due to symptomatic acute on chronic anemia
# Acute blood loss anemia with GIB
# h/o von Willebrand disease
Hgb 6.0 on admission, s/p 3 units PRBC transfusion, Hgb at 8.1 today
s/p 2 units of Humate P, no further per Heme
noted recent EGD 11/06 showed gastritis, duodenitis s/p biopsies; Colonoscopy showed polypectomy, internal hemorrhoids and diverticular disease
s/p Small bowel enteroscopy 01/10, result was unrevealing
GI recc transfer to [place] for double balloon enteroscopy to identify bleeding source which remains obscure- possible distal SB lesion.
Also would hold off on CTA at this point since she does not appear to be actively bleeding. If signs of more active bleeding, then CTA
Cont IV iron
Cont pepcid now PO BID
GI on board, heme on board
# HTN
Cont AGRICULTURAL EQUIPMENT TEST ENGINEER lisinopril with hold parameter
# NIDDM
hold AGRICULTURAL EQUIPMENT TEST ENGINEER metformin for now
could add ISS if BG starts to increase although previous note indicated pt had refused before
# Obesity due to Excess Calories
BMI 35
# questionable heart murmur
Echo showed mild aortic stenosis, Normal left ventricular size and systolic function. EF 70-75%. Compared to previous echo from July 2017, there is now mild aortic stenosis.
# h/o recent LUE clot from 12/06/2024
LUE US this admission 01/10/2025 showed improved small nonocclusive thrombus in the cephalic vein.
DVT ppx: SCD
FC
updated daughter on the phone
Initiated transfer to [place]
total time 51 min
Anticipated Discharge: 24 - 48 hours
Subjective/Interval History
-
Date of Service: January 12, 2025
Objective Data
-
Labs:
Laboratory Results
01/12/25
04:44
WBC 6.0
Hgb 8.1 L
Hct 25.2 L
Plt Count 240
Sodium 138
Potassium 4.1
Chloride 113 H
Carbon Dioxide 22
BUN 16
Creatinine 0.7
Glucose 108 H
Calcium 8.9
Vital Signs:
Vital Signs
Temp Pulse Resp BP Pulse Ox
36.5 C 73 18 143/87 100
01/12/25 07:45 01/12/25 07:53 01/12/25 07:43 01/12/25 07:53 01/12/25 07:45
I&O
01/11/25 01/12/25 01/13/25
06:59 06:59 06:59
Intake Total 900 / 900 250 / 250
Balance 900 / 900 250 / 250
Review of Systems
-
History Source: Patient
All other systems: Reviewed and negative
Abdomen/GI: Denies Bloody Stools
Physical Exam
-
General: Well Developed, Well Nourished, No Apparent Distress, Comfortable, Conversant and Obese
HEENT: Normocephalic and Atraumatic
Respiratory: Clear to Auscultation and Non Labored Respirations; Negative Accessory Resp Muscle Use
Cardiac: Regular Rhythm and S1/S2
GI: Soft and Nontender
Neuro: Awake and Alert
Psych: Calm and Intact Judgement/Insight
Data Reviewed
-
Medical Tests (Nuc Med, Echo etc): Report Reviewed by me (small bowel enteroscopy)
Labs: Labs Reviewed by me and Discussed with Patient
--- NOTE | 2025-01-12 10:27 | PTCARENOTE ---
Patient had a formed, melena colored stool surrounded by bright red blood in the toilet. Notified Dr. Andres George , patient at bleeding scan at this time.
--- NOTE | 2025-01-12 11:35 | W.PN.ONC ---
Today's Communication / Plan
-
See revised plan.
Impression
Impression
GI bleed
anemia, iron def
von willlebrand disease
Plan
Plan
s/p Humate P x 2 doses 01/09 (load) and 01/10.
Enterosopy negative to jejunum; possible tx to [facility]
Recurrent bleeding on 01/12; will give dose of Humate P now, possible further dose in AM if still here
Subjective/Objective
Subjective/Objective
She had further bright red blood per rectum. She is currently at a bleeding scan.
Vital Signs:
Vital Signs
Temp Pulse Resp BP Pulse Ox
97.7 F 87 22 142/84 100
01/12/25 07:45 01/12/25 10:00 01/12/25 10:00 01/12/25 10:00 01/12/25 10:00
Lab Results:
Laboratory Data
WBC 6.0 10^3/uL (4.8-10.8) 01/12/25 04:44
Hgb 8.1 g/dL (12.0-16.0) L 01/12/25 04:44
Plt Count 240 10^3/uL (130-400) 01/12/25 04:44
PT 13.6 Sec (11.4-14.6) 01/09/25 09:56
INR 1.01 01/09/25 09:56
APTT 39.0 Sec (23.4-35.0) H 01/09/25 09:56
eGFR > 60.00 01/12/25 04:44
Orders
Orders
Orders From Last 24 Hours
01/12/25 11:35
Factor VIII,Antihemoph/Von Delroy [Humate-P (Factor VIII/Von Willebrand)] 2,174 unit Syringe [Syringe-Pump] 0 ml IV ONCE
[2025-01-12] MEDS: HUMATE-P (FACTOR VIII/VON WILLEBRAND) 15 UNIT IV (12:48)
[2025-01-12] MEDS: FERRLECIT 110 MG IV (13:19)
--- NOTE | 2025-01-12 14:54 | CM ---
F/U: Hospitalist/ GI notes are stating that transfer to [facility] was initiated for for double balloon enteroscopy to identify bleeding source which remains obscure. PLAN: Transfer to [facility].
[2025-01-12] MEDS: NULYTELY SOLUTION 4 LITERS PO (17:05)
--- NOTE | 2025-01-12 18:03 | VATNOTE ---
Upon rounds, noted right AC 20p IV line pt winced upon flushing. Area red and very tender to touch. Pt stated she went to [facility] today and they placed a new IV in right AC, where old one was. Asked pt why old one was taken out and stated 'they
couldn't get blood from it'; IV site 20p removed and ice pack applied. Pt stated 'only hurts when touched.' Pain level '5'; PCN made aware. Pt has 22p right hand currently. VAT to monitor.
[2025-01-13] VITALS (13 sets, daily range): BP systolic 108–156; BP diastolic 64–116
--- NOTE | 2025-01-13 02:48 | PTCARENOTE ---
Pt bowel prepping. Able to ambulate to bathroom and back independently. Denies complaints at this time. Belly round, slightly distended. SR on CM. Pt able to make needs known. Call escalera within reach. Care ongoing.
[2025-01-13 05:45] LABS: Hematocrit 28.3 % (37.0-47.0); Hemoglobin 9.0 g/dL (12.0-16.0); Mean Corp Hgb Conc. 31.8 g/dL (33.0-37.0); Mean Corpuscular Volume 98.3 fL (81.0-99.0); Platelet Count 285 10^3/uL (130-400); Red Cell Dist. Width 18.7 % (11.5-14.5)
[2025-01-13 06:00] LABS: Blood Urea Nitrogen 8 mg/dl (7-17); Calcium 9.2 mg/dl (8.4-10.2); Carbon Dioxide 24 mmol/L (22-30); Chloride 111 mmol/L (98-107); Estimated Creatinine Clearance 87 ml/min; Glucose 106 mg/dl (70-99); Potassium 4.0 mmol/L (3.5-5.1); Sodium 138 mmol/L (135-145); eGFR > 60.00
[2025-01-13] MEDS: PEPCID 20 MG PO ×2 (08:12→20:52)
[2025-01-13] MEDS: ZESTRIL 20 MG PO (08:12)
--- NOTE | 2025-01-13 08:20 | W.PN.HOSP.TC ---
Today's Communication/Plan
-
see A/P
Assessment / Plan
Assessment / Plan
HPI: 74-year-old female with PMH von Willebrand's disease follows with Dr. Beckford, recurrent GI bleeding, iron deficiency, recent transfusion and was discharged a few days ago; p/w fatigue and loose bloody stool.
Denies to syncope, abd pain, chest pain, fever/chills, change in urination etc,
A/P:
# weakness due to symptomatic acute on chronic anemia
# Acute blood loss anemia with GIB
# h/o von Willebrand disease
noted recent EGD 11/06 showed gastritis, duodenitis s/p biopsies; Colonoscopy showed polypectomy, internal hemorrhoids and diverticular disease
Hgb 6.0 on admission, s/p 3 units PRBC transfusion, Hgb improved to 9.0 today
s/p 3 units of Humate P
s/p Small bowel enteroscopy 01/10, result was unrevealing
Bleeding scan negative for active intestinal bleeding.
Plan for C scope today by GI
transfer to [place] has been initiated (for double balloon enteroscopy eval), however since there has been no significant GI bleed and pt is improving clinically (BP stable, Hgb improving, blood BM resolving), [place] has deferred transfer at this time.
Cont IV iron
Cont pepcid BID
GI on board, heme on board
# HTN
Cont SUPPLEMENTAL NURSE lisinopril with hold parameter
# NIDDM
hold SUPPLEMENTAL NURSE metformin for now
could add ISS if BG starts to increase although previous note indicated pt had refused before
# Obesity due to Excess Calories
BMI 35
# questionable heart murmur
Echo showed mild aortic stenosis, Normal left ventricular size and systolic function. EF 70-75%. Compared to previous echo from July 2017, there is now mild aortic stenosis.
# h/o recent LUE clot from 12/06/2024
LUE US this admission 01/10/2025 showed improved small nonocclusive thrombus in the cephalic vein.
DVT ppx: SCD
FC
updated daughter on the phone
total time 51 min
Anticipated Discharge: 24 - 48 hours
Subjective/Interval History
-
Date of Service: January 13, 2025
Objective Data
-
Labs:
Laboratory Results
01/13/25
05:25
WBC 5.7
Hgb 9.0 L
Hct 28.3 L
Plt Count 285
Sodium 138
Potassium 4.0
Chloride 111 H
Carbon Dioxide 24
BUN 8
Creatinine 0.6
Glucose 106 H
Calcium 9.2
Vital Signs:
Vital Signs
Temp Pulse Resp BP Pulse Ox
36.5 C 99 16 144/82 99
01/13/25 07:08 01/13/25 08:12 01/12/25 17:05 01/13/25 08:12 01/13/25 08:17
I&O
01/12/25 01/13/25 01/14/25
06:59 06:59 06:59
Intake Total 250 / 250 240 / 240
Output Total 4 / 4
Balance 250 / 250 236 / 236
Review of Systems
-
History Source: Patient
All other systems: Reviewed and negative
Abdomen/GI: Denies Bloody Stools (resolved for now )
Physical Exam
-
General: Well Developed, Well Nourished, No Apparent Distress, Comfortable, Conversant and Obese
HEENT: Normocephalic and Atraumatic
Respiratory: Clear to Auscultation and Non Labored Respirations; Negative Accessory Resp Muscle Use
Cardiac: Regular Rhythm and S1/S2
GI: Soft and Nontender
Neuro: Awake, Alert and Nonfocal/Grossly Intact
Psych: Calm and Intact Judgement/Insight
Data Reviewed
-
Medical Tests (Nuc Med, Echo etc): Report Reviewed by me (small bowel enteroscopy)
Labs: Labs Reviewed by me and Discussed with Patient
--- NOTE | 2025-01-13 10:40 | W.PN.UPDATE ---
Update Note
Progress Note Update
Colonoscopy done
Two ectasias in cecum and ascending colon. Cauterized w APC and clipped. They bled with cautery which stopped at end of intervention
Sigmoid diverticulosis
REC:
Clears
Monitor Hgb and BMs
I asked Hematology to give Humate today
--- NOTE | 2025-01-13 11:17 | PTCARENOTE ---
Patient is back in her room after colonoscopy. Denying pain or nausea when asked. Clear liquid diet to be ordered. Patient educated about plan of care.
--- NOTE | 2025-01-13 12:15 | W.PN.UPDATE ---
Update Note
Progress Note Update
Case d/w Dr George: pt had some bleeding during procedure today following cauterization of probable bleeding source.
Humate-P ordered for today.
Reassess 01/14 AM.
[2025-01-13] MEDS: HUMATE-P (FACTOR VIII/VON WILLEBRAND) 20 UNIT IV (14:24)
[2025-01-13] MEDS: FERRLECIT 110 MG IV (15:06)
[2025-01-13] MEDS: MELATONIN 5 MG PO (20:52)
[2025-01-14] VITALS (12 sets, daily range): BP systolic 96–135; BP diastolic 54–83
--- NOTE | 2025-01-14 04:07 | PTCARENOTE ---
assumed care of patient. pt is AAOx3, self care in the room. VSS. able to make needs known. no c/o pain or SOB. 98% RA. tolerating a clear liquid diet. no reports of any black stools. care ongoing.
[2025-01-14 05:46] LABS: Hematocrit 31.8 % (37.0-47.0); Hemoglobin 10.1 g/dL (12.0-16.0); Mean Corp Hgb Conc. 31.8 g/dL (33.0-37.0); Mean Corpuscular Volume 96.4 fL (81.0-99.0); Platelet Count 307 10^3/uL (130-400); Red Cell Dist. Width 18.1 % (11.5-14.5)
[2025-01-14 06:11] LABS: Blood Urea Nitrogen 5 mg/dl (7-17); Calcium 9.4 mg/dl (8.4-10.2); Carbon Dioxide 25 mmol/L (22-30); Chloride 110 mmol/L (98-107); Estimated Creatinine Clearance 75 ml/min; Glucose 102 mg/dl (70-99); Potassium 4.0 mmol/L (3.5-5.1); Sodium 139 mmol/L (135-145); eGFR > 60.00
--- NOTE | 2025-01-14 08:06 | W.PN.HOSP.TC ---
Today's Communication/Plan
-
see A/P
Assessment / Plan
Assessment / Plan
HPI: 74-year-old female with PMH von Willebrand's disease follows with Dr. Beckford, recurrent GI bleeding, iron deficiency, recent transfusion and was discharged a few days ago; p/w fatigue and loose bloody stool.
Denies to syncope, abd pain, chest pain, fever/chills, change in urination etc,
A/P:
# weakness due to symptomatic acute on chronic anemia
# Acute blood loss anemia with GIB, possibly related to colonic angioectasia
# h/o von Willebrand disease
noted recent EGD 11/06 showed gastritis, duodenitis s/p biopsies; recent Colonoscopy showed polypectomy, internal hemorrhoids and diverticular disease
Hgb 6.0 on admission, s/p 3 units PRBC transfusion, Hgb at 10.1 today
s/p 4 units of Humate-P
s/p Small bowel enteroscopy 01/10, result was unrevealing
Bleeding scan negative for active intestinal bleeding.
s/p C scope 01/13, noted two colonic angiectasias, treated with APC and clips were placed.
On clears now, ADAT per GI
Cont IV iron, cont pepcid BID
GI on board, heme on board
Of note, transfer to [place] has been initiated (for double balloon enteroscopy eval), however since there has been no significant GI bleed and pt is improving clinically (BP stable, Hgb improving, blood BM resolving), [place] has deferred transfer at
this time.
# HTN
Cont CONSUMER RECRUITER lisinopril with hold parameter
# NIDDM
hold CONSUMER RECRUITER metformin for now
could add ISS if BG starts to increase although previous note indicated pt had refused before
# Obesity due to Excess Calories
BMI 35
# questionable heart murmur
Echo showed mild aortic stenosis, Normal left ventricular size and systolic function. EF 70-75%. Compared to previous echo from July 2017, there is now mild aortic stenosis.
# h/o recent LUE clot from 12/06/2024
LUE US this admission 01/10/2025 showed improved small nonocclusive thrombus in the cephalic vein.
DVT ppx: SCD
FC
updated daughter on the phone
Anticipated Discharge: Within 24 hours
Subjective/Interval History
-
Date of Service: January 14, 2025
Objective Data
-
Labs:
Laboratory Results
01/14/25
05:32
WBC 5.5
Hgb 10.1 L
Hct 31.8 L
Plt Count 307
Sodium 139
Potassium 4.0
Chloride 110 H
Carbon Dioxide 25
BUN 5 L
Creatinine 0.7
Glucose 102 H
Calcium 9.4
Vital Signs:
Vital Signs
Temp Pulse Resp BP Pulse Ox
36.6 C 60 16 126/77 95
01/14/25 07:12 01/14/25 06:00 01/12/25 17:05 01/14/25 06:00 01/14/25 00:00
I&O
01/13/25 01/14/25 01/15/25
06:59 06:59 06:59
Intake Total 240 / 240
Output Total 4 / 4
Balance 236 / 236
Review of Systems
-
History Source: Patient
All other systems: Reviewed and negative
Abdomen/GI: Denies Bloody Stools
Physical Exam
-
General: Well Developed, Well Nourished, No Apparent Distress, Comfortable, Conversant and Obese
HEENT: Normocephalic and Atraumatic
Respiratory: Clear to Auscultation and Non Labored Respirations; Negative Accessory Resp Muscle Use
Cardiac: Regular Rhythm and S1/S2
GI: Soft and Nontender
Neuro: Awake, Alert and Nonfocal/Grossly Intact
Psych: Calm and Intact Judgement/Insight
Data Reviewed
-
Medical Tests (Nuc Med, Echo etc): Report Reviewed by me (small bowel enteroscopy)
Labs: Labs Reviewed by me and Discussed with Patient
--- NOTE | 2025-01-14 08:39 | W.PN.GI.CBS2 ---
Today's Communication / Plan
-
No further bleeding overnight
Advance to low residue diet
Hopefully cauterized/clipped colonic ectasias were the source, but may not be the only source
Hgb up to 10.1.
If rebleed, can re-discuss transfer to [place] for double balloon enteroscopy to try to locate red spots on capsule study
Assessment / Plan
-
Summary: Pt is a 74yo with hx von willebrand's disease, meningoma, NIDDM- pre DM, HTN, sleep apnea, thyroid nodule with recent admission in October with normocytic heme neg anemia with brown stool during admission. She reports some black dark
stool prior to that admission. She received 3 units PRBC's and IV iron for 5 doses with completion of EGD and colon without active bleeding. She was also followed by hematology with Humate and TXA given prior to procedure. Her hbg was 9.1
discharge and she was recommended follow up with know GI Dr. Baer for capsule endoscopy which was completed and normal per patient since discharge. She had return to ER in November for near syncope vs allergic reaction with hbg 8.4. She then
returned 01/04- 01/05 with hbg 5.5 with further transfusion and total 5 units PRBC since October. She had hbg 01/05 noted 8.1 and now returns 4 days later with symptomatic anemia and hbg 6. Pt states long hx von Willebrand's but anemia issues
started in October 2024. Pt does report recent difficulty with hard stool which is not typical problem and noted red blood with about 1 tsp on blood. She also report dark stool with oral iron use and some diarrhea since starting Protonix and
some dizziness and shortness of breath. . Some bruising with IV's but denies falls, vaginal or urinary bleeding. She was noted with dark red stool in ER.
2018 colonoscopy -- removal of 2.5cm sessile serrated polyp with placement of 5 clips and tattooed at site(no path reviewed). Repeat colonoscopy was recommended 6-12 months. She did have repeat
2020 colonoscopy --with report not reviewed and due again soon for repeat testing with Dr. Baer.
9/18 Hgb 6.2.
EGD 11/06/24- [facility] - Normal esophagus.- Gastritis, characterized by erythema. Biopsied.- A single gastric polyp. Resected and retrieved.- Duodenitis Biopsied.
COLON 11/08/24- Do - cecal and sigmoid polyps. Old tattoo ascending colon. Hemorrhoids. Diverticulosis
11/08 Hgb 9.1 on d/c
12/07 CAPSULE ENDO ([facility]) -- Overall negative study with a few red sponts but no active bleeding or significant AVM disease. First duodenal image at 17 min. Red spot at 1h 3 min and 1h 26 min. Unlabelled pictures taken at 2h 40 min and 3h
37min. Colon entered at 4h 54min.
01/04 Hgb 5.5. Transfused and d/c Hgb 8.1 on 01/05
01/09 This admission with Hgb 6.0
01/09/25- 2 units PRBCs
01/11/25- 1 unit PRBC
01/13/25 COLON- Two small ectasias in cecum and ascending colon cauterized w APC and clipped. Both bled with cautery. Tattoo in ascending colon. Sigmoid diverticuli
Impression:
GI bleeding s/p cautery two colonic ectasias and clips 01/13
-recurrent anemia since October
-red spots on capsule endo at [facility] in November
-recent dark stool with iron then maroon stool on admission
-diarrhea with Protonix use
-hx resection of large Sessile serrated polyp 2018
-hx von Willebrand's disease
-murmur on exam
other med problems:
-meningoma
-NIDDM- pre DM
- HTN
-sleep apnea
-hx appe
Subjective
Subjective
Date of Service: January 14, 2025
No BMs overnight. No complaints. Clears for breakfast this am
Objective
Data Reviewed
Laboratory Data:
Laboratory Results
01/14/25 05:32
01/14/25 05:32
Laboratory Results
PT 13.6 Sec (11.4-14.6) 01/09/25 09:56
INR 1.01 01/09/25 09:56
APTT 39.0 Sec (23.4-35.0) H 01/09/25 09:56
Total Bilirubin 0.2 mg/dl (0.2-1.3) 01/09/25 09:56
AST 15 U/L (14-36) 01/09/25 09:56
ALT 14 U/L (0-35) 01/09/25 09:56
Alkaline Phosphatase 54 U/L (38-126) 01/09/25 09:56
Vital Signs and I&O:
Vital Signs
Temp Pulse Resp BP Pulse Ox
97.8 F 60 16 126/77 95
01/14/25 07:12 01/14/25 06:00 01/12/25 17:05 01/14/25 06:00 01/14/25 00:00
I&O
01/13/25 01/14/25 01/15/25
06:59 06:59 06:59
Intake Total 240 / 240
Output Total 4 / 4
Balance 236 / 236
Physical Exam
Physical Exam
GI: Soft, Non Distended and Non Tender
[2025-01-14] MEDS: ZESTRIL 20 MG PO (08:40)
[2025-01-14] MEDS: PEPCID 20 MG PO ×2 (08:40→20:05)
--- NOTE | 2025-01-14 09:08 | CM ---
Reviewed chart. Titus trn has been denied. Pt is on ADAT diet and is self care. Met with to discuss DCP. No needs identified. Pt is agreeable to home with no needs
Plan: DC to home no needs
--- NOTE | 2025-01-14 10:36 | PTCARENOTE ---
Patient with no complaints. VSS. Tolerating CLD. No new BMs. Patient able to make needs known. Continuing to closely monitor.
[2025-01-14] MEDS: FERRLECIT 110 MG IV (14:44)
[2025-01-14] MEDS: MELATONIN 5 MG PO (20:06)
[2025-01-15] VITALS (9 sets, daily range): BP systolic 97–146; BP diastolic 54–77
[2025-01-15 05:43] LABS: Hematocrit 29.0 % (37.0-47.0); Hemoglobin 9.3 g/dL (12.0-16.0); Mean Corp Hgb Conc. 32.1 g/dL (33.0-37.0); Mean Corpuscular Volume 98.6 fL (81.0-99.0); Platelet Count 270 10^3/uL (130-400); Red Cell Dist. Width 17.4 % (11.5-14.5)
--- NOTE | 2025-01-15 05:46 | PTCARENOTE ---
Pt had 1 BM this shift. Liquid brown stool; no visible blood. No c/o dizziness. Resting in bed with call escalera in reach.
[2025-01-15 06:08] LABS: Blood Urea Nitrogen 8 mg/dl (7-17); Calcium 9.2 mg/dl (8.4-10.2); Carbon Dioxide 26 mmol/L (22-30); Chloride 108 mmol/L (98-107); Estimated Creatinine Clearance 87 ml/min; Glucose 107 mg/dl (70-99); Potassium 4.3 mmol/L (3.5-5.1); Sodium 138 mmol/L (135-145); eGFR > 60.00
[2025-01-15] MEDS: PEPCID 20 MG PO ×2 (07:45→20:58)
[2025-01-15] MEDS: ZESTRIL 20 MG PO (07:45)
--- NOTE | 2025-01-15 08:44 | W.PN.HOSP.TC ---
Today's Communication/Plan
-
Monitor hemoglobin
Assessment / Plan
Assessment / Plan
Physical exam:
General: Acute and chronically ill
HEENT: Normocephalic, Atraumatic and Moist Mucous Membranes
Respiratory: Clear to Auscultation; Negative Wheezes, Rales or Rhonchi
Cardiac: Regular Rhythm and S1/S2
GI: Soft, Nontender and Nondistended
Musculoskeletal: No Clubbing, No Cyanosis and No Edema
Neuro: Awake, Alert and Oriented, no neurological deficits
Psych: Calm
A/P:
HPI: 74-year-old female with PMH von Willebrand's disease follows with Dr. Beckford, recurrent GI bleeding, iron deficiency, recent transfusion and was discharged a few days ago; p/w fatigue and loose bloody stool.
Denies to syncope, abd pain, chest pain, fever/chills, change in urination etc,
A/P:
# weakness due to symptomatic acute on chronic anemia
# Acute blood loss anemia with GIB, possibly related to colonic angioectasia
# h/o von Willebrand disease
Today on 01/15 hemoglobin appears to be stable recheck tomorrow to ensure stability. If hemoglobin remains stable plan to discharge. GI noted that she need close monitoring as outpatient for IV iron as needed with her electronics maintenance technician. There is
certainly an increased risk of bleeding from AVM and von Willebrand disease. Last treatment on 01/13. Hgb at 9.3 and repeat this afternoon 10.3 today. Can transfer out of IMU today.
Prior to today:
noted recent EGD 11/06 showed gastritis, duodenitis s/p biopsies; recent Colonoscopy showed polypectomy, internal hemorrhoids and diverticular disease
Hgb 6.0 on admission, s/p 3 units PRBC transfusion, Hgb at 9.3 and repeat this afternoon 10.3 today. GI recommends to recheck hemoglobin tomorrow while inpatient.
s/p 4 units of Humate-P
s/p Small bowel enteroscopy 01/10, result was unrevealing
Bleeding scan negative for active intestinal bleeding.
s/p C scope 01/13, noted two colonic angiectasias, treated with APC and clips were placed.
On low residue diet per GI
Finished course IV iron, cont pepcid BID
GI on board, heme on board
Of note, transfer to [place] has been initiated (for double balloon enteroscopy eval), however since there has been no significant GI bleed and pt is improving clinically (BP stable, Hgb improving, blood BM resolving), [place] has deferred transfer at
this time.
# HTN
Cont ART FRAMING MANAGER lisinopril with hold parameter
# NIDDM
hold ART FRAMING MANAGER metformin for now
could add ISS if BG starts to increase although previous note indicated pt had refused before
# Obesity due to Excess Calories
BMI 35
# questionable heart murmur
Echo showed mild aortic stenosis, Normal left ventricular size and systolic function. EF 70-75%. Compared to previous echo from July 2017, there is now mild aortic stenosis.
# h/o recent LUE clot from 12/06/2024
LUE US this admission 01/10/2025 showed improved small nonocclusive thrombus in the cephalic vein.
DVT ppx: SCD
FC
Total time spent on today's encounter was 35 minutes which included time spent in counseling the patient/family regarding diagnosis and treatment plan as listed above, goals of care, and symptom management. Case was discussed with nursing staff,
specialists, and care coordinators/case management. All labs and imaging personally reviewed by me. Remainder the time spent in detailed review of previous records, lab data, imaging, and other medical provider documentation.
Anticipated Discharge: Within 24 hours
Subjective/Interval History
-
Date of Service: January 15, 2025
Patient denies any nausea or vomiting. Denies any abdominal pain. Last bowel movement yesterday.
Objective Data
-
Labs:
Laboratory Results
01/15/25 01/15/25
05:32 13:00
WBC 4.3 L Pending
Hgb 9.3 L Pending
Hct 29.0 L Pending
Plt Count 270 Pending
Sodium 138
Potassium 4.3
Chloride 108 H
Carbon Dioxide 26
BUN 8
Creatinine 0.6
Glucose 107 H
Calcium 9.2
Vital Signs:
Vital Signs
Temp Pulse Resp BP Pulse Ox
98.2 F 78 18 116/71 96
01/15/25 08:00 01/15/25 08:00 01/15/25 08:00 01/15/25 07:45 01/15/25 08:00
--- NOTE | 2025-01-15 09:12 | W.PN.GI.CBS2 ---
Addendum entered and electronically signed by Peter Stanton MD 01/15/25 12:56:
I saw and examined the patient.
The HUMAN RESOURCE STATISTICIAN or PA's note was reviewed and I agree with the note.
Comment: 74-year-old female past medical history of von Willebrand's disease presenting with recurrent bleeding. Most recent colonoscopy showed AVMs which have been treated on January 13. There is increased risk of AVMs in von Willebrand disease
as well. We discussed she may have additional AVMs as well. Sometimes this is treated supportively. We have reached out to her rolls baker regarding setting up close monitoring as an outpatient and IV iron as needed. Repeat hemoglobin is
pending. If her hemoglobin remains stable, plan for discharge planning. Patient was no further overt bleeding.
Addendum entered and electronically signed by XAVI Ramirez 01/15/25 09:39:
pt is scheduled 02/14/[address] wilder at 7:30 AM
Original Note:
Today's Communication / Plan
-
pt feeling better last stool last PM liquid yellow no blood seen
s/p enteroscopy and colonoscopy with Two small ectasias in cecum and ascending colon cauterized w APC and clipped
hbg 10.1 then 9.3 will repeat at 1 PM then in AM
s/p ferric gluconate --pt report hx reaction with OP iron but tolerating recent infusion
remains on Pepcid BID
cont diet as tolerated
I sent message to Dr. Sutton for OP follow up for frequent checks and iron as needed
I also sent message for GI follow up
Assessment / Plan
-
Summary: Pt is a 74yo with hx von willebrand's disease, meningoma, NIDDM- pre DM, HTN, sleep apnea, thyroid nodule with recent admission in October with normocytic heme neg anemia with brown stool during admission. She reports some black dark
stool prior to that admission. She received 3 units PRBC's and IV iron for 5 doses with completion of EGD and colon without active bleeding. She was also followed by hematology with Humate and TXA given prior to procedure. Her hbg was 9.1
discharge and she was recommended follow up with know GI Dr. Baer for capsule endoscopy which was completed and normal per patient since discharge. She had return to ER in November for near syncope vs allergic reaction with hbg 8.4. She then
returned 01/04- 01/05 with hbg 5.5 with further transfusion and total 5 units PRBC since October. She had hbg 01/05 noted 8.1 and now returns 4 days later with symptomatic anemia and hbg 6. Pt states long hx von Willebrand's but anemia issues
started in October 2024. Pt does report recent difficulty with hard stool which is not typical problem and noted red blood with about 1 tsp on blood. She also report dark stool with oral iron use and some diarrhea since starting Protonix and
some dizziness and shortness of breath. . Some bruising with IV's but denies falls, vaginal or urinary bleeding. She was noted with dark red stool in ER. Pt admits to reaction with IV iron as outpatient prior to admission.
2018 colonoscopy -- removal of 2.5cm sessile serrated polyp with placement of 5 clips and tattooed at site(no path reviewed). Repeat colonoscopy was recommended 6-12 months. She did have repeat
2020 colonoscopy --with report not reviewed and due again soon for repeat testing with Dr. Bear.
11/02 Hgb 6.2.
EGD 11/06/24- [facility] - Normal esophagus.- Gastritis, characterized by erythema. Biopsied.- A single gastric polyp. Resected and retrieved.- Duodenitis Biopsied.
COLON 11/08/24- Do - cecal and sigmoid polyps. Old tattoo ascending colon. Hemorrhoids. Diverticulosis
11/08 Hgb 9.1 on d/c
12/07 CAPSULE ENDO ([facility]) -- Overall negative study with a few red spots but no active bleeding or significant AVM disease. First duodenal image at 17 min. Red spot at 1h 3 min and 1h 26 min. Unlabelled pictures taken at 2h 40 min and 3h
37min. Colon entered at 4h 54min.
01/04 Hgb 5.5. Transfused and d/c Hgb 8.1 on 01/05
01/09 This admission with Hgb 6.0
01/09/25- 2 units PRBCs
01/10/25 Enteroscopy -mekapati normal esophagus, small HH, few small sessile polyps gastric fundus, no pathology in duodenum and jejunum
01/11/25- 1 unit PRBC
01/13/25 COLON- wilder Two small ectasias in cecum and ascending colon cauterized w APC and clipped. Both bled with cautery. Tattoo in ascending colon. Sigmoid diverticuli
Laboratory Tests
01/09/25 01/10/25 01/11/25
09:56 05:03 04:27
Hgb 6.0 L* D 7.5 L D 7.2 L
01/12/25 01/13/25 01/14/25
04:44 05:25 05:32
Hgb 8.1 L 9.0 L 10.1 L
01/15/25
05:32
Hgb 9.3 L
Impression:
GI bleeding s/p cautery two colonic ectasias and clips 01/13
-recurrent anemia since October
-red spots on capsule endo at [facility] in November
-recent dark stool with iron then maroon stool on admission
-diarrhea with Protonix use
-hx resection of large Sessile serrated polyp 2018
-hx von Willebrand's disease
-murmur on exam
other med problems:
-meningoma
-NIDDM- pre DM
- HTN
-sleep apnea
-hx appe
PLAN:
pt feeling better last stool last PM liquid yellow no blood seen
s/p enteroscopy and colonoscopy with Two small ectasias in cecum and ascending colon cauterized w APC and clipped
hbg 10.1 then 9.3 will repeat at 1 PM then in AM
s/p ferric gluconate --pt report hx reaction with OP iron but tolerating recent infusion
remains on Pepcid BID
cont diet as tolerated
I sent message to Dr. Sutton for OP follow up for frequent checks and iron as needed
I also sent message for GI follow up
Subjective
Subjective
Date of Service: January 15, 2025
last stool no blood and liquid similar to broth she had beed eating, last stool recorded in chart 01/14 rama, on low residue diet
Objective
Data Reviewed
Laboratory Data:
Laboratory Results
01/15/25 05:32
Laboratory Results
PT 13.6 Sec (11.4-14.6) 01/09/25 09:56
INR 1.01 01/09/25 09:56
APTT 39.0 Sec (23.4-35.0) H 01/09/25 09:56
Total Bilirubin 0.2 mg/dl (0.2-1.3) 01/09/25 09:56
AST 15 U/L (14-36) 01/09/25 09:56
ALT 14 U/L (0-35) 01/09/25 09:56
Alkaline Phosphatase 54 U/L (38-126) 01/09/25 09:56
Vital Signs and I&O:
Vital Signs
Temp Pulse Resp BP Pulse Ox
98.2 F 78 18 116/71 96
01/15/25 08:00 01/15/25 08:00 01/15/25 08:00 01/15/25 07:45 01/15/25 08:00
Physical Exam
Physical Exam
HEENT: Anicteric and Moist mucous membranes
Cardiology: Normal Sinus Rhythm
Pulmonary: Clear
GI: Soft, Non Distended and Non Tender
Neuro: Non Focal
--- NOTE | 2025-01-15 09:43 | PTCARENOTE ---
Patient AOx3. NSR on the monitor. BP stable. On RA with SpO2 greater than 92%. Independent in room. Tolerating oral diet. No BM's during shift. Call escalera within reach, bed in lowest position, and bed of wheels locked.
--- NOTE | 2025-01-15 09:57 | PTCARENOTE ---
Patient transferred to 3W. Verbal report given to ALEE Peacock. Patient belongings transferred with patient.
--- NOTE | 2025-01-15 10:05 | PTCARENOTE ---
Received pt from IMU via stretcher. AAOx3. Ambulated to bed x1. Assessed and oriented to room. No complaints of pain. teletypesetter monitor placed. Pt verbalized understanding of all escalera. Call escalera within close reach.
[2025-01-15 13:15] LABS: Hematocrit 32.9 % (37.0-47.0); Hemoglobin 10.3 g/dL (12.0-16.0); Mean Corp Hgb Conc. 31.3 g/dL (33.0-37.0); Mean Corpuscular Volume 98.2 fL (81.0-99.0); Platelet Count 320 10^3/uL (130-400); Red Cell Dist. Width 17.7 % (11.5-14.5)
--- NOTE | 2025-01-15 15:53 | PTCARENOTE ---
Stool formed, brown, moderate. Gastro LUGGAGE REPAIRER made aware.
--- NOTE | 2025-01-15 21:29 | W.PN.ONC2 ---
Today's Communication / Plan
-
Hemoglobin improved.
I feel the benefit of TXA, if bleeding again, would outweigh risk associated with small upper extremity superficial venous thrombosis.
F/U with Dr. Beckford as outpt
No objection to d/c home.
Impression
Impression
GI bleed
anemia, iron def
von willlebrand disease
Plan
Plan
s/p Humate P 01/09 - 01/11.
Recurrent bleeding on 01/12; got additional humate-P 01/12 and 01/13.
Hgb steadily improving, home soon
Subjective/Objective
Chief Complaint
Heme follow up of von Willebrand disease
Subjective
Pt concerned about drop in Hgb overnight as hemoglobin had been increasing steadily since colonoscopy during which two angioectasias were cauterized. Pt stating that tranexamic acid cannot be used for her due to recent history of upper extremity
superfical venous thrombosis. She denies bleeding. Fortunately repeat CBC shows Hgb back up to 10.3.
Vital Signs:
Vital Signs
Temp Pulse Resp BP Pulse Ox
98.5 F 83 18 107/71 96
01/15/25 19:10 01/15/25 19:10 01/15/25 19:10 01/15/25 19:10 01/15/25 19:10
Lab Results:
Laboratory Data
WBC 5.6 10^3/uL (4.8-10.8) 01/15/25 13:08
Hgb 10.3 g/dL (12.0-16.0) L 01/15/25 13:08
Plt Count 320 10^3/uL (130-400) 01/15/25 13:08
PT 13.6 Sec (11.4-14.6) 01/09/25 09:56
INR 1.01 01/09/25 09:56
APTT 39.0 Sec (23.4-35.0) H 01/09/25 09:56
eGFR > 60.00 01/15/25 05:32
[2025-01-15] MEDS: MELATONIN PO (21:46)
[2025-01-16 03:10] VITALS: BP 108/61
[2025-01-16 07:00] VITALS: BP 114/65
[2025-01-16 07:28] LABS: Hematocrit 32.5 % (37.0-47.0); Hemoglobin 9.9 g/dL (12.0-16.0); Mean Corp Hgb Conc. 30.5 g/dL (33.0-37.0); Mean Corpuscular Volume 98.8 fL (81.0-99.0); Platelet Count 322 10^3/uL (130-400); Red Cell Dist. Width 17.3 % (11.5-14.5)
[2025-01-16] MEDS: PEPCID 20 MG PO (07:45)
--- NOTE | 2025-01-16 10:47 | CM ---
Patient seen at bedside
IMM explained & signed. In chart
declines VN
PLAN: Home, no needs
to transport
[2025-01-16 11:00] VITALS: BP 127/66
--- NOTE | 2025-01-16 11:08 | W.PN.GI.CBS2 ---
Addendum entered and electronically signed by Peter Stanton MD 01/16/25 14:58:
I saw and examined the patient.
The REAL ESTATE SPECIALIST or PA's note was reviewed and I agree with the note.
Comment: 74-year-old female past medical history of von Willebrand's disease presenting with recurrent bleeding. Most recent colonoscopy showed AVMs which have been treated on January 13. There is increased risk of AVMs in von Willebrand disease
as well. We discussed she may have additional AVMs as well. Sometimes this is treated supportively. We have reached out to her forge operator helper regarding setting up close monitoring as an outpatient and IV iron as needed. Hb stable no further
bleeding pt to be discharged with follow up with Dr. Wilder.
Original Note:
Today's Communication / Plan
-
stools remain brown with stable hbg 9.9 today
s/p enteroscopy and colonoscopy with Two small ectasias in cecum and ascending colon cauterized w APC and clipped
OP follow up with heme for close follow of hbg and iron infusions
cont Pepcid BID
cont diet as tolerated discussed low fiber next week then slowly add fiber back to diet and resume fiber supplement
Pt scheduled 02/14 7:[address] wilder for follow up
stable from GI for discharge
will sign off call with questions
Assessment / Plan
-
Summary: Pt is a 74yo with hx von willebrand's disease, meningoma, NIDDM- pre DM, HTN, sleep apnea, thyroid nodule with recent admission in October with normocytic heme neg anemia with brown stool during admission. She reports some black dark
stool prior to that admission. She received 3 units PRBC's and IV iron for 5 doses with completion of EGD and colon without active bleeding. She was also followed by hematology with Humate and TXA given prior to procedure. Her hbg was 9.1
discharge and she was recommended follow up with know GI Dr. Baer for capsule endoscopy which was completed and normal per patient since discharge. She had return to ER in November for near syncope vs allergic reaction with hbg 8.4. She then
returned 01/04- 01/05 with hbg 5.5 with further transfusion and total 5 units PRBC since October. She had hbg 01/05 noted 8.1 and now returns 4 days later with symptomatic anemia and hbg 6. Pt states long hx von Willebrand's but anemia issues
started in October 2024. Pt does report recent difficulty with hard stool which is not typical problem and noted red blood with about 1 tsp on blood. She also report dark stool with oral iron use and some diarrhea since starting Protonix and
some dizziness and shortness of breath. . Some bruising with IV's but denies falls, vaginal or urinary bleeding. She was noted with dark red stool in ER. Pt admits to reaction with IV iron as outpatient prior to admission.
2018 colonoscopy -- removal of 2.5cm sessile serrated polyp with placement of 5 clips and tattooed at site(no path reviewed). Repeat colonoscopy was recommended 6-12 months. She did have repeat
2020 colonoscopy --with report not reviewed and due again soon for repeat testing with Dr. Baer.
11/02 Hgb 6.2.
EGD 11/06/24- [facility] - Normal esophagus.- Gastritis, characterized by erythema. Biopsied.- A single gastric polyp. Resected and retrieved.- Duodenitis Biopsied.
COLON 11/08/24- Do - cecal and sigmoid polyps. Old tattoo ascending colon. Hemorrhoids. Diverticulosis
11/08 Hgb 9.1 on d/c
12/07 CAPSULE ENDO ([facility]) -- Overall negative study with a few red spots but no active bleeding or significant AVM disease. First duodenal image at 17 min. Red spot at 1h 3 min and 1h 26 min. Unlabelled pictures taken at 2h 40 min and 3h
37min. Colon entered at 4h 54min.
01/04 Hgb 5.5. Transfused and d/c Hgb 8.1 on 01/05
01/09 This admission with Hgb 6.0
01/09/25- 2 units PRBCs
01/10/25 Enteroscopy -mekapati normal esophagus, small HH, few small sessile polyps gastric fundus, no pathology in duodenum and jejunum
01/11/25- 1 unit PRBC
01/13/25 COLON- wilder Two small ectasias in cecum and ascending colon cauterized w APC and clipped. Both bled with cautery. Tattoo in ascending colon. Sigmoid diverticuli
Laboratory Tests
01/09/25 01/10/25 01/11/25
09:56 05:03 04:27
Hgb 6.0 L* D 7.5 L D 7.2 L
01/12/25 01/13/25 01/14/25
04:44 05:25 05:32
Hgb 8.1 L 9.0 L 10.1 L
01/15/25
05:32
Hgb 9.3 L
Laboratory Tests
01/15/25 01/16/25
13:08 06:31
Hgb 10.3 L 9.9 L
Impression:
GI bleeding s/p cautery two colonic ectasias and clips 01/13
-recurrent anemia since October
-red spots on capsule endo at [facility] in November
-recent dark stool with iron then maroon stool on admission
-diarrhea with Protonix use
-hx resection of large Sessile serrated polyp 2018
-hx von Willebrand's disease
-murmur on exam
other med problems:
-meningoma
-NIDDM- pre DM
- HTN
-sleep apnea
-hx appe
PLAN:
stools remain brown with stable hbg 9.9 today
s/p enteroscopy and colonoscopy with Two small ectasias in cecum and ascending colon cauterized w APC and clipped
OP follow up with heme for close follow of hbg and iron infusions
cont Pepcid BID
cont diet as tolerated discussed low fiber next week then slowly add fiber back to diet and resume fiber supplement
Pt scheduled 02/14 7:[address] wilder for follow up
stable from GI for discharge
Subjective
Subjective
Date of Service: January 16, 2025
01/15 brown stool on low residue diet, some pain prior to BM but then resolves
Objective
Data Reviewed
Laboratory Data:
Laboratory Results
01/16/25 06:31
01/15/25 05:32
Laboratory Results
PT 13.6 Sec (11.4-14.6) 01/09/25 09:56
INR 1.01 01/09/25 09:56
APTT 39.0 Sec (23.4-35.0) H 01/09/25 09:56
Total Bilirubin 0.2 mg/dl (0.2-1.3) 01/09/25 09:56
AST 15 U/L (14-36) 01/09/25 09:56
ALT 14 U/L (0-35) 01/09/25 09:56
Alkaline Phosphatase 54 U/L (38-126) 01/09/25 09:56
Vital Signs and I&O:
Vital Signs
Temp Pulse Resp BP Pulse Ox
98.1 F 58 16 114/65 97
01/16/25 07:00 01/16/25 07:00 01/16/25 07:00 01/16/25 07:00 01/16/25 07:00
I&O
01/15/25 01/16/25 01/17/25
06:59 06:59 06:59
Intake Total 1200 / 1200
Balance 1200 / 1200
Physical Exam
Physical Exam
HEENT: Anicteric and Moist mucous membranes
Cardiology: Normal Sinus Rhythm
Pulmonary: Clear
GI: Soft, Non Distended and Non Tender
Extremities: No Edema
Neuro: Non Focal
--- NOTE | 2025-01-16 13:33 | W.PN.UPDATE ---
Update Note
Progress Note Update
Seen and examined the patient with the resident. Agree with the plan. See changes in my documentation
74-year-old female with history of von Willebrand disease presented with apparent GI bleed iron deficiency. Patient had blood transfusion recently and was discharged a few days prior to arrival. She had fatigue and loose bloody stool.
Seen earlier today. Patient was feeling well and no bleeding noted
Cardiovascular system S1-S2 appreciated
Chest clear to auscultation
Abdomen soft and nontender no pedal edema
# Symptomatic anemia secondary to acute GI blood loss , iron deficiency and exacerbated by von Willebrand disease
Not on any anticoagulants or antiplatelets as outpatient
Hemoglobin was 6.0 on admission status post 3 units of PRBCs and 4 units of humate-P
Completed a course of IV iron
# GI bleed
Endoscopy/small bowel enteroscopy 01/10/2025-normal esophagus, small HH, few gastric polyps, normal duodenum, examined portion of jejunum normal
Bleeding scan 01/04/2025-negative for any active bleeding
Colonoscopy 01-13 25-2 colonic angiectasia's treated with APC's and clips. Diverticulosis in the sigmoid, tattoo site in the ascending colon appeared normal
Patient also completed a capsule study with Dr. Baer
Continue PPI and Pepcid
# Von Willebrand disease-status post 4 units of Humate-P
Hematology oncology following
# Hypertension-continue lisinopril
# Diabetes-hemoglobin A1c may not be reliable. Continue Accu-Cheks. Patient refused sliding scale in the past. Restart metformin
# Mild aortic stenosis
# History of left upper extremity cephalic vein thrombus on 12/06/2024-ultrasound on 01/11/2024 showed improvement
# History of meningioma
# Obesity with a BMI of 34
# DVT prophylaxis-SCDs
# Full code
Per discussion with GI and hematology okay for discharge
Transfer to [facility] was initiated for double-balloon enteroscopy however since bleeding has improved and has deferred transfer at this time
More than 30 minutes spent in discharge including
Final examination of the patient
Summarizing hospital stay
Instructions for continuing care to all relevant caregivers
Preparation of discharge records, prescriptions, and referral forms
Part of this note was created using voice recognition system. Occasional wrong word or��sound alike� substitutions may have inadvertently occurred due to the inherent limitations of voice recognition software. If noted kindly bring it to my
attention for correction.
[2025-01-16 14:14] VITALS: BP 137/66
--- NOTE | 2025-01-16 16:44 | W.PN.HOSP.TC ---
Today's Communication/Plan
-
- Discharge home today
- Will follow-up outpatient with hematology for hemoglobin monitoring
Assessment / Plan
Assessment / Plan
# Weakness due to symptomatic acute on chronic anemia
# Acute blood loss anemia with GIB, possibly related to colonic angioectasia
# h/o von Willebrand disease
- Today hemoglobin is stable at 9.9.
- Plan for discharge home. GI and heme-onc in agreements for discharge today.
- Close monitoring with outpatient hematology for IV infusions as needed
# HTN
Cont lisinopril
# NIDDM
Holding metformin, will restart on discharge
# Aortic stenosis
- Echo showed mild aortic stenosis, Normal left ventricular size and systolic function. EF 70-75%. Compared to previous echo from July 2017, there is now mild aortic stenosis.
# h/o recent LUE clot from 12/06/2024
LUE US this admission 01/10/2025 showed improved small nonocclusive thrombus in the cephalic vein.
Anticipated Discharge: Today
Subjective/Interval History
-
Date of Service: January 16, 2025
Patient seen today sitting up in bedside. Patient feels well and is asking about when she will be discharged today. Patient denies any blood in her bowel movements. Patient denies shortness of breath, chest pain, nausea, vomiting.
Objective Data
-
Labs:
Laboratory Results
01/16/25
06:31
WBC 5.2
Hgb 9.9 L
Hct 32.5 L
Plt Count 322
Vital Signs:
Vital Signs
Temp Pulse Resp BP Pulse Ox
98.6 F 78 16 137/66 97
01/16/25 14:14 01/16/25 14:14 01/16/25 14:14 01/16/25 14:14 01/16/25 14:14
I&O
12/03/1101/16/25 01/17/25
06:59 06:59 06:59
Intake Total 1200 / 1200
Balance 1200 / 1200
Review of Systems
-
History Source: Patient
Constitutional: Reports No Symptoms
EENT: Reports No Symptoms Reported
Respiratory: Reports No Symptoms
Cardiac: Reports No Symptoms
Abdomen/GI: Reports No Symptoms
Breast: Reports No Symptoms
Genitourinary: Reports No Symptoms
Musculoskeletal: Reports No Symptoms
Skin: Reports No Symptoms
Neuro: Reports No Symptoms
Endocrine: Reports No Symptoms
Hematologic / Lymphatic: Reports No Symptoms
Allergy / Immunology: Reports No Symptoms
Physical Exam
-
General: Well Developed, Well Nourished and No Apparent Distress
HEENT: Normocephalic, Atraumatic and Moist Mucous Membranes
Respiratory: Clear to Auscultation
Cardiac: Regular Rhythm and S1/S2
GI: Soft, Nontender and Nondistended
Musculoskeletal: No Edema
Skin: Warm and Dry
Neuro: Awake, Alert and Oriented
Psych: Calm
--- NOTE | 2025-01-16 17:36 | W.DCSUMMARY ---
Discharge Summary
Discharge Data
Date of Admission: 01/09/25
Date of Discharge: 01/16/25
-
Pending Results: No
Hospital Course
Primary diagnosis: Symptomatic acute on chronic anemia, acute blood loss anemia with GI bleed, history of von Willebrand disease
Secondary diagnosis: Aortic stenosis, left upper extremity clot, diabetes
Hospital course:
Patient is a 74-year-old female with past medical history significant for von Willebrand disease, hypertension, iron deficiency anemia, history of Lyme disease, obstructive sleep apnea, history of a meningioma. Patient has a recent history of
recurrent anemia, and dark bloody bowel movements. Patient underwent a recent GI workup on 11/06 which included a colonoscopy and capsule study without finding any acute bleeding source. 01/04, patient was seen in the ED here for bloody bowel
movements found to have a hemoglobin of 5.5. Patient was given blood transfusion at that time. 5 days later on 01/09, patient presented to [facility] again with bloody bowel movements, symptomatic anemia found to have a hemoglobin of 6. Patient
was transfused 2 units PRBCs and was given Humate-P. Patient was admitted for further workup.
During admission patient received 3 units of PRBCs, 4 units of humate. Patient transfer was initiated to [facility] for a double-balloon enteroscopy evaluation. 01/10 patient had a bowel enteroscopy which was unrevealing. 01/12 patient had a nuclear
med GI bleed scan which was negative. On 01/13 patient had a C-scope completed which revealed 2 colonic angiectasia's which were treated with APC and clips. Patient also received a course of IV iron during admission. Since the C-scope, patient
has not experienced any blood in her stool. Hemoglobin was trended and stayed stable. The transfer to [facility] was deferred. Without source of active bleeding at this time and with stable hemoglobin, gastroenterology and hematology agree
that the patient can be discharged home with close monitoring and follow-up of her hemoglobin.
During admission patient also had an echo completed for a questionable heart murmur. Echo indicated mild aortic stenosis and showed normal left ventricular function with an ejection fraction of 70 to 75%. There is mild aortic stenosis is noted to
be new since her last echo in 2018. Patient plans to follow-up with cardiology outpatient on discharge.
Additionally patient had a visualized left upper extremity blood clot on 12/06/2024 that was reimaged with extremity ultrasound. The ultrasound showed an improved small nonocclusive thrombus in the cephalic vein.
Patient was seen by case management and decided discharge home without needs was appropriate. Patient was discharged home today.
Imaging:
01/10/2025: Peripheral vascular ultrasound
FINDINGS:
Small nonocclusive thrombus in the cephalic vein at the level of the antecubital fossa. Slight improvement compared to the recent ultrasound from 12/06/2024.
The left internal jugular, subclavian, axillary, brachial, and basilic veins are patent.
01/12/25 GI bleed Scan Nuclear Medicine
FINDINGS:
There is no abnormal focus of activity to suggest active intestinal bleeding
Physiologic vascular, splenic and cardiac blood pool activity are noted.
Impression:
No findings to confirm active intestinal bleeding.
01/10/2025 echo
SUMMARY
1. Normal left ventricular size, wall thickness and systolic function. No regional wall motion abnormalities are seen. No regional wall motion abnormalities. Ejection fraction is 70-75% by De La Garza's method of discs. Normal LV diastolic function.
Hyperdynamic left ventricular systolic function.
2. Mild aortic stenosis with peak and mean gradients of 24 and 9 mmHg respectively. Trace aortic regurgitation.
3. Compared to previous echo from July 2017, there is now mild aortic stenosis.
Discharge Plan
-
Patient Disposition: Home with Home Care
Discharge Diagnosis/Procedures: Weakness due to symptomatic acute on chronic anemia;
GI bleed possibly related to colonic angioectasia (treated);
h/o von Willebrand disease
Diabetes mellitus type 2, [id number]
Essential hypertension
Osteoarthritis
Obstructive sleep apnea
Class II obesity
H/o meningioma
Condition: Fair
Diet: As tolerated, Diabetic, Carb Controlled and Other diet
Additional Diets: low fiber for 1 week. In constipation add back benefiber and slowly increased fiber back to diet
Activity: As tolerated
Driving Restrictions: As prior to admission
Bathing Restrictions: None
Blood Work: cbc 2 weeks ( script from PCP)
Activity Restrictions/Additional Instructions:
Please follow-up your battery tester field at your appointment on 02/14/2025
Please follow-up with your PCP within 1 week.
Please follow up with Dr. Beckford for close follow ip of hgb and iron infusions.
Diet recommendations per GI: Continue diet as tolerated, low fiber next week then slowly add fiber back to diet and resume fiber supplement
Referrals:
Shane Beckford DO [Active, Hematology / Oncology]
Andres George MD [Active, Gastroenterology] - 02/14/25 7:30 am
Referral Note: follow up with Dr. George as scheduled
Twila Varela MD [Family Provider, Family Practice] - in less than 1 week
Prescriptions:
New
famotidine 20 mg Tablet
20 mg PO BID 30 Days Qty: 60 0RF
Continued
ascorbic acid (vitamin C) [Vitamin C] 500 MG tablet
1,000 mg PO DAILY
cholecalciferol (vitamin D3) [Vitamin D3] 400 UNITS tablet
800 units PO QPM
metformin 500 mg Tablet
500 mg PO BID
lisinopril 20 mg Tablet
20 mg PO DAILY
therapeutic multivitamin Tablet
1 tab PO DAILY
ferrous sulfate 325 mg (65 mg iron) tablet
325 mg PO Q48H
magnesium oxide 200 mg magnesium Tablet
200 mg PO DAILY
Discontinued
pantoprazole [Protonix] 40 mg tablet,delayed release (DR/EC)
40 mg PO DAILY Qty: 30 0RF
Discharge Orders:
Discharge Patient (As Directed); Ordered 01/16/25
Ordered By: Kira Crystal
Discharge Date and Time
Discharge Date/Time: 01/16/25 14:47
Print Language: BAHAMIAN
== END 2025-01-16 14:47 | disposition home or self-care (01) | DRG 378 ==
LOC: 3 WEST ACU 12:18
PROVIDERS: Nurse Practitioner Adult Health; Specialist; ADMITTING PHYSICIAN Internal Medicine; ATTENDING PHYSICIAN Hospitalist; CONSULT PHYSICIAN Internal Medicine Gastroenterology; CONSULT PHYSICIAN Internal Medicine Hematology & Oncology; EMERGENCY PHYSICIAN Emergency Medicine; FAMILY PHYSICIAN Family Medicine
PROC: 30233N1 Transfusion of Nonautologous Red Blood Cells into Peripheral Vein, Percutaneous Approach (ICD-10-PCS; 2025-01-09)
PROC: 0DJD8ZZ Inspection of Lower Intestinal Tract, Via Natural or Artificial Opening Endoscopic (ICD-10-PCS; 2025-01-10)
PROC: 0D5K8ZZ Destruction of Ascending Colon, Via Natural or Artificial Opening Endoscopic (ICD-10-PCS; 2025-01-13)
PROC: 0D5H8ZZ Destruction of Cecum, Via Natural or Artificial Opening Endoscopic (ICD-10-PCS; 2025-01-13)
DX: K55.21 Angiodysplasia of colon with hemorrhage (principal); D62 Acute posthemorrhagic anemia; D68.00 Von Willebrand disease, unspecified; I82.612 Acute embolism and thrombosis of superficial veins of left upper extremity; I10 Essential (primary) hypertension; E11.9 Type 2 diabetes mellitus without complications; E04.1 Nontoxic single thyroid nodule; G47.33 Obstructive sleep apnea (adult) (pediatric); E55.9 Vitamin D deficiency, unspecified; K57.30 Diverticulosis of large intestine without perforation or abscess without bleeding; I35.0 Nonrheumatic aortic (valve) stenosis; K44.9 Diaphragmatic hernia without obstruction or gangrene; K31.7 Polyp of stomach and duodenum; E78.5 Hyperlipidemia, unspecified; E66.812 Obesity, class 2; M19.90 Unspecified osteoarthritis, unspecified site; Z96.652 Presence of left artificial knee joint; Z91.040 Latex allergy status; Z79.84 Long term (current) use of oral hypoglycemic drugs; Z88.8 Allergy status to other drugs, medicaments and biological substances; Z68.35 Body mass index [BMI] 35.0-35.9, adult; Z86.19 Personal history of other infectious and parasitic diseases; Z86.0101 Personal history of adenomatous and serrated colon polyps
CPT/HCPCS: 36430; 78278; 80048; 80053; 82607; 82728; 82746; 83540; 83550; 85025; 85027; 85610; 85730; 86803; 86850; 86900; 86901; 86920; 93005; 93306; 93971; 96374; 99291; A9560; J2916; J7183; P9016; P9058